=== PATIENT | female | born 1955 | race Caucasian/White ===

== ENCOUNTER → 2016-02-15 | Outpatient (CLI) | payer OTHER ==
[~2016-02-15] MED LIST: ANT25 PO; CLC6 PO; CLON0.1T12 PO; EFFSR75 PO; FENO145T26 PO; GABA-113 PO; LEVO75TA5 PO; LISI10TA PO; LSNP/30 PO; MECL1TAB42 PO; MONT1TAB3 PO; ONDA4TAB10 SL; PANT1TAB48 PO; SNG10 PO
[2016-02-15 16:55] LABS: THYROID STIMULATING HORMONE 4.51 uIu/ml (0.300-4.500)
== END | disposition home or self-care (01) ==
LOC: C.LABBFT 11:45
PROVIDERS: ATTEND Internal Medicine
DX: E03.9 Hypothyroidism, unspecified (principal)

== ENCOUNTER → 2016-04-08 | Outpatient (CLI) | payer OTHER ==
--- NOTE | 2016-04-09 12:37 | MAMMOGRAPHY REPORT ---
BILATERAL DIGITAL SCREENING MAMMOGRAM TOMOSYNTHESIS WITH CAD: 04/08/2016 CLINICAL HISTORY: Routine screening. Patient has no complaints. TECHNIQUE: Breast tomosynthesis in addition to standard 2D mammography was performed. Current study was also evaluated with a Computer Aided Detection (CAD) system. COMPARISON: Comparison is made to exams dated: 04/03/2015 mammogram, 03/31/2014 mammogram, 03/28/2013 mammogram, 03/25/2011 mammogram, and 03/21/2010 mammogram - [facility]. BREAST COMPOSITION: The tissue of both breasts is heterogeneously dense, which may obscure small ma sses. FINDINGS: The parenchymal pattern is unchanged. No developing mass, architectural distortion or clu ster of suspicious microcalcifications is seen in either breast. IMPRESSION: ACR BI-RADS CATEGORY 2: BENIGN There is no mammographic evidence of malignancy. A 1 year screening mammogram is recommended. The p atient will receive written notification of the results. Approximately 10% of breast cancers are not detected with mammography. A negative mammographic repor t should not delay biopsy if a clinically suggestive mass is present. Joy Colindres M.D. ay/:04/08/2016 17:21:45 Larriman: Dayan JOAQUIN(Radha)(Corina), [facility] letter sent: Normal 1/2 BI-RADS Code: ACR BI-RADS Category 2: Benign
== END | disposition home or self-care (01) ==
LOC: C.MAMM 11:06
PROVIDERS: ATTEND Internal Medicine
DX: Z12.31 Encounter for screening mammogram for malignant neoplasm of breast (principal)

== ENCOUNTER → 2016-04-23 | Outpatient (CLI) | payer OTHER ==
[2016-04-23 12:32] LABS: ALT/SGPT 22 U/L (12-78); BLOOD UREA NITROGEN 14 mg/dl (7-18); BUN/CREATININE RATIO 18.4 (10-20); CALCIUM 9.5 mg/dl (8.5-10.1); CARBON DIOXIDE 27 mmol/L (21-32); CHLORIDE 104 mmol/L (98-107); CHOLESTEROL 171 mg/dl (0-200); CREATININE 0.75 mg/dl (0.60-1.20); GLUCOSE 96 mg/dl (70-99); POTASSIUM 3.9 mmol/L (3.5-5.1); SODIUM 139 mmol/L (136-145); TRIGLYCERIDES 233 mg/dl (0-150); VERY LOW DENSITY LIPOPROT CALC 47 mg/dl
[2016-04-23 12:41] LABS: ALB/GLOB RATIO 0.8 (0.9-2); ALKALINE PHOSPHATASE 70 U/L (45-117); AST/SGOT 22 U/L (15-37); CHOLESTEROL/HDL RATIO 3.6; HDL CHOLESTEROL 47 mg/dl; LDL CHOLESTEROL CALCULATED 77 mg/dl
[2016-04-23 12:47] LABS: ESTIMATED AVERAGE GLUCOSE 123 mg/dl; HA1C FLAG Normal (Normal)
--- NOTE | 2016-04-29 06:18 | CODING QUERY MEDICAL NECESSITY ---
SUPPORTING DIAGNOSIS NEEDED Akhil ZHANG, A supporting diagnosis is required for the test/procedure performed on this patient in order for us to be reimbursed by the patient's insurance. Please provide a supporting diagnosis for the following test/procedure listed below next to the test name along with your signature. *If there is no additional diagnosis for this patient that would support the following test/procedure please document that below next to the test/procedure. Test(s)/Procedure(s) that require a supporting diagnosis: * [id number] GLYCATED HEMOGLOBIN DIAGNOSIS: DATE OF SERVICE: 04/23/16 Provider Signature: Date: Thank you Wilner Ibarra [facility] Information Management Once completed, please kindly fax back to [phone] For questions please call [phone]
== END | disposition home or self-care (01) ==
LOC: C.LABBFT 07:33
PROVIDERS: ATTEND Internal Medicine
DX: I10 Essential (primary) hypertension (principal); E78.5 Hyperlipidemia, unspecified; E03.9 Hypothyroidism, unspecified; R73.03 Prediabetes

== ENCOUNTER 2016-08-15 21:48 | Emergency (ER) | payer OTHER ==
[~2016-08-15] VITALS: Ht 154.9 cm; Wt 96.8 kg
[~2016-08-15 21:48] MED LIST changes: -LEVO75TA5 PO; -LSNP/30 PO; -MECL1TAB42 PO; -MONT1TAB3 PO; -ONDA4TAB10 SL
[2016-08-15 21:49] VITALS: TEMP 36.9; Ht 154.9 cm; Wt 96.8 kg
[2016-08-15] MEDS ORDERED: IBUPROFEN 800 MG TAB PO STA (22:17)
[2016-08-15] MEDS ORDERED: ONDANSETRON INJ 2 MG/ML 2 ML VIAL IV STA (22:25)
[2016-08-15] MEDS ORDERED: SODIUM CHLORIDE 0.9% 1000ML 1,000 ML IV STA (22:25)
[2016-08-15] MEDS ORDERED: MONT1TAB3 PO (22:40)
[2016-08-15] MEDS ORDERED: MECL1TAB42 PO (22:40)
[2016-08-15] MEDS ORDERED: LSNP/30 PO (22:44)
[2016-08-15] MEDS ORDERED: LEVO75TA5 PO (22:44)
[2016-08-15] MEDS ORDERED: ONDA4TAB10 SL (23:00)
--- NOTE | 2016-08-15 23:01 | EMERGENCY ROOM VISIT NOTE ---
ED Visit Note First contact with patient: 22:04 CHIEF COMPLAINT: Sunburn over most of body from tanning bed HISTORY OF PRESENT ILLNESS: This 61-year-old female patient presents to the emergency department after they sustained a sunburn over most of her body from a tanning bed this afternoon. This occurred approximately 10 hours prior to arrival in the emergency department. The patient states she was at [employer], where she was in a standard tanning bed for 9 minutes. The patient was not wearing sunscreen. The patient states over the afternoon, she began experiencing nausea, lightheadedness, dizziness, chills, and significant pain over her back, buttocks, and most of the rest of her body. She rates her pain 10/10. The patient has not taken any medications for pain or the burn. Pain is worse with movement and pressure. Sensation is still present. There is no blistering. No other injury sustained. REVIEW OF SYSTEMS: A 6 system review of systems was completed with positives and pertinent negatives listed in the HPI. ALLERGIES: Hydrocodone, hydromorphone, morphine, oxycodone, propoxyphene, tramadol, Darvocet MEDICATIONS: meclizine, Singulair, venlafaxine, pantoprazole, lisinopril, fenofibrate, gabapentin, clonidine, colchicine, Synthroid PMH: Allergic anxiety, depression, GERD, hypertension, chronic pain, sleep disorder, gout, hypothyroidism SOCIAL HISTORY: And lives locally with her mother. She denies drug, tobacco use. The patient does admit to occasional alcohol use. PHYSICAL EXAM: Vital Signs reviewed, see Nurse's notes, vital signs stable, no fever. GENERAL: 61-year-old female, awake, alert, well appearing, no acute distress HEENT: Normocephalic, atraumatic. No carbonaceous sputum or singed nasal hair. Oropharynx without edema or erythema. NECK: No stridor LUNGS: Clear to ausculation. No wheezes or rales. CARDIAC: Regular rate, normal rhythm MUSCULOSKELETAL: No gross deformity. SKIN: Erythema and warmth, along with swelling, noted over the majority of the patient's body. Erythema is worse on patient's back, buttocks, chest, and upper legs. I estimate approximately 80-90% BSA is affected. There is no blistering. No signs of infection or foreign body. There is no skin sloughing. NEURO: No sensory or motor deficits noted over all dermatomes and myotomes tested. EMERGENCY DEPARTMENT COURSE AND DECISION MAKING: I examined the patient. The patient presented with widespread sunburn. No signs of airway involvement. There is no critical body part involvement or burn severity to warrant burn center referral. ER Treatment: The patient was given 1 L normal saline solution bolus and 4 mg Zofran IV for nausea and hydration. The patient was also given a dose of 800 mg by mouth ibuprofen. The patient does report improvement in her symptoms with these medications and fluids. I strongly encouraged the patient to drink plenty of fluids to maintain her hydration status. Discharge instructions reviewed. The patient was discharged home in stable condition. DIFFERENTIAL DIAGNOSIS: Infection, blisters, dehydration, systemic infection, and others DIAGNOSIS: Sunburn due to tanning bed DISCHARGE INSTRUCTIONS: For pain control, you can use the following nwir-eho-ybjisie medicines (if >12 yo): - Regular strength (325mg/tab) Tylenol (acetaminophen) 2 tabs every 4-6 hours as needed. Do not exceed 9 tablets in a 24 hour period. Avoid taking more than 3 grams (3000 mg) of Tylenol per day. This includes any other sources of acetaminophen you may take on a regular basis. - Regular strength (200 mg/tab) Advil (ibuprofen) 3-4 tabs every 6-8 hours as needed. Do not exceed a dose of 3200 mg per day. Keep yourself well hydrated. You should be drinking plenty of fluids throughout the day and night. Keep the skin well moisturized with a non-scented lotion. You may also use aloe for relief of discomfort. Monitor the burn for blisters or infection. If you experience increased redness , warmth, pus, drainage, you should return to the emergency department for further evaluation and treatment. Further, if you experience chest pain, dyspnea, increased nausea, vomiting, confusion, loss of consciousness, or other symptoms, return to the emergency department for further evaluation. Follow-up with your primary care provider in 2-3 days for recheck of burn and further evaluation and treatment. You may take Zofran as prescribed for nausea. Problem List Medical Problems: (1) ACUTE BRONCHITIS Status: Resolved (2) ACUTE TONSILLITIS Status: Resolved (3) BACTERIAL PNEUMONIA NOS Status: Resolved (4) BENIGN HYPERTENSION Status: Chronic (5) CARPAL TUNNEL SYNDROME Status: Resolved (6) CHR ETHMOIDAL SINUSITIS Status: Resolved (7) CONGESTIVE HEART FAILURE NOS Status: Chronic (8) DEPRESSIVE DISORDER NEC Status: Chronic (9) ESOPHAGEAL REFLUX Status: Chronic (10) FAM HX-DIABETES MELLITUS Status: Chronic (11) FAM HX-ISCHEM HEART DIS Status: Chronic (12) GOITER NOS Status: Resolved (13) HEPATITIS NOS Status: Chronic (14) HYPERTENSION NOS Status: Chronic (15) 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 Status: Chronic (16) LUMBOSACRAL SPONDYLOSIS Status: Chronic (17) OBESITY, NOS Status: Chronic (18) OBSTRUCTIVE SLEEP APNEA (ADULT) (PEDIATRIC) Status: Chronic (19) OSTEOPOROSIS NOS Status: Chronic (20) SACROILIITIS NEC Status: Chronic (21) Sciatica Status: Chronic Surgical Problems: (1) History of appendectomy Status: Resolved Current/Historical Medications Scheduled Clonidine Hcl (Catapres), 1 TAB PO HS Fenofibrate (Tricor ), 145 MG PO QAM Gabapentin (Neurontin), 300 MG PO HS Levothyroxine Sodium (Levothyroxine Sodium), 75 MG PO DAILY Lisinopril (Zestril), 30 MG PO DAILY Meclizine Hcl (Meclizine Hcl), 1 TAB PO QAM Montelukast Sodium (Singulair), 10 MG PO DAILY Ondasetron Odt (Zofran Odt), 4 MG SL Q6H Pantoprazole (Protonix), 40 MG PO QAM Venlafaxine Hcl (Effexor Extended Rel), 75 MG PO QAM Scheduled PRN Colchicine (Colcrys), 1 TAB PO DAILY PRN for GOUT FLARE-UP Allergies Coded Allergies: Hydrocodone (Unverified Allergy, Mild, ITCH, 08/01/15) Hydromorphone (Verified Allergy, Unknown, UN, 08/01/15) Morphine (Verified Allergy, Unknown, U NK, 08/01/15) Oxycodone (Verified Allergy, Unknown, UNK, 08/01/15) Propoxyphene (Verified Allergy, Unknown, UNK, 08/01/15) Tramadol (Unverified Allergy, Unknown, ITCH, 08/01/15) Uncoded Allergies: DARVOCET (Allergy, Mild, RASH, 07/05/15) Vital Signs Date Time Temp Pulse Resp B/P (MAP) Pulse Ox O2 Delivery O2 Flow Rate FiO2 08/16/16 00:00 88 18 118/62 99 08/15/16 23:15 92 18 113/55 99 Room Air 08/15/16 21:49 36.9 107 18 130/67 99 Room Air Medications Administered Medications (Trade) Dose Ordered Sig/Dory Route Start Time Stop Time Status Last Admin Dose Admin Ibuprofen (Motrin Tab) 800 mg NOW STAT PO 08/15/16 22:17 08/15/16 22:18 DC 08/15/16 22:47 800 MG Sodium Chloride 1,000 ml @ 999 mls/hr Q1H1M STAT IV 08/15/16 22:25 08/15/16 23:25 DC 08/15/16 22:46 999 MLS/HR Ondansetron HCl (Zofran Inj) 4 mg NOW STAT IV 08/15/16 22:25 08/15/16 22:26 DC 08/15/16 22:46 4 MG Departure Information Impression Primary Impression: Sunburn due to tanning bed Dispostion Home / Self-Care Condition GOOD Prescriptions Ondasetron Odt (ZOFRAN ODT) 4 Mg Tab 4 MG SL Q6H for Nausea, #6 TAB Prov: Meaghan Eubanks PA-C 08/15/16 Referrals Maxim Renee M.D. (PCP) Patient Instructions My [facility] Additional Instructions For pain control, you can use the following yjhj-gsy-opalyil medicines (if >12 yo): - Regular strength (325mg/tab) Tylenol (acetaminophen) 2 tabs every 4-6 hours as needed. Do not exceed 9 tablets in a 24 hour period. Avoid taking more than 3 grams (3000 mg) of Tylenol per day. This includes any other sources of acetaminophen you may take on a regular basis. - Regular strength (200 mg/tab) Advil (ibuprofen) 3-4 tabs every 6-8 hours as needed. Do not exceed a dose of 3200 mg per day. Keep yourself well hydrated. You should be drinking plenty of fluids throughout the day and night. Keep the skin well moisturized with a non-scented lotion. You may also use aloe for relief of discomfort. Monitor the burn for blisters or infection. If you experience increased redness , warmth, pus, drainage, you should return to the emergency department for further evaluation and treatment. Further, if you experience chest pain, dyspnea, increased nausea, vomiting, confusion, loss of consciousness, or other symptoms, return to the emergency department for further evaluation. Follow-up with your primary care provider in 2-3 days for recheck of burn and further evaluation and treatment. You may take Zofran as prescribed for nausea.
[2016-08-16] VITALS: BP 118/62; PULSE 88; O2SAT 99
== END 2016-08-16 | disposition home or self-care (01) ==
LOC: C.EDB 21:49 → C.EDD 08-16
DX: L56.8 Other specified acute skin changes due to ultraviolet radiation (principal); I11.0 Hypertensive heart disease with heart failure; K21.9 Gastro-esophageal reflux disease without esophagitis; R42 Dizziness and giddiness; M47.817 Spondylosis without myelopathy or radiculopathy, lumbosacral region; E66.9 Obesity, unspecified; J44.9 Chronic obstructive pulmonary disease, unspecified; M81.0 Age-related osteoporosis without current pathological fracture; M54.30 Sciatica, unspecified side; Z83.3 Family history of diabetes mellitus; Z82.49 Family history of ischemic heart disease and other diseases of the circulatory system; Z79.899 Other long term (current) drug therapy

== ENCOUNTER → 2016-08-27 | Outpatient (CLI) | payer OTHER ==
[~2016-08-27] MED LIST changes: -ANT25 PO; +LEVO75TA5 PO; -LISI10TA PO; +LSNP/30 PO; +MECL1TAB42 PO; +MONT1TAB3 PO; +ONDA4TAB10 SL; -SNG10 PO
[2016-08-27 12:46] LABS: ALT/SGPT 20 U/L (12-78); AST/SGOT 15 U/L (15-37); BLOOD UREA NITROGEN 27 mg/dl (7-18); BUN/CREATININE RATIO 24.7 (10-20); CALCIUM 9.9 mg/dl (8.5-10.1); CARBON DIOXIDE 29 mmol/L (21-32); CHLORIDE 106 mmol/L (98-107); GLUCOSE 102 mg/dl (70-99); MAGNESIUM 2.1 mg/dl (1.8-2.4); SODIUM 139 mmol/L (136-145)
[2016-08-27 12:54] LABS: ALB/GLOB RATIO 0.9 (0.9-2); ALKALINE PHOSPHATASE 71 U/L (45-117); CHOLESTEROL 164 mg/dl (0-200); CHOLESTEROL/HDL RATIO 3.4; HDL CHOLESTEROL 48 mg/dl; LDL CHOLESTEROL CALCULATED 75 mg/dl; TRIGLYCERIDES 204 mg/dl (0-150); VERY LOW DENSITY LIPOPROT CALC 41 mg/dl
[2016-08-27 13:25] LABS: ESTIMATED AVERAGE GLUCOSE 120 mg/dl; HA1C FLAG Normal (Normal)
== END | disposition home or self-care (01) ==
LOC: C.LABBFT 09:10
PROVIDERS: ATTEND Physician Assistant Medical
DX: E78.5 Hyperlipidemia, unspecified (principal); E03.9 Hypothyroidism, unspecified; R60.9 Edema, unspecified; R73.03 Prediabetes

== ENCOUNTER → 2016-11-06 | Outpatient (CLI) | payer OTHER ==
--- NOTE | 2016-11-06 09:38 | DIAGNOSTIC IMAGING REPORT ---
BRAIN WITHOUT CONTRAST CLINICAL HISTORY: 61 years-old Female presenting with NEW ONSET HEADACHES and dizziness, no trauma. TECHNIQUE: Multisequence, multiplanar MR imaging of the brain was performed without the use of intravenous contrast. IV contrast: None. COMPARISON: CT head from 03/20/2014 and MR brain from 2005. FINDINGS: Ventricles and sulci normal in size. Multiple (nearly 20) foci of subcortical white matter T2/FLAIR hyperintensity, nonspecific. No mass effect or midline shift. No restricted diffusion to suggest acute ischemia. No hemorrhage. No extra-axial fluid collection. T2 skull base flow voids preserved. Bone marrow signal intensity within the calvarium within normal limits. IMPRESSION: 1. No acute intracranial pathology. 2. Multiple nonspecific foci of subcortical white matter abnormal signal intensity. The appearance is not significant changed since 2005. This could be secondary to chronic small vessel ischemic change, demyelinating disease or chronic migraines among other etiologies. Electronically signed by: Renzo Moreno M.D. 11/06/2016 9:37 AM Dictated Date/Time: 11/06/2016 9:32 AM
== END | disposition home or self-care (01) ==
LOC: C.MRI 08:57
PROVIDERS: ATTEND Psychiatry & Neurology Neurology
DX: R51 Headache (principal)

== ENCOUNTER → 2016-12-05 | Outpatient (CLI) | payer OTHER ==
[2016-12-05 16:53] LABS: BASO % 0.3 %; BASO ABS # 0.02 K/uL (0-0.2); COMPLETE YES; EOS % 1.1 %; IG% 0.1 %; LYMPH % 26.5 %; MEAN CELL VOLUME 95.2 fL (80-100); MEAN CORPUSCULAR HEMOGLOBIN 32.3 pg (25-34); MEAN CORPUSCULAR HGB CONC 33.9 g/dl (32-36); MEAN PLATELET VOLUME 11.6 fL (7.4-10.4); MONO % 6.7 %; NEUT % 65.3 %; PLATELET COUNT 187 K/uL (130-400); RED BLOOD COUNT 3.78 M/uL (4.2-5.4); WHITE BLOOD COUNT 7.16 K/uL (4.8-10.8)
[2016-12-05 17:08] LABS: TOTAL IRON BINDING CAPACITY 304 mcg/dl (250-450)
[2016-12-05 17:34] LABS: LYME DISEASE AB IGG NEG (NEG); LYME DISEASE AB IGM NEG (NEG)
== END | disposition home or self-care (01) ==
LOC: C.LABBFT 15:39
PROVIDERS: ATTEND Psychiatry & Neurology Neurology
DX: R51 Headache (principal); R26.89 Other abnormalities of gait and mobility; R25.2 Cramp and spasm

== ENCOUNTER → 2017-01-27 | Outpatient (CLI) | payer OTHER ==
[~2017-01-27] VITALS: Ht 154.9 cm; Wt 100.7 kg
[~2017-01-27] MED LIST changes: +PANT1TAB3 PO; -PANT1TAB48 PO
[2017-01-27 15:10] VITALS: BP 115/75; PULSE 91; Ht 154.9 cm; Wt 100.7 kg
== END | disposition home or self-care (01) ==
LOC: C.NEUR 13:50
PROVIDERS: ATTEND Physician Assistant Medical
DX: R06.83 Snoring (principal); G25.81 Restless legs syndrome; R53.83 Other fatigue; E66.9 Obesity, unspecified; G44.84 Primary exertional headache

== ENCOUNTER → 2017-02-15 | Outpatient (CLI) | payer OTHER ==
--- NOTE | 2017-02-16 05:29 | PAP/PSG TECHNICIAN REPORT ---
[facility] Janitorial Supervisor Polysomnogram Report Study name: None Report date: 02/16/2017 Study date: 02/15/2017 Referring Physician: Britt Garrido PA-C Name: TRACY MILLER Interpreting Physician: Robin Yen M.D. Date of : 1955 Janitorial Supervisor: Malia Vega RPS. Sex: Female Age: 61 StudyType: PSG Weight: 222.1 lbs Height: 61 years, Height 5' 1" Neck Circum:14.5inches BMI: 41.96 Medications: Clonidine HCl 0.1mg, Colcrys 0.6mg, Gabapentin 300mg, HCTZ 25mg, Indomethacin 25mg, Levothyroxine 75mcg, Lisinopril 30mg, Meclizine HCl 25mg, Montelukast Sodium 10mg, Pantoprazole Sodium 40mg, Rosuvastatin Calcium 10mg, Venlafaxine HCl ER 75mg Patient History Study started on room air with no ETCO2 monitoring in room #6. 61 yr old female here tonight for a diagnostic psg. She has headaches with exertion and becomes short of breath. She snores and was diagnosed with mild SHAN in 2011 but canceled her titration study. She is tired all the time and takes naps regularly. Her ESS=17/24. Neck circ=14.5inches. Parameters Monitored NPSG: E1-M2, E2-M1, Fp1-M2, Fp2-M1, F3-M2, F4-M2, F4-M1, C3-M2, C4-M2, C4-M1, O1-M2, O2-M2, O2-M1, T3-M2, T4-M1, P3-M2, P4-M1, CHIN1, CHIN2, HR, EKG, Legs, PFLOW, SNOR, FLOW, CFLOW, Tidal Volume, THOR, ABDO, SpO2, PLTH, CPRESS, ETCO2 Wave, ETCO2, pH Sleep Architecture Sleep Stages Time at Lights Off 8:52:55 PM STAGES Time (min.) TST (%) Time at Lights On 5:22:25 AM Wake 130.0 -- Total Recording Time (TRT) 509.50 min. N1 28.0 7 Total Sleep Period (TSP) 442.5 min. N2 264.5 70 Total Sleep Time (TST) 379.5min. N3 65.0 17 Awake Time 130.0 min. REM 22.0 6 Wake after Sleep Onset 63.0 min. Sleep Efficiency (SE) 74 % Sleep Onset Latency (JANET) 67.0 min. Number of Stage 1 Shifts None Awakenings 27 Stage Changes 111 Number of REM periods 6 REM 22.0 6 REM Latency 354.5 min. NREM 357.5 94 Body Position Analysis Supine Right Left Side Prone Vertical Total Sleep Time (min.) 384.2 113.0 0.0 113.00 0.0 0.1 Total Sleep Time (%) 70% 30% 0% 30 0% N/A% Total Sleep Time REM (min.) 22.0 0.0 0.0 None 0.0 0.0 Total Sleep Time NREM (min.) 244.5 113.0 0.0 None 0.0 0.0 Intermittent Wake (min.) 117.7 11.9 0.0 None 0.0 0.1 Total Sleep Period (%) 72% None None None None None Arousals Myoclonus (PLM) * Events Count Index Events Count Index Spontaneous 15 2 Events Awake (PLMW) 176 81.2 Respiratory 38 7.3 Events Asleep w/ Arousal (PLMA) 15 2.4 PLM 15 2 Events Asleep w/o Arousal (PLMS) 351 55.5 Snoring 10 2 Total Asleep 366 57.9 Total 78 12 Total 542 64 Respiratory Analysis * CA OA MA CH H RERA Total Count 0 24 0 0 102 3 126 Index 0.0 3.8 0.0 0 16.1 0 20.4 Mean Duration 0.0 18.0 0.0 0.00 27.4 21.0 25.5 Longest Duration 0.0 30.5 0.0 0.00 0.0 27.4 55.2 Respiratory Event Summary Total Supine ~Supine Right Left Prone REM NREM Apneas Count 24 13 11 11 N/A N/A 0 24 Index 3.8 3 6 5.8 N/A N/A 0 4 Hypopneas (4% Desat) Count 102 101 1 1 N/A N/A 15 87 Index 16.1 22.7 1 0.5 N/A N/A 40.9 14.6 Apneas & All Hypopneas Count 126 114 12 12 N/A N/A 15 111 Index 19.9 26 6 6 N/A N/A 40.9 18.6 Respiratory Events (Underground Foreman+All Hyp+RERA) Count 126 114 15 15 N/A N/A 15 111 Index 20.4 26 8 8.0 N/A N/A 40.9 19.1 Respiratory Related Arousal Count 38 114 5 5 N/A N/A 7 39 Index 7.3 9 3 3 N/A N/A 19 7 Snoring Analysis Supine Right Left Prone REM NREM Total Snore duration 7.1 min Snores count 197 95 N/A N/A 18 274 292 Snore mean duration 1.5 Sec Snores index 44 50 N/A N/A 49.1 46.0 46.2 TST with snoring (%) 1.9% Desaturation Event Summary: Minimum %SpO2 Event Count Mean/Min/Max Duration(sec.) Desaturation Index % Time In Bed > 90 204 31.7 / 9.0 / 59.8 25.8 93.5 86 - 90 6 11.5 / 8.0 / 15.5 11.6 6.1 81 - 85 0 N/A 0.0 0.4 76 - 80 0 N/A 0.0 0.0 71 - 75 0 N/A 0.0 0.0 66 - 70 0 N/A 0.0 0.0 61 - 65 0 N/A 0.0 0.0 56 - 60 0 N/A 0.0 0.0 51 - 55 0 N/A 0.0 0.0 < 50 0 N/A 0.0 0.0 Total REM NREM Awake <50% 0.0 min. 0.0 min. 0.0 min. 0.0 min. 51 - 60% 0.0 min. 0.0 min. 0.0 min. 0.0 min. 61 - 70% 0.0 min. 0.0 min. 0.0 min. 0.0 min. 71 - 80% 0.1 min. 0.0 min. 0.1 min. 0.0 min. 81 - 90% 33.2 min. 8.8 min. 21.4 min. 2.9 min. 91 - 100% 474.8 min. 13.2 min. 336.0 min. 125.6 min. Average 93 92 93 94 Minimum SpO2 80 82 80 85 Desaturation Event Index 24.6 60.0 28.5 7.8 # Desat. Events below 89% 66 19 44 3 Time(%) with Saturation below 89% 2.4 0.9 1.2 0.3 Time(min.) with Saturation below 89% 12.1 4.8 6.1 1.3 Time (mins) REM (mins) NREM (mins) % of TST SpO2 Below 90% 118 21 N97 4.7 SpO2 Below 88% 31 0 0 2 Heart Rate Analysis Min (bpm) Max (bpm) Average (bpm) Awake 59 127 76 NREM 57 89 70 REM 61 87 72 Overall 57 89 70 Supplemental O2 Values Minimum O2 level: None Value Start Time End Time Janitorial Supervisor Comments Mrs. Mehta slept in the right and supine positions. No cardiac arrhythmia noted. PLM's were noted. No bruxism noted. Snoring was noted and scored as a 3 on a scale of 1 through 5. (0=no snoring, 5=snoring loud enough to be heard through a closed door or down the aguilar way) She did not use the restroom during the night. She stated that she slept about the same as usual. The final report will be interpreted and signed by a sleep physician. The completed physician report will then be placed in the patient medical record Therapy (cm H2O) 0 TIB (min.) 509.5 TST (min.) 379.5 Sleep Onset (min.) 67.0 REM Onset From Sleep (min.) 354.5 Sleep Efficiency % 74 Wakefulness (%) 26 Wakefulness (min.) 130.0 NREM 1 (%) 7 NREM 1 (min.) 28.0 NREM 2 (%) 70 NREM 2 (min.) 264.5 NREM 3 (%) 17 NREM 3 (min.) 65.0 REM (%) 6 REM (min.) 22.0 # Arousals 78 Arousal Index 12 # Snore 292 Snore Index 46.2 AHI 19.9 AHI Supine 26 AHI Non-Supine 6 NREM AHI 18.6 REM AHI 40.9 RDI 20.4 # Obstructive Apnea 24 # Central Apnea 0 # Mixed Apnea 0 # Hypopneas 102 RERAs 3 Total Respiratory Events 132 Time Below SpO2 89% (min.) 10.9 Mean NREM SpO2 (%) 93 Mean REM SpO2 (%) 92 Mean Sleep SpO2 (%) 93 Min NREM SpO2 (%) 80 Min REM SpO2 (%) 82 Position Supine (min.) 384.2 Position Non-supine (min.) 113.0 LM Index Sleep 57.9 LM Index NREM 60.6 LM Index REM 13.6 Mean Heart Rate (bpm) 70 Min Heart Rate (bpm) 57
--- NOTE | 2017-02-18 10:37 | POLYSOMNOGRAPH REPORT ---
CLINICAL DATA: A 61-year-old female with BMI of 42 referred by Britt Garrido and myself with a history of headaches with exertion, shortness of breath, snoring, and history of mild sleep apnea in 2012. She is tired all the time and naps frequently. Her [place] sleepiness score was elevated at 17/24. SLEEP ARCHITECTURE: Total sleep period was 442.5 minutes. Total sleep time was 379.5 minutes divided between 357.5 minutes of non-REM sleep and 22 minutes of REM sleep. Sleep onset latency was delayed at 67 minutes. REM latency was delayed at 354.5 minutes. Sleep efficiency was reduced at 74%. Wake after sleep onset was elevated at 63 minutes. Sleep consisted of stage N1 7%, stage N2 70%, stage N3 17%, and REM 6%. AROUSAL DATA: Seventy-eight arousals were recorded for an index of 12 per hour. Thirty-eight were due to respiratory events. PLM DATA: Significantly elevated limb movements during sleep were noted. There were 366 limb movements during sleep noted for an index of 58 per hour with arousal index of 2.4 per hour. RESPIRATORY DATA: Moderate sleep apnea was documented. The AHI was 20. There were 24 obstructive apneic episodes. The longest apneic episode was 30.5 seconds. There were 102 hypopneic episodes with a mean duration of 27.4 seconds. OXIMETRY DATA: Nocturnal hypoxemia was seen. Oxygen rebecca was 80% during non-REM sleep. The mean saturation was 92%. Time below 88% was 31 minutes. EKG: Heart rates ranged from 57 to 89 beats per minute. No arrhythmias were noted. SYSTEMS PROJECT MANAGER'S COMMENTS: The patient slept in the right and supine positions. Snoring was moderate, rated 3 on a scale of 1-5. IMPRESSION: Moderate sleep apnea/hypopnea with an AHI of 20 with nocturnal hypoxemia and frequent leg movements during sleep. RECOMMENDATIONS: The patient should be considered for a repeat sleep study with CPAP or use of an oral appliance. ZEINAB
== END | disposition home or self-care (01) ==
LOC: C.NEUR 20:00
PROVIDERS: ATTEND Physician Assistant Medical
DX: G47.33 Obstructive sleep apnea (adult) (pediatric) (principal); G47.61 Periodic limb movement disorder; Z86.69 Personal history of other diseases of the nervous system and sense organs; E66.9 Obesity, unspecified

== ENCOUNTER → 2017-02-24 | Outpatient (CLI) | payer OTHER ==
[~2017-02-24] MED LIST changes: -ONDA4TAB10 SL
[2017-02-24 12:23] LABS: HEMOGLOBIN A1C 6.2 % (4.5-5.6)
== END | disposition home or self-care (01) ==
LOC: C.LAB1850 10:10
PROVIDERS: ATTEND Physician Assistant Medical
DX: R53.83 Other fatigue (principal); G25.81 Restless legs syndrome; R73.03 Prediabetes

== ENCOUNTER → 2017-03-03 | Outpatient (CLI) | payer OTHER ==
[2017-03-03 13:25] LABS: ALBUMIN 3.7 gm/dl (3.4-5.0); ALT/SGPT 20 U/L (12-78); AST/SGOT 18 U/L (15-37); BLOOD UREA NITROGEN 19 mg/dl (7-18); CALCIUM 9.7 mg/dl (8.5-10.1); CARBON DIOXIDE 26 mmol/L (21-32); CHOLESTEROL 180 mg/dl (0-200); CREATININE 0.99 mg/dl (0.60-1.20); GLUCOSE 107 mg/dl (70-99); POTASSIUM 3.9 mmol/L (3.5-5.1); SODIUM 137 mmol/L (136-145)
[2017-03-03 13:30] LABS: ALKALINE PHOSPHATASE 67 U/L (45-117); LDL CHOLESTEROL CALCULATED 81 mg/dl; TOTAL PROTEIN 7.9 gm/dl (6.4-8.2); TRANSFERRIN 235 mg/dl (200-360)
== END | disposition home or self-care (01) ==
LOC: C.LABBFT 09:35
PROVIDERS: ATTEND Internal Medicine
DX: E78.5 Hyperlipidemia, unspecified (principal); R25.2 Cramp and spasm

== ENCOUNTER → 2017-03-09 | Outpatient (CLI) | payer OTHER ==
--- NOTE | 2017-03-10 06:42 | PAP/PSG TECHNICIAN REPORT ---
[facility] Anesthesiology Fellow Polysomnogram Report Study name: None Report date: 03/10/2017 Study date: 03/09/2017 Referring Physician: Britt Garrido PA-C Name: TRACY MILLER Interpreting Physician: Robin Yen M.D. Date of : 1955 Anesthesiology Fellow: Yo Joshua RPSGT. Sex: Female Age: 61 StudyType: PSG PAP Weight: 222 lbs 14.5 inches Height: 61 years, Height 5' 1" Neck Circum: BMI: 41.94 Medications: CLONIDINE HCL 0.1 MG, COLCRYS, O.6 MG, GABAPENTIN 300 MG, INDOMETHACIN 25 MG, LEVOTHYROXINE SODIUM 75 MCG, LISINOPRIL 30 MG, MECLIZINE HCL 25 MG, MONTELUKAST SODIUM 10 MG, PANTOPRAZOLE SODIUM 40 MG, VENLAFAXINE HCL ER 75 MG Patient History PATIENT HAS HISTORY OF HYPERTENSION, HYPOTHYROIDISM AND GERD. SHE HAD A SLEEP STUDY DONE IN FEBRUARY OF 2017 AND WAS POSITIVE FOR SHAN WITH AN AHI OF 20.2/HR. SHE IS HERE TODAY FOR A CPAP TITRATION. RM 6 Parameters Monitored NPSG: E1-M2, E2-M1, Fp1-M2, Fp2-M1, F3-M2, F4-M2, F4-M1, C3-M2, C4-M2, C4-M1, O1-M2, O2-M2, O2-M1, T3-M2, T4-M1, P3-M2, P4-M1, CHIN1, CHIN2, HR, EKG, Legs, PFLOW, SNOR, FLOW, CFLOW, Tidal Volume, THOR, ABDO, SpO2, PLTH, CPRESS, ETCO2 Wave, ETCO2, pH Sleep Architecture Sleep Stages Time at Lights Off 9:46:01 PM STAGES Time (min.) TST (%) Time at Lights On 5:28:01 AM Wake 48.5 -- Total Recording Time (TRT) 462.50 min. N1 22.0 5 Total Sleep Period (TSP) 436.0 min. N2 329.5 80 Total Sleep Time (TST) 413.5min. N3 11.5 3 Awake Time 48.5 min. REM 50.5 12 Wake after Sleep Onset 22.5 min. Sleep Efficiency (SE) 90 % Sleep Onset Latency (JANET) 26.0 min. Number of Stage 1 Shifts None Awakenings 16 Stage Changes 67 Number of REM periods 2 REM 50.5 12 REM Latency 345.5 min. NREM 363.0 88 Body Position Analysis Supine Right Left Side Prone Vertical Total Sleep Time (min.) 428.4 32.5 0.0 32.50 0.0 0.0 Total Sleep Time (%) 92% 8% 0% 8 0% N/A% Total Sleep Time REM (min.) 50.5 0.0 0.0 None 0.0 0.0 Total Sleep Time NREM (min.) 330.5 32.5 0.0 None 0.0 0.0 Intermittent Wake (min.) 47.4 1.1 0.0 None 0.0 0.0 Total Sleep Period (%) 92% None None None None None Arousals Myoclonus (PLM) * Events Count Index Events Count Index Spontaneous 39 6 Events Awake (PLMW) 15 18.6 Respiratory 8 1.2 Events Asleep w/ Arousal (PLMA) 17 2.5 PLM 17 2 Events Asleep w/o Arousal (PLMS) 309 44.8 Snoring 6 1 Total Asleep 326 47.3 Total 70 10 Total 341 44 Respiratory Analysis * CA OA MA CH H RERA Total Count 0 1 0 0 25 5 26 Index 0.0 0.1 0.0 0 3.6 1 4.5 Mean Duration 0.0 11.7 0.0 0.00 19.0 15.9 18.3 Longest Duration 0.0 11.7 0.0 0.00 0.0 16.9 39.1 Respiratory Event Summary Total Supine ~Supine Right Left Prone REM NREM Apneas Count 1 1 0 0 N/A N/A 0 1 Index 0.1 0 0 0.0 N/A N/A 0 0 Hypopneas (4% Desat) Count 25 25 0 0 N/A N/A 12 13 Index 3.6 3.9 0 0.0 N/A N/A 14.3 2.1 Apneas & All Hypopneas Count 26 26 0 0 N/A N/A 12 14 Index 3.8 4 0 0 N/A N/A 14.3 2.3 Respiratory Events (Shank Sorter+All Hyp+RERA) Count 26 31 0 0 N/A N/A 12 14 Index 4.5 5 0 0.0 N/A N/A 14.3 3.1 Respiratory Related Arousal Count 8 31 0 0 N/A N/A 2 6 Index 1.2 1 0 0 N/A N/A 2 1 Snoring Analysis Supine Right Left Prone REM NREM Total Snore duration 8.6 min Snores count 450 0 N/A N/A 38 412 450 Snore mean duration 1.1 Sec Snores index 71 0 N/A N/A 45.1 68.1 65.3 TST with snoring (%) 2.1% Desaturation Event Summary: Minimum %SpO2 Event Count Mean/Min/Max Duration(sec.) Desaturation Index % Time In Bed > 90 29 41.2 / 17.5 / 65.0 3.8 98.7 86 - 90 1 35.4 / 35.4 / 35.4 9.8 1.3 81 - 85 0 N/A 0.0 0.0 76 - 80 0 N/A 0.0 0.0 71 - 75 0 N/A 0.0 0.0 66 - 70 0 N/A 0.0 0.0 61 - 65 0 N/A 0.0 0.0 56 - 60 0 N/A 0.0 0.0 51 - 55 0 N/A 0.0 0.0 < 50 0 N/A 0.0 0.0 Total REM NREM Awake <50% 0.0 min. 0.0 min. 0.0 min. 0.0 min. 51 - 60% 0.0 min. 0.0 min. 0.0 min. 0.0 min. 61 - 70% 0.0 min. 0.0 min. 0.0 min. 0.0 min. 71 - 80% 0.0 min. 0.0 min. 0.0 min. 0.0 min. 81 - 90% 6.1 min. 4.2 min. 1.9 min. 0.0 min. 91 - 100% 455.7 min. 46.3 min. 361.1 min. 48.3 min. Average 94 94 94 94 Minimum SpO2 86 86 88 91 Desaturation Event Index 3.9 15.4 2.3 3.7 # Desat. Events below 89% 5 4 1 N/A Time(%) with Saturation below 89% 0.3 0.3 0.0 0.0 Time(min.) with Saturation below 89% 1.5 1.4 0.1 0.0 Time (mins) REM (mins) NREM (mins) % of TST SpO2 Below 90% 13 6 N7 0.6 SpO2 Below 88% 4 0 0 0 Heart Rate Analysis Min (bpm) Max (bpm) Average (bpm) Awake 59 91 75 NREM 58 88 70 REM 58 84 67 Overall 58 88 69 Supplemental O2 Values Minimum O2 level: None Value Start Time End Time Anesthesiology Fellow Comments Ms. Miller slept in the right, left and supine positions. PVC's noted. Leg movements noted. No bruxism noted. CPAP was initiated at +4 CMH2O and up-titrated to an optimal level of +11 CMH2O, which nearly eliminated all respiratory events and snoring. A Resmed F10 full face size small mask was used during titration Ms. Miller awoke to use the restroom 0 times during the night. Ms. Miller stated I did not sleep as well as I do when I am in my own bed. The final report will be interpreted and signed by a sleep physician. The completed physician report will then be placed in the patient medical record. Therapy Event: Therapy (cm H20) 4 5 7 9 11 Total Time at Pressure (min.) 121.5 150.0 106.8 22.4 61.3 TST at Pressure (min.) 90.0 140.0 102.8 21.9 58.8 # Periods 1 1 1 1 1 Sleep Onset (min.) 26.0 0.0 0.0 0.0 0.0 REM Onset (min.) N/A N/A 100.0 0.0 0.0 Sleep Efficiency % 74 93 96 97 95 Wakefulness (%) 25.9 6.7 3.7 2.2 4.1 Wakefulness (min.) 31.5 10.0 4.0 0.5 2.5 NREM 1 (%) 7.0 1.7 5.2 8.9 5.7 NREM 1 (min.) 8.5 2.5 5.5 2.0 3.5 NREM 2 (%) 67.1 84.0 84.7 2.2 50.6 NREM 2 (min.) 81.5 126.0 90.5 0.5 31.0 NREM 3 (%) 0.0 7.7 0.0 0.0 0.0 NREM 3 (min.) 0.0 11.5 0.0 0.0 0.0 REM (%) 0.0 0.0 6.4 86.6 39.6 REM (min.) 0.0 0.0 6.8 19.4 24.3 # Arousals 22 15 16 6 11 Arousal Index 14.7 6.4 9.3 16.4 11.2 # Snore 73 228 116 20 13 Snore Index 48.7 97.7 67.7 54.7 13.3 AHI 3.3 2.6 3.5 19.2 2.0 AHI Supine 3.3 2.6 3.5 19.2 4.6 AHI Non-Supine N/A N/A N/A N/A 0.0 NREM AHI 3.3 2.6 1.9 0.0 0.0 REM AHI N/A N/A 26.4 21.6 4.9 RDI 4.0 4.3 3.5 19.2 2.0 # Obstructive 0 0 1 0 0 # Central Ap 0 0 0 0 0 # Mixed 0 0 0 0 0 # Hypopneas 5 6 5 7 2 RERAS 1 4 0 0 0 Total Respiratory Events 6 10 6 7 2 Time Below SpO2 89.00% (min.) 0.1 0.0 1.0 0.4 0.0 Mean NREM SpO2 (%) 93 94 94 95 95 Mean REM SpO2 (%) N/A N/A 91 94 95 Mean Sleep SpO2 (%) 93 94 94 94 95 Min NREM SpO2 (%) 88 90 89 93 93 Min REM SpO2 (%) N/A N/A 86 86 92 Position Supine (min.) 90.0 140.0 102.8 21.9 26.3 Position Non-supine (min.) 0.0 0.0 0.0 0.0 32.5 LM Index Sleep 80.0 19.3 89.3 21.9 0.0 LM Index NREM 80.0 19.3 95.7 48.0 0.0 LM Index REM N/A N/A 0.0 18.5 0.0 Mean Heart Rate (bpm) 75 70 67 70 64 Min Heart Rate (bpm) 65 63 59 61 58
--- NOTE | 2017-03-10 15:41 | POLYSOMNOGRAPH REPORT ---
CLINICAL DATA: A 61-year-old female with BMI of 41.9 referred by Britt Garrido, myself and Dr. Bell for a CPAP titration study. She had a sleep study done in February which showed moderate SHAN with an AHI of 20. SLEEP ARCHITECTURE: Total sleep period was 436 minutes. Total sleep time was 413.5 minutes divided between 363 minutes of non-REM sleep and 50.5 minutes of REM sleep. Sleep onset latency was 26 minutes. REM latency was 345.5 minutes. Sleep efficiency was 90%. Wake after sleep onset was 22.5 minutes. Sleep consisted of stage N1 5%, stage N2 80%, stage N3 3%, and REM 12%. AROUSAL DATA: 70 arousals were recorded for an index of 10 per hour. PLM DATA: Significantly elevated limb movements during sleep were noted. There were 326 limb movements during sleep noted for an index of 47.3 per hour with arousal index of 2.5 per hour. RESPIRATORY DATA: The AHI was 3.8. There was 1 obstructive apneic episode, 11.7 seconds in duration. There were 25 hypopneic episodes with mean duration of 19 seconds. OXIMETRY DATA: Transient hypoxemia was seen. Oxygen rebecca was 86%. Mean saturation was 94%. Time below 88% was 4 minutes. EKG: Heart rates ranged from 58-88 beats per minute. PVCs were noted. PHOTOGRAPHY INSTRUCTOR'S COMMENTS AND TREATMENT SUMMARY: The patient slept in the right, left, and supine positions. The patient used a ResMed F10 full facemask size small. She was titrated up to 11 cm water pressure. At her final pressure setting, she slept for 58.8 minutes with an AHI of 2. IMPRESSION: Moderate sleep apnea/hypopnea corrected with CPAP 11 cm of water pressure ResMed F10 full facemask size small. RECOMMENDATIONS: The patient should be seen back in followup to start on treatment with CPAP with compliance and effectiveness data in 90 days after institution with CPAP. ZEINAB
== END | disposition home or self-care (01) ==
LOC: C.NEUR 20:00
PROVIDERS: ATTEND Physician Assistant Medical
DX: G47.30 Sleep apnea, unspecified (principal)

== ENCOUNTER → 2017-03-17 | Outpatient (CLI) | payer OTHER ==
[2017-03-17 13:40] LABS: URIC ACID 7.9 mg/dl (2.6-7.2)
== END | disposition home or self-care (01) ==
LOC: C.LABBFT 09:55
PROVIDERS: ATTEND Internal Medicine
DX: E55.9 Vitamin D deficiency, unspecified (principal); M10.9 Gout, unspecified; R77.1 Abnormality of globulin; E03.9 Hypothyroidism, unspecified

== ENCOUNTER → 2017-04-03 | Outpatient (CLI) | payer OTHER ==
[2017-04-03 12:35] LABS: ALBUMIN 3.5 gm/dl (3.4-5.0); ALKALINE PHOSPHATASE 68 U/L (45-117); ALT/SGPT 22 U/L (12-78); AST/SGOT 17 U/L (15-37); BLOOD UREA NITROGEN 22 mg/dl (7-18); CALCIUM 9.1 mg/dl (8.5-10.1); CARBON DIOXIDE 28 mmol/L (21-32); CREATININE 1.03 mg/dl (0.60-1.20); GLUCOSE 100 mg/dl (70-99); POTASSIUM 4.3 mmol/L (3.5-5.1); SODIUM 140 mmol/L (136-145)
[2017-04-03 12:36] LABS: PHOSPHORUS 3.3 mg/dl (2.5-4.9); TOTAL PROTEIN 7.8 gm/dl (6.4-8.2)
== END | disposition home or self-care (01) ==
LOC: C.LABBFT 09:37
PROVIDERS: ATTEND Physician Assistant Medical
DX: R79.9 Abnormal finding of blood chemistry, unspecified (principal)

== ENCOUNTER → 2017-04-09 | Outpatient (CLI) | payer OTHER ==
--- NOTE | 2017-04-09 15:18 | MAMMOGRAPHY REPORT ---
BILATERAL DIGITAL SCREENING MAMMOGRAM TOMOSYNTHESIS WITH CAD: 04/09/2017 CLINICAL HISTORY: Routine screening. Patient has no complaints. TECHNIQUE: Breast tomosynthesis in addition to standard 2D mammography was performed. Current study was also evaluated with a Computer Aided Detection (CAD) system. COMPARISON: Comparison is made to exams dated: 04/08/2016 mammogram, 04/03/2015 mammogram, 03/31/2014 m ammogram, 03/28/2013 mammogram, 03/26/2012 mammogram, and 03/25/2011 mammogram - [facility] enter. BREAST COMPOSITION: The tissue of both breasts is heterogeneously dense, which may obscure small mas ses. FINDINGS: No suspicious masses, calcifications, or areas of architectural distortion are noted in ei ther breast. There has been no significant interval change compared to prior exams. IMPRESSION: ACR BI-RADS CATEGORY 1: NEGATIVE There is no mammographic evidence of malignancy. A 1 year screening mammogram is recommended. The pa tient will receive written notification of the results. Approximately 10% of breast cancers are not detected with mammography. A negative mammographic report should not delay biopsy if a clinically suggestive mass is present. Tori Abad M.D. ah/:04/09/2017 12:33:28 Cutter Helper: Nuha JOAQUIN(Radha)(M), [facility] letter sent: Normal 1/2 BI-RADS Code: ACR BI-RADS Category 1: Negative
== END | disposition home or self-care (01) ==
LOC: C.MAMM 08:41
PROVIDERS: ATTEND Internal Medicine
DX: Z12.31 Encounter for screening mammogram for malignant neoplasm of breast (principal)

== ENCOUNTER → 2017-04-16 | Outpatient (CLI) | payer OTHER | END | disposition home or self-care (01) | LOC: C.MAMM 10:39 | PROVIDERS: ATTEND Internal Medicine | DX: M81.0 Age-related osteoporosis without current pathological fracture (principal); M85.88 Other specified disorders of bone density and structure, other site ==

== ENCOUNTER → 2017-06-08 | Outpatient (CLI) | payer OTHER ==
[~2017-06-08] MED LIST changes: +LISI30TA3 PO; -LSNP/30 PO
== END | disposition home or self-care (01) ==
LOC: C.LABBFT 15:07
PROVIDERS: ATTEND Nurse Practitioner
DX: E03.9 Hypothyroidism, unspecified (principal)

== ENCOUNTER → 2017-09-03 | Outpatient (CLI) | payer OTHER ==
[~2017-09-03] MED LIST changes: +ALL100 PO; +ANT25 PO; -CLC6 PO; -CLON0.1T12 PO; +CRS/10 PO; +CTP1CL PO; +CYAN100020 PO; -FENO145T26 PO; -GABA-113 PO; +GABA-1219 PO; +HYDR25TA5 PO; +INDO-22 PO; -MECL1TAB42 PO; +METF500T5 PO; -MONT1TAB3 PO; -PANT1TAB3 PO; +PANT40TA2 PO; +RQP25 PO; +SNG10 PO
[2017-09-03 10:03] LABS: BLOOD UREA NITROGEN 20 mg/dl (7-18); CALCIUM 9.3 mg/dl (8.5-10.1); CARBON DIOXIDE 24 mmol/L (21-32); CREATININE 0.99 mg/dl (0.60-1.20); GLUCOSE 108 mg/dl (70-99); POTASSIUM 4.1 mmol/L (3.5-5.1); SODIUM 139 mmol/L (136-145)
--- NOTE | 2017-09-16 12:25 | CODING QUERY NO DIAGNOSIS ---
TREATMENT RENDERED WITHOUT A DIAGNOSIS To promote full compliance with coding requirements relating to patient care, physician participation is requested in all cases of medical biller coder uncertainty. Please assist us with providing a diagnosis/symptom for the test(s) below: A diagnosis/symptom was not documented on your Order. A valid diagnosis/symptom is required to bill all insurances. Please remember that we are unable to code a diagnosis of rule out, probable, possible, questionable, or suspected. Tests that require a diagnosis: DOS: 09/03/17 * PARTIAL RENAL PROFILE DIAGNOSIS: Provider Signature: Date: Thank you Ana Cornejo [employer] Once completed, please kindly fax back to [phone] For questions please call [phone]
== END | disposition home or self-care (01) ==
LOC: C.LAB 06:52
PROVIDERS: ATTEND Internal Medicine Interventional Cardiology
DX: Z01.89 Encounter for other specified special examinations (principal)

== ENCOUNTER → 2017-09-07 | Outpatient (CLI) | payer OTHER ==
--- NOTE | 2017-09-07 19:19 | DIAGNOSTIC IMAGING REPORT ---
THREE-PHASE NUCLEAR BONE SCAN OF THE HANDS; WHOLE BODY BONE SCAN CLINICAL HISTORY: Arthritis of the hands. COMPARISON STUDY: Radiographs of the wrists dated 02/23/2015. TECHNIQUE: Following the IV administration of 26.6 mCi of technetium 99m MDP, three-phase bone scan of the hands was performed. Anterior and posterior flow and blood pool phase images of the hands were acquired. Bone phase imaging of of the hands was performed at three hours in multiple obliquities. Whole body imaging was also performed at 3 hours in the anterior and posterior projections. FINDINGS: There is no hyperemia identified within the wrists or hands on the flow and blood flow phase images. No significant abnormal tracer the position is identified throughout the wrists or hands on the bone phase imaging. There is no abnormal osseous tracer deposition identified typical in appearance for bony metastatic disease on the whole body images. Typically degenerative uptake is identified in the shoulders, knees, and ankles. There is expected excreted activity within the renal collecting system and bladder. Urine contamination is noted in the groin. IMPRESSION: 1. Three-phase negative bone scan of the wrists and hands. 2. No abnormal bone phase activity is identified in the hands. 3. Foci of typically degenerative change are seen on the whole body images as above. Electronically signed by: Agustin Elder M.D. 09/07/2017 7:18 PM Dictated Date/Time: 09/07/2017 7:13 PM
== END | disposition home or self-care (01) ==
LOC: C.NUCL 12:37
PROVIDERS: ATTEND Physical Medicine & Rehabilitation Sports Medicine
DX: M13.841 Other specified arthritis, right hand (principal); M19.042 Primary osteoarthritis, left hand

== ENCOUNTER 2020-11-14 09:04 | Observation (INO) ==
[2020-11-14] MEDS ORDERED: diphenhydrAMINE 50 MG/ML VIAL IV STA (09:43)
[2020-11-14] MEDS ORDERED: HYDROmorphone INJ 0.5 MG/0.5 ML SYR IV STA (09:43)
--- NOTE | 2020-11-14 09:50 | Emergency Department Note ---
History of Present Illness General Chief complaint: Back Injury/Pain Stated complaint: L LEG & HIP PAIN Time Seen by Provider: 11/14/20 09:28 Source: patient and family (Daughter who is at the bedside) Mode of arrival: EMS Limitations: no limitations History of Present Illness Maximum Pain Intensity: 10 This patient is a 65-year-old female who has back pain since around September that radiates down her left leg. She has had issues with chronic pain she is had no recent fall she is had no change in bowel or bladder function feels tingling in her leg which is not new. She had the Covid vaccine. No fever or chills. No chest pain or shortness of breath. She saw Dr. Amin today we did an MRI at [facility]. 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 He sent her to the ER for urgent surgical evaluation. Home Medications Medication Instructions Recorded Confirmed Type cholecalciferol (vitamin D3) 25 1,000 unit PO QAM 01/28/18 11/14/20 History mcg (1,000 unit) capsule (Vitamin D3) lisinopril 30 mg tablet 30 mg PO QAM #90 tab 11/08/19 11/14/20 Rx montelukast 10 mg tablet 10 mg PO HS #90 tab 12/28/19 11/14/20 Rx mirtazapine 7.5 mg tablet 7.5 mg PO HS #90 tab 02/07/20 11/14/20 Rx dexlansoprazole 60 mg 60 mg PO QAM PRN 03/19/20 11/14/20 History capsule,biphase delayed release (Dexilant) diphenhydramine HCl 25 mg capsule 25 mg PO HS 06/23/20 11/14/20 History (Benadryl) lidocaine 5 % topical patch 1 patch TOP DAILY PRN #15 ea 06/23/20 11/14/20 Rx rosuvastatin 20 mg tablet 20 mg PO HS #90 tab 09/03/20 11/14/20 Rx ropinirole 0.25 mg tablet 1 mg PO HS #120 tab 09/14/20 11/14/20 Rx penciclovir 1 % topical cream 1 applic TOPICAL Q2H 4 Days #5 g 09/28/20 11/14/20 Rx (Denavir) allopurinol 100 mg tablet 100 mg PO QAM 10/10/20 11/14/20 History clotrimazole-betamethasone 1 1 applic TOPICAL BID 10/10/20 11/14/20 History %-0.05 % topical cream diltiazem HCl 240 mg capsule,24 240 mg PO QAM 10/10/20 11/14/20 History hr,extended release (Tiadylt ER) glimepiride 2 mg tablet 2 mg PO QAM 10/10/20 11/14/20 History levothyroxine 100 mcg tablet 100 mcg PO QAM 10/10/20 11/14/20 History (Euthyrox) meloxicam 15 mg tablet 15 mg PO QAM 10/10/20 11/14/20 History oxybutynin chloride 15 mg 15 mg PO QAM 10/10/20 11/14/20 History tablet,extended release 24 hr pregabalin 150 mg capsule 150 mg PO TID #90 cap 11/06/20 11/14/20 Rx oxycodone 5 mg tablet 5 mg PO Q6H PRN #10 tab 11/09/20 11/14/20 Rx duloxetine 30 mg capsule,delayed 60 mg PO QAM #60 cap 11/13/20 11/14/20 Rx release acetaminophen 500 mg capsule 1,000 mg PO Q6H PRN 11/14/20 11/14/20 History ibuprofen 200 mg tablet 400 mg PO Q6H PRN 11/14/20 11/14/20 History Allergies Allergy/AdvReac Type Severity Reaction Status Date / Time ketorolac [From Toradol] Allergy Severe throat Verified 11/14/20 12:06 swelling morphine Allergy Mild severe Verified 11/14/20 12:06 back pain, stomach pain propoxyphene Allergy Mild itchy,RASH Verified 11/14/20 12:06 hydrocodone AdvReac Mild ITCH Verified 11/14/20 12:06 hydromorphone AdvReac Mild itchy Verified 11/14/20 12:06 oxycodone AdvReac Mild itchy Verified 11/14/20 12:06 tramadol AdvReac Mild ITCH Verified 11/14/20 12:06 acetaminophen AdvReac Unknown PT NOT Verified 11/14/20 12:06 [From Kia-Loren] SUPPOSED TO TAKE DUE TO LIVER ISSUES Past Med/Surg History Medical History Anemia CAD (coronary artery disease) Carpal tunnel syndrome Chronic back pain GETS INJECTIONS Congestive heart failure, unspecified (02/21/12) Depression Diabetes mellitus, type 2 niddm Enlarged liver Fibromyalgia GERD (gastroesophageal reflux disease) Goiter, unspecified (02/21/12) Gout Hyperlipidemia Hypertension Hypothyroidism Intestinal infection due to Clostridium difficile (02/21/12) Lymphedema Morbid obesity with BMI of 40.0-44.9, adult Osteoarthritis Restless leg syndrome Sacroiliitis, not elsewhere classified (02/21/12) Sinusitis Sleep apnea cpap (non-compliant) SOB (shortness of breath) on exertion Spinal stenosis Temporomandibular joint disorder HX RIGHT SIDE-S/P PT/IMPROVED Urinary incontinence Vitamin D deficiency Surgical History History of appendectomy History of cardiac cath 09/01/[address] [facility] by Dr. Russo--follows with Trever Andrade History of carpal tunnel release right hand History of section x2 History of cholecystectomy History of colonoscopy History of dilatation and curettage History of esophagogastroduodenoscopy (EGD) History of tooth extraction wisdom teeth History of total abdominal hysterectomy and bilateral salpingo-oophorectomy S/P epidural steroid injection Status post right foot surgery Family History Father Family history of diabetes mellitus Myocardial infarction Diabetes Lung cancer Lung disease Grandmother (Maternal) Family hx of colon cancer Mother Hypertension Kidney disease Other Colorectal cancer Denies family history of Ovarian cancer Prostate cancer Breast cancer Social History Smoking Status: Never smoker Second Hand Exposure: Yes; Hx Alcohol Use: Yes Alcohol type: hard liquor Alcohol Intake Frequency: Monthly or Less Hx Substance Use: No Preferred Language: Gabonese Communication Ability: Effective Visual Impairment: Limited Hearing Ability: Hard of Hearing Project Management Specialist Required: No Beliefs That Will Affect Care: None marital status: Current Living Situation: Family Current Living Situation Comment: cares for elderly mother current occupational status: retired current occupation: used to work multiple jobs Feels Safe at Home: Yes Childhood Exposure to Second-Hand Smoke: Yes caffeine: Yes during the past year weight has: remained stable Dental Care, Regularly: No Physical Activity Frequency: Does not Exercise Seatbelt Use: always Sunscreen Use: No Assistive Devices: Glasses Review of Systems A total of 10 systems reviewed and were otherwise negative Physical Exam Vital Signs Vital Signs - 24 hr 11/14/20 09:15 Temperature 36.8 C Temperature Source Oral Pulse Rate 86 Respiratory Rate 20 Respiratory Effort / Characteristics Non-Labored Spontaneous Respiratory Depth Normal Respiratory Pattern Regular Blood Pressure 151/100 H Blood Pressure Mean 117 Blood Pressure Position Lying Pulse Oximetry 98 Oxygen Delivery Method Room Air Sepsis Recent Fever Within 48 Hours No Sepsis New/Unexplained Change in Mental Status N/A Sepsis Action Taken by Nursing No Action Required General: Well developed well nourished older female who appears uncomfortable in no acute distress, breathing comfortably on room air. Normal speech HEENT: Normal cephalic atraumatic. Pupils are equal round and reactive to light. Extraocular movements are intact. Oropharynx is pink with moist mucous membranes. No swelling of the mouth lips or tongue. Neck: Supple with a midline trachea. No meningeal signs or stiffness, no JVD or bruits. No Stridor. Chest: Clear to auscultation bilaterally. No wheezes or rhonchi. No increased work of breathing. Heart: Regular rate and rhythm without murmurs or gallops. Abdomen: Soft nontender, nondistended without rebound guarding or rigidity. Extremities: No cyanosis clubbing or edema. No calf tenderness or assymetry Spine/Back. He is tender to palpation in the left SI joint area. No CVA tenderness Skin: Good turgor without rashes. Neurologic exam: Cranial nerves two through 12 are intact. Motor and sensation are intact and symmetrical throughout. Course Administered Medications Diazepam (Diazepam 5 Mg Tablet) 5 mg PO Q8 JERILYN Stop: 12/14/20 13:59 Last Admin: 11/14/20 15:23 Dose: 5 mg Documented by: [id number] Hydromorphone HCl (Hydromorphone Inj 0.5 Mg/0.5 Ml Syr) 0.5 mg IV Q3H PRN PRN Reason: MOD pain (scale 4-6) & Pre PT Stop: 11/28/20 10:39 Last Admin: 11/14/20 15:23 Dose: 0.5 mg Documented by: [id number] Lactated Ringer's (Lr) 1,000 mls @ 75 mls/hr IV .[id number] JERILYN Stop: 12/14/20 10:44 Last Admin: 11/14/20 15:24 Dose: 75 mls/hr Documented by: [id number] Pregabalin (Pregabalin 150 Mg Cap) 150 mg PO TID JERILYN Stop: 12/14/20 14:01 Last Admin: 11/14/20 15:23 Dose: 150 mg Documented by: [id number] Discontinued Medications Diphenhydramine HCl (Diphenhydramine 50 Mg/Ml Vial) 25 mg IV NOW STA Stop: 11/14/20 09:44 Last Admin: 11/14/20 10:49 Dose: 25 mg Documented by: [id number] Hydromorphone HCl (Hydromorphone Inj 0.5 Mg/0.5 Ml Syr) 0.5 mg IV NOW STA Stop: 11/14/20 09:44 Last Admin: 11/14/20 10:49 Dose: 0.5 mg Documented by: [id number] Medical Decision Making Differential Diagnosis Sciatica, spinal disease, intractable pain, infection, Covid, electrolyte or metabolic abnormality, UTI Medical Records Attestation: I reviewed the patient's medical records. Home Medications Current Medication List: was personally reviewed by me Laboratory Data Attestation: I reviewed the patient's lab results. Result diagrams: 11/14/20 10:45 11/14/20 10:45 Lab Results 11/14/20 Range/Units 09:52 Urine Color Yellow Urine Appearance Clear (Clear) Urine pH 6.5 (4.5-7.5) Ur Specific [place] 1.015 (1.000-1.030) Urine Protein Negative (Negative) Urine Glucose (UA) Trace H (Negative) Urine Ketones Negative (Negative) Urine Blood Negative (Negative) Urine Nitrite Negative (Negative) Urine Bilirubin Negative (Negative) Urine Urobilinogen Negative (Negative) Ur Leukocyte Esterase Negative (Negative) MDM Narrative This patient comes in as described above she had an MRI which showed severe stenosis involving the left fifth neuroforamen which is consistent with her symptoms. She has a lot of sensitivities to medication and I reviewed her chart she did receive Dilaudid with Benadryl 25 mg IV as well as a 0.5 mg of Dil audid. Blood work was obtained I did contact Dr. Gomez. Last time she was here with out issues. IV access was established and blood work was obtained. She has no significant electrolyte or metabolic abnormalities. Her white count is elevated but I do not find any source of infection. Urinalysis is pending. I did discuss case with Dr. Gomez and his PA came and saw the patient in the ER and has written admission orders are going to admit her and take her to the operating room for operative care of her sciatica Impression & Plan Intractable low back pain, Sciatica, DDD (degenerative disc disease), lumbar, Lab test negative for COVID-19 virus Discharge Plan Visit Data Chief Complaint: Back Injury/Pain Stated Complaint: L LEG & HIP PAIN ED Provider: Krishna Collins Discharge Problem: Intractable low back pain, Sciatica, DDD (degenerative disc disease), lumbar, Lab test negative for COVID-19 virus Patient Disposition: Admitted As Inpatient Discharge Instructions Interventions: ED Discharge Assessment Last Done: 11/14/20 13:21 Discharge Problem: Sciatica Qualifiers: Laterality: left Qualified Code(s): M54.32 - Sciatica, left side
[2020-11-14 10:08] LABS: Appearance Urine Clear (Clear); Bilirubin Urine Negative (Negative); Blood Urine Negative (Negative); Color Urine Yellow; Glucose Urine UA Trace (Negative); Ketones Urine Negative (Negative); Leukocyte Esterase Urine Negative (Negative); Nitrite Urine Negative (Negative); Protein Urine Negative (Negative); Specific Gravity Urine 1.015 (1.000-1.030); Urobilinogen Urine Negative (Negative); pH Urine 6.5 (4.5-7.5)
[2020-11-14] MEDS ORDERED: diphenhydrAMINE Capsule 25 MG CAP PO PRN (10:40)
[2020-11-14] MEDS ORDERED: ACETAMINOPHEN 1,000 MG/100 ML VIAL IV PRN (10:40)
[2020-11-14] MEDS ORDERED: NALOXONE HCL 0.4 MG/1 ML VIAL/CARP IV PRN (10:40)
[2020-11-14] MEDS ORDERED: LORazepam 0.5 MG/1 ML VIAL IV PRN (10:40)
[2020-11-14] MEDS ORDERED: oxyCODONE HCL IR 5 MG TAB (IMMEDIATE RELEASE) PO PRN (10:40)
[2020-11-14] MEDS ORDERED: ONDANSETRON 4 MG OD TAB PO PRN (10:40)
[2020-11-14] MEDS ORDERED: ACETAMINOPHEN 500 MG TAB PO PRN (10:40)
[2020-11-14] MEDS ORDERED: METOCLOPRAMIDE HCL INJ 5 MG/ML 2 ML VIAL IV PRN (10:40)
[2020-11-14] MEDS ORDERED: PHARMACY GLYCEMIC MGMT CONSULT PRN (10:40)
[2020-11-14] MEDS ORDERED: PROMETHAZINE HCL 12.5 MG in SODIUM CHLORIDE 0.9% 50 ML IV PRN (10:40)
[2020-11-14] MEDS ORDERED: ONDANSETRON INJ 2 MG/ML 2 ML VIAL IV PRN (10:40)
--- NOTE | 2020-11-14 10:40 | History & Physical Report ---
Date of Service November 14, 2020 Assessment & Plan (1) Sciatica: Plan: Patient has an acute L5-S1 left far lateral disc herniation diagnosed on MRI performed at [facility] this morning. This coincides with her current pain pattern. Options have been reviewed including conservative management versus ultimate surgical fixation. Surgery would require posterior lumbar decompression and instrumented fusion including possible interbody cage L5-S1. Risk, benefits, pros cons and trazodone detail. These include but not limited to anesthesia, blindness, stroke, paralysis, chronic numbing, hardware failure, nonunion, adjacent level disease, DVT/PE, wound infection requiring reoperation. Patient like to proceed with above-mentioned surgical planning as soon as possible. History of Present Illness Chief Complaint: Severe back and left lower extremity pain Primary Care Provider: Maxim Renee MD Is a pleasant 65-year-old female with a history of chronic back and "sciatic pain. This has been managed over the years with conservative treatment including pain management injections by Dr. Watkins. More recently her pain changed over the past week. It has been quite uncontrollable. She was in the ER a few days ago for above-mentioned complaints. This morning she underwent an MRI with follow-up with Dr. Watkins for pain management who then called an ambulance and referred her here for further evaluation. Pain is band across the lumbar spine down the left leg, no specific pattern. Right lower extremities asymptomatic. Denies bowel or bladder changes. She states for the past week the pain has been so severe she is requiring a walker for ambulation at home. She has been taking Tylenol, ibuprofen and oxycodone with Benadryl for pain control over the past week. Allergies Allergy/AdvReac Type Severity Reaction Status Date / Time ketorolac [From Toradol] Allergy Severe throat Verified 11/14/20 12:06 swelling morphine Allergy Mild severe Verified 11/14/20 12:06 back pain, stomach pain propoxyphene Allergy Mild itchy,RASH Verified 11/14/20 12:06 hydrocodone AdvReac Mild ITCH Verified 11/14/20 12:06 hydromorphone AdvReac Mild itchy Verified 11/14/20 12:06 oxycodone AdvReac Mild itchy Verified 11/14/20 12:06 tramadol AdvReac Mild ITCH Verified 11/14/20 12:06 acetaminophen AdvReac Unknown PT NOT Verified 11/14/20 12:06 [From Beau] SUPPOSED TO TAKE DUE TO LIVER ISSUES Home Medications Medication Instructions Recorded Confirmed Type cholecalciferol (vitamin D3) 25 1,000 unit PO QAM 01/28/18 11/14/20 History mcg (1,000 unit) capsule (Vitamin D3) lisinopril 30 mg tablet 30 mg PO QAM #90 tab 11/08/19 11/14/20 Rx montelukast 10 mg tablet 10 mg PO HS #90 tab 12/28/19 11/14/20 Rx mirtazapine 7.5 mg tablet 7.5 mg PO HS #90 tab 02/07/20 11/14/20 Rx dexlansoprazole 60 mg 60 mg PO QAM PRN 03/19/20 11/14/20 History capsule,biphase delayed release (Dexilant) diphenhydramine HCl 25 mg capsule 25 mg PO HS 06/23/20 11/14/20 History (Benadryl) lidocaine 5 % topical patch 1 patch TOP DAILY PRN #15 ea 06/23/20 11/14/20 Rx rosuvastatin 20 mg tablet 20 mg PO HS #90 tab 09/03/20 11/14/20 Rx ropinirole 0.25 mg tablet 1 mg PO HS #120 tab 09/14/20 11/14/20 Rx penciclovir 1 % topical cream 1 applic TOPICAL Q2H 4 Days #5 g 09/28/20 11/14/20 Rx (Denavir) allopurinol 100 mg tablet 100 mg PO QAM 10/10/20 11/14/20 History clotrimazole-betamethasone 1 1 applic TOPICAL BID 10/10/20 11/14/20 History %-0.05 % topical cream diltiazem HCl 240 mg capsule,24 240 mg PO QAM 10/10/20 11/14/20 History hr,extended release (Tiadylt ER) glimepiride 2 mg tablet 2 mg PO QAM 10/10/20 11/14/20 History levothyroxine 100 mcg tablet 100 mcg PO QAM 10/10/20 11/14/20 History (Euthyrox) meloxicam 15 mg tablet 15 mg PO QAM 10/10/20 11/14/20 History oxybutynin chloride 15 mg 15 mg PO QAM 10/10/20 11/14/20 History tablet,extended release 24 hr pregabalin 150 mg capsule 150 mg PO TID #90 cap 11/06/20 11/14/20 Rx oxycodone 5 mg tablet 5 mg PO Q6H PRN #10 tab 11/09/20 11/14/20 Rx duloxetine 30 mg capsule,delayed 60 mg PO QAM #60 cap 11/13/20 11/14/20 Rx release acetaminophen 500 mg capsule 1,000 mg PO Q6H PRN 11/14/20 11/14/20 History ibuprofen 200 mg tablet 400 mg PO Q6H PRN 11/14/20 11/14/20 History Past Med/Surg History Medical History Anemia CAD (coronary artery disease) Carpal tunnel syndrome Chronic back pain GETS INJECTIONS Congestive heart failure, unspecified (02/21/12) Depression Diabetes mellitus, type 2 niddm Enlarged liver Fibromyalgia GERD (gastroesophageal reflux disease) Goiter, unspecified (02/21/12) Gout Hyperlipidemia Hypertension Hypothyroidism Intestinal infection due to Clostridium difficile (02/21/12) Lymphedema Morbid obesity with BMI of 40.0-44.9, adult Osteoarthritis Restless leg syndrome Sacroiliitis, not elsewhere classified (02/21/12) Sinusitis Sleep apnea cpap (non-compliant) SOB (shortness of breath) on exertion Spinal stenosis Temporomandibular joint disorder HX RIGHT SIDE-S/P PT/IMPROVED Urinary incontinence Vitamin D deficiency Surgical History History of appendectomy History of cardiac cath 09/01/2017 @ [facility] by Dr. Russo--follows with Trever Andrade History of carpal tunnel release right hand History of section x2 History of cholecystectomy History of colonoscopy History of dilatation and curettage History of esophagogastroduodenoscopy (EGD) History of tooth extraction wisdom teeth History of total abdominal hysterectomy and bilateral salpingo-oophorectomy S/P epidural steroid injection Status post right foot surgery Family History Father Family history of diabetes mellitus Myocardial infarction Diabetes Lung cancer Lung disease Grandmother (Maternal) Family hx of colon cancer Mother Hypertension Kidney disease Other Colorectal cancer Denies family history of Ovarian cancer Prostate cancer Breast cancer Social History Smoking Status: Never smoker Second Hand Exposure: Yes; Hx Alcohol Use: Yes Alcohol type: hard liquor Alcohol Intake Frequency: Monthly or Less Hx Substance Use: No Preferred Language: Upper Sorbian Communication Ability: Effective Visual Impairment: Limited Hearing Ability: Hard of Hearing Program Consultant Required: No Beliefs That Will Affect Care: None marital status: Current Living Situation: Family Current Living Situation Comment: cares for elderly mother current occupational status: retired current occupation: used to work multiple jobs Feels Safe at Home: Yes Childhood Exposure to Second-Hand Smoke: Yes caffeine: Yes during the past year weight has: remained stable Dental Care, Regularly: No Physical Activity Frequency: Does not Exercise Seatbelt Use: always Sunscreen Use: No Assistive Devices: Glasses and Walker Review of Systems Review of Systems: All systems reviewed & are unremarkable except as noted in HPI & below Physical Exam Physical Exam: She is seen in the ED room C8. Seen in conjunction with her daughter. Alert and oriented x3 Acutely uncomfortable switching positions multiple times during our exam Constitutional: WD/WN, vitals as above Eyes: normal visual roblero by confrontation ENMT: external ear and nose normal, oropharynx normal Neck: normal visual inspection Respiratory: normal respiratory effort Cardiovascular: Extremities: normal capillary refill Gastrointestinal (Abdomen): Inspection/Auscultation: abdomen normal to inspection Musculoskeletal: Extremities: extremities normal to inspection She has breakaway weakness to motor testing in the left lower extremity specifically with EHL, dorsiflexion. She has positive tension sign on the left. Positive contralateral straight leg raise. Skin: no rashes, warm and dry Neurologic: moves all extremities Psychiatric: A+Ox3, euthymic affect Results & Data Results & Data ([facility]) Vital Signs (Past 12 Hours) Vital Signs Temp Pulse Resp BP Pulse Ox 11/14/20 09:15 36.8 C 86 20 151/100 H 98
[2020-11-14 11:08] LABS: Basophils # (auto) 0.02 K/uL (0-0.2); Basophils % (auto) 0.1 %; Eosinophils # (auto) 0.06 K/uL (0-0.5); Eosinophils % (auto) 0.4 %; Hematocrit (blood only) 41.4 % (37-47); Immature Granulocytes # (auto) 0.05 K/uL (0.00-0.02); Immature Granulocytes % (auto) 0.3 %; Lymphocytes # (auto) 2.25 K/uL (1.2-3.4); Lymphocytes % (auto) 14.7 %; Mean Corpuscular Hemoglobin 32.1 pg (25-34); Mean Corpuscular Hgb Conc 33.8 g/dL (32-36); Mean Platelet Volume 11.4 fL (7.4-10.4); Monocytes # (auto) 0.82 K/uL (0.11-0.59); Monocytes % (auto) 5.4 %; Neutrophils # (auto) 12.08 K/uL (1.4-6.5); Neutrophils % (auto) 79.1 %; Platelet Count 259 K/uL (130-400); RDW Standard Deviation 48.8 fL (36.4-46.3); Red Blood Count 4.36 M/uL (4.2-5.4); White Blood Count 15.28 K/uL (4.8-10.8)
--- NOTE | 2020-11-14 11:10 | Hospitalist Consultation ---
Date of Consultation November 14, 2020 Assessment & Plan (1) Sciatica: Primary management per Orthopedics - Pain control defer to primary team - MRI reported with L5-S1 disc herniation complicating the above - VTE/SCDS per primary team - ECG done - CXR pending (2) Hypertension: Appears majority of her BP as outpatient are 140 or less - Continue Diltiazem 240 mg PO qam - Continue with Lisinopril 30 Qam- Recommend holding 24 hours post surgery e valuate renal function and euvolemia (3) CAD (coronary artery disease): Non-occlusive disease - CARDIAC CATHETERIZATION 09/01/2017: -- LMCA -- Normal. -- LAD -- Luminal irregularities in the midvessel. -- LCx -- Normal. -- RCA -- Dominant vessel, 20% ostial stenosis, distal luminal irregularities. -- Medical Management Recommended. As above- Continue Rosuvastatin 20mg Po daily ECG is at baseline and no worsening or changing symptoms regading her dyspnea - ECHO- evaluate valve function and WMA (4) Heart murmur: Not sure of onset- not documented in prior notes - would recommend ECHO to evaluate with her non-compliance with CPAP, evaluate Wall motion for any abnormalities (5) Hyperlipidemia: As above - previous lipid panel within goals (6) Severe sleep apnea: Not compliant with CPAP at home - states she has not worn it for years and sent machine back - Follow in house - Would recommend SPO2 monitoring and/or EtCO2 monitoring with increased use of narcotics and sedatives - Will order CPAP at bedside for use (7) Restless leg syndrome: Continue pre-gablin, ropinirole, continue mirtazipine (8) Diabetes mellitus, type 2: Change to sliding scale insulin aspart - will hold on adding carb coverage. Follow add on if needed - Goal <180 (9) GERD (gastroesophageal reflux disease): Continue dexolant or equivalnet (10) Hypothyroidism: Continue Synthroid dosing 100mcg Po Qam (11) Leukocytosis: WBC 15.28 with NLR 6:1 - stress response likely vs. demanganization if she received steroids recently - No fevers no WBC - no cough or sputum production - awaiting CXR for review - urine without acute - no skin areas of concern on physical exam Supervising Physician Co-Signing Physician Notes Attending addendum: I have physically seen this patient, have supervised the NICOLE's activities, and agree with the H&P unless as otherwise noted. Assessment and Plan: Sciatica/L5-S1 disc herniation- Pain control and DVT prophylaxis per orthopedic team CAD/hypertension- Continue diltiazem 240 mg every morning and lisinopril 30 mg every morning with hold parameters Complete echocardiogram to assess valve function and wall motion due to new heart murmur Hyperlipidemia- Continue simvastatin 20 mg daily Remaining orders and notations as noted History of Present Illness Reason for Consultation: Pre-operative medical assessment Requesting Physician: [facility] Juliet Dodson History of Present Illness 65 YOF with past medical history of: HTN, HLD, Hypothyroidism, Sciatica, DM2(not on insulin), Peripheral Neuropathy, SHAN (non-complaint with CPAP), Morbid obesity, chronic pain/fibromyalgia, COVID 28 JAN 2020, and IgG lambda monoclonal gammopathy(2004)- follows with Dr. Leal for screening, and Cardiac Syndrome X(exertional angina pectoris secondary to small vessel disease). Patient has low activity levels at baseline. She is able to perform ADLS at home and go up approximately 6-8 steps before she has to stop and take a break secondary to dyspnea. She rests for a few minutes and is able to continue, this is also associated with a headache, this has been consistent in her symptoms and documentation since 2019. She does not have any chest pain or anginal symptoms. From review of records this has been consistent from her follow ups with cardiology. The patient had a cardiac cath done in 2017, and stress ECHO in 2016 with reaching 95% of MPHR with normal LV function and wall motion, she does not have any evidence of heart failure on physical exam. She has endorsed weight gain secondary to sedentary lifestyle with COVID, and sciatic back pain limiting her functionality. The patient is non-compliant with her CPAP and has not worn it for many years. She does exhibit soft systolic murmur best heard at left midaxillary line. Her blood pressure as outpatient review appears decently controlled with most of her readings <140. Expect her elevation today is secondary to her pain. She is on appropriate medications for her heart disease and diabetes. HGB A1c in August 6.8%, TSH in August was 2.18, LDL 81. Patient was sent to the EMD today for acute sciatic back pain which she was seen in the ER on 11/09/20 for she had an MRI done on November 14 that was reviewed today with Dr. Watkins- consistent with L5-S1 lateral disc herniation. She had been following with conservative treatment options to include, therapy, medications, injections and continues to have difficulty with ambulation and using walker at home. Orthopaedics has admitted the patient for surgical evaluation. The patient has a revised cardiac risk score of 0.4% risk for myocardial infarction/cardiac arrest and a Hanson perioperative risk score of 0.63% estimated risk or probability for NC or cardiac arrest of 0.63%. Patient has had COVID in the past and her COVID test on admission is: NEGATIVE Allergies Allergy/AdvReac Type Severity Reaction Status Date / Time ketorolac [From Toradol] Allergy Severe throat Verified 11/14/20 12:06 swelling morphine Allergy Mild severe Verified 11/14/20 12:06 back pain, stomach pain propoxyphene Allergy Mild itchy,RASH Verified 11/14/20 12:06 hydrocodone AdvReac Mild ITCH Verified 11/14/20 12:06 hydromorphone AdvReac Mild itchy Verified 11/14/20 12:06 oxycodone AdvReac Mild itchy Verified 11/14/20 12:06 tramadol AdvReac Mild ITCH Verified 11/14/20 12:06 acetaminophen AdvReac Unknown PT NOT Verified 11/14/20 12:06 [From Claudiat-N] SUPPOSED TO TAKE DUE TO LIVER ISSUES Home Medications Medication Instructions Recorded Confirmed Type cholecalciferol (vitamin D3) 25 1,000 unit PO QAM 01/28/18 11/14/20 History mcg (1,000 unit) capsule (Vitamin D3) lisinopril 30 mg tablet 30 mg PO QAM #90 tab 11/08/19 11/14/20 Rx montelukast 10 mg tablet 10 mg PO HS #90 tab 12/28/19 11/14/20 Rx mirtazapine 7.5 mg tablet 7.5 mg PO HS #90 tab 02/07/20 11/14/20 Rx dexlansoprazole 60 mg 60 mg PO QAM PRN 03/19/20 11/14/20 History capsule,biphase delayed release (Dexilant) diphenhydramine HCl 25 mg capsule 25 mg PO HS 06/23/20 11/14/20 History (Benadryl) lidocaine 5 % topical patch 1 patch TOP DAILY PRN #15 ea 06/23/20 11/14/20 Rx rosuvastatin 20 mg tablet 20 mg PO HS #90 tab 09/03/20 11/14/20 Rx ropinirole 0.25 mg tablet 1 mg PO HS #120 tab 09/14/20 11/14/20 Rx penciclovir 1 % topical cream 1 applic TOPICAL Q2H 4 Days #5 g 09/28/20 11/14/20 Rx (Denavir) allopurinol 100 mg tablet 100 mg PO QAM 10/10/20 11/14/20 History clotrimazole-betamethasone 1 1 applic TOPICAL BID 10/10/20 11/14/20 History %-0.05 % topical cream diltiazem HCl 240 mg capsule,24 240 mg PO QAM 10/10/20 11/14/20 History hr,extended release (Tiadylt ER) glimepiride 2 mg tablet 2 mg PO QAM 10/10/20 11/14/20 History levothyroxine 100 mcg tablet 100 mcg PO QAM 10/10/20 11/14/20 History (Euthyrox) meloxicam 15 mg tablet 15 mg PO QAM 10/10/20 11/14/20 History oxybutynin chloride 15 mg 15 mg PO QAM 10/10/20 11/14/20 History tablet,extended release 24 hr pregabalin 150 mg capsule 150 mg PO TID #90 cap 11/06/20 11/14/20 Rx oxycodone 5 mg tablet 5 mg PO Q6H PRN #10 tab 11/09/20 11/14/20 Rx duloxetine 30 mg capsule,delayed 60 mg PO QAM #60 cap 11/13/20 11/14/20 Rx release acetaminophen 500 mg capsule 1,000 mg PO Q6H PRN 11/14/20 11/14/20 History ibuprofen 200 mg tablet 400 mg PO Q6H PRN 11/14/20 11/14/20 History Patient History Medical History Anemia CAD (coronary artery disease) Carpal tunnel syndrome Chronic back pain GETS INJECTIONS Congestive heart failure, unspecified (02/21/12) Depression Diabetes mellitus, type 2 niddm Enlarged liver Fibromyalgia GERD (gastroesophageal reflux disease) Goiter, unspecified (02/21/12) Gout Hyperlipidemia Hypertension Hypothyroidism Intestinal infection due to Clostridium difficile (02/21/12) Lymphedema Morbid obesity with BMI of 40.0-44.9, adult Osteoarthritis Restless leg syndrome Sacroiliitis, not elsewhere classified (02/21/12) Sinusitis Sleep apnea cpap (non-compliant) SOB (shortness of breath) on exertion Spinal stenosis Temporomandibular joint disorder HX RIGHT SIDE-S/P PT/IMPROVED Urinary incontinence Vitamin D deficiency Surgical History History of appendectomy History of cardiac cath 09/01/2017 @ [facility] by Dr. Russo--follows with Trever Andrade History of carpal tunnel release right hand History of section x2 History of cholecystectomy History of colonoscopy History of dilatation and curettage History of esophagogastroduodenoscopy (EGD) History of tooth extraction wisdom teeth History of total abdominal hysterectomy and bilateral salpingo-oophorectomy S/P epidural steroid injection Status post right foot surgery Family History Father Family history of diabetes mellitus Myocardial infarction Diabetes Lung cancer Lung disease Grandmother (Maternal) Family hx of colon cancer Mother Hypertension Kidney disease Other Colorectal cancer Denies family history of Ovarian cancer Prostate cancer Breast cancer Social History Smoking Status: Never smoker Second Hand Exposure: Yes; Hx Alcohol Use: Yes Alcohol type: hard liquor Alcohol Intake Frequency: Monthly or Less Hx Substance Use: No Preferred Language: Bangladeshi Communication Ability: Effective Visual Impairment: Limited Hearing Ability: Hard of Hearing Prn Physical Therapist Required: No Beliefs That Will Affect Care: None marital status: Current Living Situation: Family Current Living Situation Comment: cares for elderly mother current occupational status: retired current occupation: used to work multiple jobs Feels Safe at Home: Yes Childhood Exposure to Second-Hand Smoke: Yes caffeine: Yes during the past year weight has: remained stable Dental Care, Regularly: No Physical Activity Frequency: Does not Exercise Seatbelt Use: always Sunscreen Use: No Assistive Devices: Glasses and Walker Review of Systems Review of Systems: REVIEW OF SYSTEMS: Constitutional: No fever, sweats or chills Eyes: No diplopia, no worsening or blurred vision ENT: normal hearing, no trouble swallowing Respiratory: (+) dyspnea with exertion, No cough, sputum, dyspnea at rest Cardiovascular: No chest pain, tightness or palpitations Abdomen: No pain, nausea, vomiting, diarrhea or constipation Musculoskeletal: (+) chronic joint pain, left leg sciatic pain, NO calf pain, swelling Neurologic: (+) difficulty ambulating secondary to back pain, No weakness, numbness/tingling, or balance problems Psychiatric: No anxiety or depression Skin: No rash or itch Physical Exam Physical Exam: PHYSICAL EXAM: General: awake, alert, in pain Head: Normocephalic, atraumatic ENT: PERRLA, EOMI, no pharyngeal exudate, mucous membranes moist Neuro: AAO x 3, speech clear and appropriate, strength intact bilaterally 5/5, sensation intact and equal all extremities and dermatomes, no pronator drift Chest: equal rise and fall of the chest, no accessory muscle use, no heaves or thrills, Clear to auscultation, on room air, Cardiac: Regular rate and rhythm, telemetry reviewed- NSR, skin warm dry, cap refill <3 seconds, peripheral pulses +2 no JVD, Grade I systolic murmur, no JVD, no edema GI: NABS x 4 quadrants, softly obese, nontender to palpation, no rebound, guarding or tenderness, last BM this morning : Spontaneously voiding, no pain, no CVA tenderness, Extremities: Normal inspection, no peripheral edema or erythema, pain from left buttocks down to toes per patient, hypersensitivity to pain and palpation noted Psych: Normal mood and affect Skin: no rash or erythema Results & Data Results & Data ([facility]) Vital Signs (Past 12 Hours) Vital Signs Temp Pulse Resp BP Pulse Ox 11/14/20 10:40 95 11/14/20 09:15 36.8 C 86 20 151/100 H 98 Laboratory Results Abnormal lab results 11/14/20 11/14/20 11/14/20 Range/Units 09:52 10:45 10:45 WBC 15.28 H (4.8-10.8) K/uL RDW Std Deviation 48.8 H (36.4-46.3) fL MPV 11.4 H (7.4-10.4) fL Neut # (Auto) 12.08 H (1.4-6.5) K/uL [place] # (Auto) 0.82 H (0.11-0.59) K/uL Immature Gran # (Auto) 0.05 H (0.00-0.02) K/uL BUN 19 H (7-18) mg/dl Glucose 174 H (70-99) mg/dl Calcium 10.4 H (8.5-10.1) mg/dl AST 75 H (15-37) U/L Globulin 4.5 H (2.5-4.0) gm/dl Albumin/Globulin Ratio 0.8 L (0.9-2) Urine Glucose (UA) Trace H (Negative) Diagnostic Findings CXR is ordered by admitting service- currently not available for review Medications Administered Home Medications cholecalciferol (vitamin D3) 25 mcg (1,000 unit) capsule (Vitamin D3) 1,000 unit PO QAM 01/28/18 [History Confirmed 11/09/20] lisinopril 30 mg tablet 30 mg PO QAM #90 tab 11/08/19 [Rx Confirmed 11/09/20] montelukast 10 mg tablet 10 mg PO HS #90 tab 12/28/19 [Rx Confirmed 11/09/20] mirtazapine 7.5 mg tablet 7.5 mg PO HS #90 tab 02/07/20 [Rx Confirmed 11/09/20] dexlansoprazole 60 mg capsule,biphase delayed release (Dexilant) 60 mg PO QAM PRN 03/19/20 [History Confirmed 11/09/20] diphenhydramine HCl 25 mg capsule (Benadryl) 25 mg PO HS 06/23/20 [History Confirmed 11/09/20] lidocaine 5 % topical patch 1 patch TOP DAILY PRN #15 ea 06/23/20 [Rx Confirmed 11/09/20] rosuvastatin 20 mg tablet 20 mg PO HS #90 tab 09/03/20 [Rx Confirmed 11/09/20] ropinirole 0.25 mg tablet 1 mg PO HS #120 tab 09/14/20 [Rx Confirmed 11/09/20] penciclovir 1 % topical cream (Denavir) 1 applic TOPICAL Q2H 4 Days #5 g 09/28/20 [Rx Confirmed 11/09/20] allopurinol 100 mg tablet 100 mg PO QAM 09/01/21 [History Confirmed 11/09/20] clotrimazole-betamethasone 1 %-0.05 % topical cream 1 applic TOPICAL BID 10/10/20 [History Confirmed 11/09/20] diltiazem HCl 240 mg capsule,24 hr,extended release (Tiadylt ER) 240 mg PO QA 10/10/20 [History Confirmed 11/09/20] glimepiride 2 mg tablet 2 mg PO [facility] 10/10/20 [History Confirmed 11/09/20] levothyroxine 100 mcg tablet (Euthyrox) 100 mcg PO QA 10/10/20 [History Confirmed 11/09/20] meloxicam 15 mg tablet 15 mg PO [facility] 10/10/20 [History Confirmed 11/09/20] oxybutynin chloride 15 mg tablet,extended release 24 hr 15 mg PO [facility] 10/10/20 [History Confirmed 11/09/20] pregabalin 150 mg capsule 150 mg PO TID #90 cap 11/06/20 [Rx Confirmed 11/09/20] oxycodone 5 mg tablet 5 mg PO Q6H PRN #10 tab 11/09/20 [Rx Confirmed 11/09/20] duloxetine 30 mg capsule,delayed release 60 mg PO QA #60 cap 11/13/20 [Rx] Active Medications Acetaminophen (Acetaminophen 500 Mg Tab) 1,000 mg PO Q8H PRN PRN Reason: MILD Pain Scale 1,2,3 & Pre PT Stop: 12/14/20 10:39 Diazepam (Diazepam 5 Mg Tablet) 5 mg PO Q8 JERILYN Stop: 12/14/20 13:59 Diphenhydramine HCl (Diphenhydramine Capsule 25 Mg Cap) 25 mg PO Q6H PRN PRN Reason: Allergic Symptoms Stop: 12/14/20 10:39 Hydromorphone HCl (Hydromorphone Inj 0.5 Mg/0.5 Ml Syr) 0.5 mg IV Q3H PRN PRN Reason: MOD pain (scale 4-6) & Pre PT Stop: 11/28/20 10:39 Dexamethasone 8 mg/ Syringe 2 mls @ 1 mls/min IV Q8H JERILYN Stop: 11/15/20 02:46 Cefazolin Sodium (Ancef 2000mg) 2,000 mg in 15 mls @ 3.75 mls/min IV PREOP JERILYN; Protocol Stop: 11/16/20 05:59 Lactated Ringer's (Lr) 1,000 mls @ 75 mls/hr IV .[id number] JERILYN Stop: 12/14/20 10:44 Promethazine HCl 12.5 mg/ (Sodium Chloride) 50.5 mls @ 202 mls/hr IV Q6H PRN PRN Reason: Nausea &/or Vomiting Stop: 12/14/20 10:39 Acetaminophen (Ofirmev) 1,000 mg in 100 mls @ 400 mls/hr IV Q8H PRN PRN Reason: Pain Rating 1-3 & Pre PT Stop: 11/15/20 10:40 Lorazepam (Ativan) 0.5 mg in 1 mls @ 1 mls/min IV Q8H PRN PRN Reason: Sedation/Anxiety Stop: 12/14/20 10:39 Metoclopramide HCl (Metoclopramide Hcl Inj 5 Mg/Ml 2 Ml Vial) 10 mg IV Q6H PRN PRN Reason: Nausea &/or Vomiting Stop: 12/14/20 10:39 Miscellaneous Information (Pharmacy Glycemic Mgmt Consult) 1 ea N/A UD PRN PRN Reason: Consult Stop: 12/14/20 10:39 Naloxone HCl (Naloxone Hcl 0.4 Mg/1 Ml Vial/Carp) 0.1 mg IV Q5M PRN PRN Reason: Oversedation/respiratory dep Stop: 12/14/20 10:39 Ondansetron HCl (Ondansetron Inj 2 Mg/Ml 2 Ml Vial) 4 mg IV Q6H PRN PRN Reason: Nausea &/or Vomiting Stop: 12/14/20 10:39 Ondansetron HCl (Ondansetron 4 Mg Od Tab) 4 mg PO Q6H PRN PRN Reason: Nausea Stop: 12/14/20 10:39 Oxycodone HCl (Oxycodone Hcl Ir 5 Mg Tab (Immediate Release)) 5 - 10 mg PO Q4H PRN PRN Reason: mod to severe pain Stop: 11/28/20 10:39 Discontinued Medications Diphenhydramine HCl (Diphenhydramine 50 Mg/Ml Vial) 25 mg IV NOW STA Stop: 10/06/21 09:44 Last Admin: 11/14/20 10:49 Dose: 25 mg Documented by: [id number] Hydromorphone HCl (Hydromorphone Inj 0.5 Mg/0.5 Ml Syr) 0.5 mg IV NOW STA Stop: 11/14/20 09:44 Last Admin: 11/14/20 10:49 Dose: 0.5 mg Documented by: [id number] ECG Additional Comments: Normal sinus rhythm Normal ECG When compared with ECG of 23-JUN-2020 14:18, QT has shortened PG Care Time/CCT Total # of Minutes Spent Total Time Spent with Patient: Total time spent is greater than 50% in coordina tion of care (as documented) at patient's floor/unit and/or counseling patient: Coding Level of Care Code 79710 Inpt Consult Level 4 Diagnoses Sciatica M54.30 Hypertension I10 Heart murmur R01.1 Severe sleep apnea G47.30 CAD (coronary artery disease) I25.10 Restless leg syndrome G25.81 Diabetes mellitus, type 2 E11.9 GERD (gastroesophageal reflux disease) K21.9 Hypothyroidism E03.9 Hyperlipidemia E78.5 Leukocytosis D72.829
[2020-11-14 11:26] LABS: Albumin Level 3.7 gm/dl (3.4-5.0); BUN Creatinine Ratio 19.1 (10-20); Calcium 10.4 mg/dl (8.5-10.1); Creatinine Clr Calc Pharmacy 62.4 ml/min; Est GFR (African American) 68.3 ml/min; Potassium 4.5 mmol/L (3.5-5.1)
[2020-11-14 11:29] LABS: Albumin Globulin Ratio 0.8 (0.9-2); Bilirubin,Total 0.5 mg/dl (0.2-1); Globulin 4.5 gm/dl (2.5-4.0); Total Protein 8.2 gm/dl (6.4-8.2)
--- NOTE | 2020-11-14 13:31 | Anesthesiology Consultation ---
Date of Service November 14, 2020 Assessment & Plan (1) Encounter for pre-operative examination: Chart Review Chart Review: Acceptable Risk for Surgery and Patient NOT seen in Pre Admission Testing Consults Requested none History Surgery Operation Date: 11/15/20 10:05 Proposed Procedures p L5-S1 Decompression Fusion, Spinal Cord Monitoring - Slaeem Gomez DO Height/Weight Height: 5 ft 1 in Weight: 107.6 kg Allergies Allergy/AdvReac Type Severity Reaction Status Date / Time ketorolac [From Toradol] Allergy Severe throat Verified 11/14/20 12:06 swelling morphine Allergy Mild severe Verified 11/14/20 12:06 back pain, stomach pain propoxyphene Allergy Mild itchy,RASH Verified 11/14/20 12:06 hydrocodone AdvReac Mild ITCH Verified 11/14/20 12:06 hydromorphone AdvReac Mild itchy Verified 11/14/20 12:06 oxycodone AdvReac Mild itchy Verified 11/14/20 12:06 tramadol AdvReac Mild ITCH Verified 11/14/20 12:06 acetaminophen AdvReac Unknown PT NOT Verified 11/14/20 12:06 [From Darvocet-N] SUPPOSED TO TAKE DUE TO LIVER ISSUES Medications Home Medications Medication Instructions Recorded Confirmed Last Taken cholecalciferol (vitamin D3) 25 1,000 unit PO QAM 01/28/18 11/14/20 11/13/20 mcg (1,000 unit) capsule (Vitamin D3) lisinopril 30 mg tablet 30 mg PO QAM #90 tab 11/08/19 11/14/20 11/13/20 montelukast 10 mg tablet 10 mg PO HS #90 tab 12/28/19 11/14/20 11/13/20 mirtazapine 7.5 mg tablet 7.5 mg PO HS #90 tab 02/07/20 11/14/20 11/13/20 dexlansoprazole 60 mg 60 mg PO QAM PRN 03/19/20 11/14/20 06/21/20 capsule,biphase delayed release (Dexilant) diphenhydramine HCl 25 mg capsule 25 mg PO HS 06/23/20 11/14/20 11/13/20 (Benadryl) lidocaine 5 % topical patch 1 patch TOP DAILY PRN #15 ea 06/23/20 11/14/20 11/07/20 rosuvastatin 20 mg tablet 20 mg PO HS #90 tab 09/03/20 11/14/20 11/13/20 ropinirole 0.25 mg tablet 1 mg PO HS #120 tab 09/14/20 11/14/20 11/13/20 penciclovir 1 % topical cream 1 applic TOPICAL Q2H 4 Days #5 g 09/28/20 11/14/20 11/13/20 (Denavir) allopurinol 100 mg tablet 100 mg PO QAM 10/10/20 11/14/20 11/13/20 clotrimazole-betamethasone 1 1 applic TOPICAL BID 10/10/20 11/14/20 11/13/20 %-0.05 % topical cream diltiazem HCl 240 mg capsule,24 240 mg PO QAM 10/10/20 11/14/20 11/13/20 hr,extended release (Tiadylt ER) glimepiride 2 mg tablet 2 mg PO QAM 10/10/20 11/14/20 11/13/20 levothyroxine 100 mcg tablet 100 mcg PO QAM 10/10/20 11/14/20 11/13/20 (Euthyrox) meloxicam 15 mg tablet 15 mg PO QAM 10/10/20 11/14/20 11/13/20 oxybutynin chloride 15 mg 15 mg PO QAM 10/10/20 11/14/20 11/13/20 tablet,extended release 24 hr pregabalin 150 mg capsule 150 mg PO TID #90 cap 11/06/20 11/14/20 11/13/20 oxycodone 5 mg tablet 5 mg PO Q6H PRN #10 tab 11/09/20 11/14/20 11/14/20 duloxetine 30 mg capsule,delayed 60 mg PO QAM #60 cap 11/13/20 11/14/20 11/13/20 release acetaminophen 500 mg capsule 1,000 mg PO Q6H PRN 11/14/20 11/14/20 11/13/20 1500 mg ibuprofen 200 mg tablet 400 mg PO Q6H PRN 11/14/20 11/14/20 11/13/20 200 mg Past Medical History Medical History Anemia CAD (coronary artery disease) Carpal tunnel syndrome Chronic back pain GETS INJECTIONS Congestive heart failure, unspecified (02/21/12) Depression Diabetes mellitus, type 2 niddm Enlarged liver Fibromyalgia GERD (gastroesophageal reflux disease) Goiter, unspecified (02/21/12) Gout Hyperlipidemia Hypertension Hypothyroidism Intestinal infection due to Clostridium difficile (02/21/12) Lymphedema Morbid obesity with BMI of 40.0-44.9, adult Osteoarthritis Restless leg syndrome Sacroiliitis, not elsewhere classified (02/21/12) Sinusitis Sleep apnea cpap (non-compliant) SOB (shortness of breath) on exertion Spinal stenosis Temporomandibular joint disorder HX RIGHT SIDE-S/P PT/IMPROVED Urinary incontinence Vitamin D deficiency Past Family History Family History Father Family history of diabetes mellitus Myocardial infarction Diabetes Lung cancer Lung disease Grandmother (Maternal) Family hx of colon cancer Mother Hypertension Kidney disease Other Colorectal cancer Denies family history of Ovarian cancer Prostate cancer Breast cancer Past Surgical History Surgical History History of appendectomy History of cardiac cath 09/01/2017 @ [facility] by Dr. Russo--follows with Trever Andrade History of carpal tunnel release right hand History of section x2 History of cholecystectomy History of colonoscopy History of dilatation and curettage History of esophagogastroduodenoscopy (EGD) History of tooth extraction wisdom teeth History of total abdominal hysterectomy and bilateral salpingo-oophorectomy S/P epidural steroid injection Status post right foot surgery Social History Smoking Status: Never smoker Hx Alcohol Use: Yes Alcohol type: hard liquor alcohol intake frequency: holidays/special occasions only Hx Substance Use: No substance use type: does not use Physical Exam Vital Signs Last Vital Signs Temp 98.2 F 11/14/20 09:15 Pulse 88 11/14/20 13:00 Resp 18 11/14/20 13:00 BP 150/85 H 11/14/20 13:00 Pulse Ox 94 11/14/20 13:00 Testing Laboratory Results 11/14/20 10:45 11/14/20 10:45 Urine Color Yellow 11/14/20 09:52 Urine Appearance Clear (Clear) 11/14/20 09:52 Urine pH 6.5 (4.5-7.5) 11/14/20 09:52 Ur Specific [place] 1.015 (1.000-1.030) 11/14/20 09:52 Urine Protein Negative (Negative) 11/14/20 09:52 Urine Glucose (UA) Trace (Negative) H 11/14/20 09:52 Urine Ketones Negative (Negative) 11/14/20 09:52 Urine Nitrite Negative (Negative) 11/14/20 09:52 Ur Leukocyte Esterase Negative (Negative) 11/14/20 09:52 Blood Type O Positive 11/14/20 11:30 Antibody Screen NEGATIVE 11/14/20 11:30 Electrocardiogram Date: 11/14/20 Findings: + NSR @ (86) Echocardiogram Date: 08/30/09 EF: 60-65 -- Normal LV size, wall motion and systolic function. -- LVEF 60% to 65%. -- No LVH. -- Mild TR. Stress Test Date: 01/12/17 Type: exercise Findings: + WNL -- Negative stress echo for ischemia at 95% MPHR. -- No exercise induced chest pain. -- Baseline echo with normal LV function and wall motion. Cardiac Catheterization Date: 09/01/17 -- LMCA -- Normal. -- LAD -- Luminal irregularities in the midvessel. -- LCx -- Normal. -- RCA -- Dominant vessel, 20% ostial stenosis, distal luminal irregularities. -- Medical Management Recommended.
[2020-11-14] MEDS ORDERED: DEXTROSE 50% 50 ML SYRINGE IV PRN (14:02)
[2020-11-14] MEDS ORDERED: LIDOCAINE 5% 1 PATCH TD PRN (14:02)
[2020-11-14] MEDS ORDERED: CARBOHYDRATES FOR HYPOGLYCEMIA PO PRN (14:02)
[2020-11-14] MEDS ORDERED: GLUCOSE 40% GEL 15 GM TUBE PO PRN (14:02)
[2020-11-14] MEDS ORDERED: PANTOprazole 40 MG TAB PO PRN (14:02)
[2020-11-14] MEDS ORDERED: GLUCAGON FOR INJ 1 MG VIAL SQ PRN (14:02)
[2020-11-14] MEDS ORDERED: GLUCOSE 10 TABS/TUBE PO PRN (14:02)
--- NOTE | 2020-11-14 14:31 | XRay Report ---
XR chest 2V PA/lateral INDICATION: Knee and back pain. TECHNIQUE: AP and lateral frontal radiograph of the chest was obtained. Comparison: None available at the time of this dictation. FINDINGS: No lines and tubes are seen. The cardiomediastinal silhouette is normal. The lungs are clear. No evid ence of pleural effusion or pneumothorax. IMPRESSION: No acute chest disease. ACT 112: Negative or not required by law. Electronically signed by: Luis Houston M.D. 11/14/2020 2:30 PM
--- NOTE | 2020-11-14 14:52 | Pharmacy Report ---
Pharmacy Glycemic Short Note 2 - Date of Service November 14, 2020 - Glycemic Short BSG Results (Last 24 hours): 11/14/20 10:45 Glucose 174 H OUTPATIENT ANTIDIABETIC REGIMEN: * Amaryl 2 mg PO QAM * Metformin ASSESSMENT: * 65 y/o F admitted for intractable back pain and sciatica. She will probably have surgery tomorrow. Pt with history of Type 2 diabetes managed at home on oral Amaryl and Metformin. Will hold oral anti-diabetic meds while admitted. * Mid-morning BSG was 174 mg/dl. Pharmacy consulted this afternoon. IV Decadron 8 mg q8h x 3 doses ordered this AM but delayed administration until 1600 since admission was delayed. * NPH insulin ordered based on wt and stress of 3 to be given with the IV Decadron 1st dose and then later tonight based on BSG scale. * Novolog ordered based on wt and stress of 2. * Dosing to be adjusted as required this evening. PLAN FOR INPATIENT GLYCEMIC CONTROL: * Hold outpatient oral diabetes medications * Basal insulin * NPH 25 units SQ x1 with 1st dose of IV Decadron at 1600. * NPH 10-25 units scale based on BSG at 2200. * Bolus insulin * NovoLog per scale ACHS or Q6hrs while NPO * Goal Range: Low 110 mg/dL - High 140 mg/dL * Correction Factor: 20 mg/dL/unit * Nutritional / Prandial insulin per carb ratio of 1 unit per 7 grams CHO consumed PLAN FOR DISCHARGE: * TBD
[2020-11-14] MEDS: PREGABALIN 150 MG CAP PO SCH ×2 (15:23→21:20)
[2020-11-14] MEDS: diazePAM 5 MG TABLET PO SCH ×2 (15:23→21:20)
[2020-11-14] MEDS: HYDROmorphone INJ 0.5 MG/0.5 ML SYR IV PRN ×2 (15:23→23:01)
[2020-11-14] MEDS: LACTATED RINGER'S 1,000 ML IV SCH (15:24)
[2020-11-14] MEDS ORDERED: INSULIN HUMAN NPH SC ONE ×2 (16:00→22:00)
--- NOTE | 2020-11-14 17:22 | XCELERA ---
[id number]
[2020-11-14] MEDS: dexAMETHasone 8 MG in SYRINGE 0 ML IV SCH ×2 (17:50→23:03)
--- NOTE | 2020-11-14 17:54 | Electrocardiogram Report ---
Test Reason : Blood Pressure : / mmHG Vent. Rate : 086 BPM Atrial Rate : 086 BPM P-R Int : 140 ms QRS Dur : 096 ms QT Int : 374 ms P-R-T Axes : 041 023 042 degrees QTc Int : 447 ms Poor data quality, interpretation may be adversely affected Normal sinus rhythm Normal ECG When compared with ECG of 23-JUN-2020 14:18, QT has shortened Confirmed by Maxim Chappell ([id number]) on 11/14/2020 5:54:14 PM Referred By: Gabe Watkins Confirmed By:Moises Chappell
[2020-11-14] MEDS: INSULIN ASPART 100 UNITS/ML 3 ML PEN SC SCH ×2 (17:55→21:27)
[2020-11-14] MEDS: rOPINIRole HCL 1 MG TABLET PO SCH (21:22)
[2020-11-14] MEDS: MIRTAZAPINE TAB 15 MG TAB PO SCH (21:22)
[2020-11-14] MEDS: ROSUVASTATIN CALCIUM 20 MG TAB PO SCH (21:23)
[2020-11-15] MEDS: INSULIN ASPART 100 UNITS/ML 3 ML PEN SC SCH ×6 (00:09→20:48)
[2020-11-15] MEDS: LACTATED RINGER'S 1,000 ML IV SCH ×4 (03:42→22:01)
[2020-11-15] MEDS: diazePAM 5 MG TABLET PO SCH ×3 (05:45→22:03)
[2020-11-15] MEDS ORDERED: ceFAZolin 2000MG 2,000 MG/15 ML SYR IV SCH (06:00)
[2020-11-15] MEDS: LEVOTHYROXINE SODIUM 100 MCG TABLET PO SCH (06:00)
[2020-11-15 06:34] LABS: Hematocrit (blood only) 38.4 % (37-47); Hemoglobin 13.2 g/dL (12.0-16.0); Immature Granulocytes # (auto) 0.04 K/uL (0.00-0.02); Immature Granulocytes % (auto) 0.3 %; Lymphocytes # (auto) 0.66 K/uL (1.2-3.4); Lymphocytes % (auto) 5.6 %; Mean Corpuscular Hemoglobin 31.8 pg (25-34); Mean Corpuscular Hgb Conc 34.4 g/dL (32-36); Mean Corpuscular Volume 92.5 fL (80-100); Mean Platelet Volume 11.4 fL (7.4-10.4); Monocytes # (auto) 0.07 K/uL (0.11-0.59); Monocytes % (auto) 0.6 %; Neutrophils # (auto) 11.04 K/uL (1.4-6.5); Neutrophils % (auto) 93.5 %; Platelet Count 211 K/uL (130-400); RDW Coefficient of Variation 13.8 % (11.5-14.5); RDW Standard Deviation 47.2 fL (36.4-46.3); Red Blood Count 4.15 M/uL (4.2-5.4); White Blood Count 11.81 K/uL (4.8-10.8)
[2020-11-15 07:08] LABS: BUN Creatinine Ratio 19.2 (10-20); Calcium 9.6 mg/dl (8.5-10.1); Est GFR (African American) 65.1 ml/min; Est GFR (Non-African American) 56.2 ml/min; Magnesium 2.1 mg/dl (1.8-2.4); Potassium 4.4 mmol/L (3.5-5.1)
[2020-11-15] MEDS ORDERED: INSULIN HUMAN NPH SC ONE (07:30)
[2020-11-15] MEDS: OXYBUTYNIN CHLORIDE XL 5 MG TABCR PO SCH (08:49)
[2020-11-15] MEDS: PREGABALIN 150 MG CAP PO SCH ×3 (08:49→20:44)
[2020-11-15] MEDS: DULoxetine HCL 60 MG CAP PO SCH (08:49)
[2020-11-15] MEDS: dilTIAZem HCL 240 MG CAPCR PO SCH (08:49)
[2020-11-15] MEDS: lisinopril 10 MG TAB PO SCH (08:49)
[2020-11-15] MEDS ORDERED: GLIMEPIRIDE 2 MG TAB PO SCH (09:00)
[2020-11-15] MEDS: dexAMETHasone 8 MG in SYRINGE 0 ML IV SCH (09:07)
[2020-11-15] MEDS ORDERED: ONDANSETRON INJ 2 MG/ML 2 ML VIAL IV PRN ×2 (09:34→14:27)
[2020-11-15] MEDS ORDERED: HYDROmorphone INJ 2 MG/ML SYR/VIAL IV PRN (09:34)
[2020-11-15] MEDS ORDERED: ePHEDrine sulfate 50 MG/ML AMP IV PRN (09:34)
[2020-11-15] MEDS ORDERED: ATROPINE SULFATE 0.1 MG/ML 10ML SYR IV PRN (09:34)
--- NOTE | 2020-11-15 10:32 | Hospitalist Progress Note ---
Date of Service November 15, 2020 Assessment & Plan (1) Sciatica: Plan: with uncontrolled outpt radicular pain and some paresthesias that correspond to imaging of severe foraminal stenosis at Left L5 - MRI reported with L5-S1 disc herniation complicating the above -medically optimized although has pre hospital type 2 Diabetes, known CAD and morbid obesity with SHAN, for OR 11/15 (2) Hypertension: Plan: Appears majority of her BP as outpatient are 140 or less - Continue Diltiazem 240 mg PO qam - Continue with Lisinopril 30 Qam- Recommend holding 24 hours post surgery evaluate renal function and euvolemia (3) CAD (coronary artery disease): Plan: Non-occlusive disease - CARDIAC CATHETERIZATION 09/01/2017: -- LMCA -- Normal. -- LAD -- Luminal irregularities in the midvessel. -- LCx -- Normal. -- RCA -- Dominant vessel, 20% ostial stenosis, distal luminal irregularities. -- Medical Management Recommended. As above- Continue Rosuvastatin 20mg Po daily ECG is at baseline and no worsening or changing symptoms regading her dyspnea - ECHO-normal EF and no concern for acute changes there is comment of Diastolic Dysfunction type 1, (4) Heart murmur: Plan: no comment on significant valvular abnormalities (5) Hyperlipidemia: Plan: As above - previous lipid panel within goals (6) Severe sleep apnea: Plan: Not compliant with CPAP at home - states she has not worn it for years and sent machine back - Follow in house - Would recommend SPO2 monitoring and/or EtCO2 monitoring with increased use of narcotics and sedatives - Will order CPAP at bedside for use (7) Restless leg syndrome: Plan: Continue pre-gablin, ropinirole, continue mirtazipine (8) Diabetes mellitus, type 2: Plan: Change to sliding scale insulin aspart - will hold on adding carb coverage. Follow add on if needed - Goal <180 will be influenced by intraoperative steroids (9) GERD (gastroesophageal reflux disease): Plan: Continue dexolant or equivalnet (10) Hypothyroidism: Plan: Continue Synthroid dosing 100mcg Po Qam (11) Leukocytosis: Plan: improved - stress response likely vs. demanganization. not concern of acute infection Admission and Anticipated Discharge Date Admission Date: November 14, 2020 Subjective pt is still a bit painful post operatively, cannot get out of bed to urinate and will have chavez cath placed temporarily, SAMINA redd with serosanguinous drainage Review of Systems Review of Systems: moderate distress and fatigue no headache, no visual changes no speech or swallowing issues no chest pain, pressure or palpitations no shortness of breath, cough or wheezes no abdominal pain, nausea or vomiting, diarrhea or constipation no dysuria, hematuria or frequency no focal joint pain or swelling generalized lower back pain without radiation no focal signs of weakness or numbness or altered sensation no complaints of anxiety or depression.. Physical Exam Physical Exam: The patient appeared well nourished and normally developed. she is in moderate post operative pain at my visit Vital signs as documented. Head exam is normocephalic atraumatic Neck is without JVD, thyromegaly, or carotid bruits. Lungs are clear to auscultation, no focal loss of breath sounds Cardiac exam, Rhythm is regular.. No murmurs, rubs or gallops. Abdominal exam reveals normal bowel sounds, soft non tender, no masses Extremities are nonedematous and both pedal pulses are present Neurologic exam is alert and oriented, no focal loss of strength or sensation can move both legs and has sensation intact Psychologically is without concerns for anxiety or depression Results & Data Results & Data ([facility]) Vital Signs (Past 12 Hours) Vital Signs Temp Pulse Resp BP BP Pulse Ox 11/15/20 09:37 98.6 F 93 H 20 142/89 H 94 11/15/20 07:35 98.8 F 85 16 136/76 93 11/14/20 22:37 99.9 F H 90 18 155/91 H 91 PG Care Time/CCT Total # of Minutes Spent Total Time Spent with Patient: Total time spent is greater than 50% in coordination of care (as documented) at patient's floor/unit and/or counseling patient: Coding Level of Care Code 71239 Subseq Hosp Care Lvl 2 Diagnoses Sciatica M54.30 Hypertension I10 CAD (coronary artery disease) I25.10 Heart murmur R01.1 Hyperlipidemia E78.5 Severe sleep apnea G47.30 Restless leg syndrome G25.81 Diabetes mellitus, type 2 E11.9 GERD (gastroesophageal reflux disease) K21.9 Hypothyroidism E03.9 Leukocytosis D72.829
--- NOTE | 2020-11-15 10:43 | History & Physical Bridge Note ---
Date of Service November 15, 2020 History & Physical Bridge Note I have examined the patient, reviewed the History & Physical and in the interval since the performance of the History & Physical I have noted the following changes of clinical significance: no changes noted Decompression fusion L5-S1
[2020-11-15] MEDS ORDERED: MIDAZOLAM HCL 1 MG/ML 2ML VIAL ONE (10:54)
[2020-11-15] MEDS ORDERED: LIDOCAINE 2% 2 ML VIAL/AMP(20MG/ML) INFIL ONE (10:54)
[2020-11-15] MEDS ORDERED: PROPOFOL IV EMULSION 10 MG/ML 20 ML VIAL IV ONE (10:54)
[2020-11-15] MEDS ORDERED: fentaNYL citrate 100 MCG/2 ML VIAL ONE ×5 (10:54→13:44)
[2020-11-15] MEDS ORDERED: ROCURONIUM BROMIDE 10 MG/ML 5 ML VIAL IV ONE (10:54)
[2020-11-15] MEDS ORDERED: DEXAMETHASONE SOD INJ 4 MG/ML VIAL ONE (11:01)
[2020-11-15] MEDS ORDERED: ONDANSETRON INJ 2 MG/ML 2 ML VIAL ONE (11:01)
[2020-11-15] MEDS ORDERED: EPINEPHrine INJ 1 MG/ML AMP ONE (11:07)
[2020-11-15] MEDS ORDERED: BUPIVACAINE 0.5 % 5 MG/1 ML MPF 30ML VIAL ONE (11:07)
[2020-11-15] MEDS ORDERED: FLOSEAL HEMOSTATIC MATRIX 10ML TOP ONE (12:02)
--- NOTE | 2020-11-15 12:58 | Operative Report ---
Post Operative Report Pre & Post Diagnosis Operation Date: 11/15/20 10:05 Pre-Op Diagnosis: Acute L5-S1 left far lateral disc herniation. Post-Op Diagnosis: Acute L5-S1 left far lateral disc herniation. I identified the patient and participated in the time-out.: Yes Procedure Operation Date: 11/15/20 10:05 Actual Procedures #1 Lumbar decompression with bilateral medial facetectomies and foraminotomies L4-5 L5-S1. #2 posterior spinal fusion L5-S1. #3 placement posterior instrumentation L5-S1. #4 interbody fusion L5-S1. #5 placement of peek cage 12 x 26 mm at L5-S1. #6 placement locally harvested morselized autograft in the posterior gutters. #7 placement infuse collagen sponge, master graft in the posterior gutters and I factor in the interbody space. Surgeon Saleem Gomez, DO Physical Metallurgist Juliet Dey Estimated Blood Loss 300 Findings See Below The patient is 5 foot 1 inches tall weighing over 107 kg with a BMI in excess of 44. The patient's body habitus did contribute to significant technical difficulty requiring her deepest retractors longus instruments in order to perform her procedure. This had at least 50% increase to the operative time. Specimens None Indications This is a 65-year-old female the presents with marked clotting status pain and neuro deficit and is here for urgent surgery. Description of Procedure Patient was met with identified informed consent obtained. Patient was then taken to the operative suite underwent ablation placed in a prone position on the Luis table on top Srinath frame. All bony prominences well-padded eyes inspected to ensure no external pressure placed upon the. This point lumbar spine was prepped and draped in a sterile fashion. Sharp dissection with the assistance of Bovie cautery was performed down to and exposing the lamina and transverse process of L5 and the sacral ala bilaterally. From caudal cephalad fashion complete laminectomy L5 partial laminectomy of L4 was performed including bilateral medial facetectomies and foraminotomies addressing severe spinal stenosis as well as a massive far lateral disc herniation on the left. After decompression pedicle screws were placed in L5 and S1 levels bilaterally with assistance of fluoroscopy and the properly sized rods placed. By way of a transforaminal approach on the left complete discectomy was performed endplates curetted to subcortically bone and a 12 x 26 mm peek cage filled with I factor tapped in position. The rods then compressed locked into final position bilaterally. The transverse processes of L5 and the sacral ala burred to subcortically bone. Infuse collagen sponge master graft local autograft was placed in the posterior gutters. 15 round SAMINA drain inserted. The incision was then closed with 1 Vicryl the fascia 2-0 Vicryl subcutaneously and 4 Monocryl for final skin closure. Steri-Strip sterile dressings placed. Patient waken taken to PACU stable condition. Please note spinal cord monitoring was utilized at the procedure no changes noted. Lastly Juliet Dey was present at the entire surgery involved in patient positioning complex portions of the surgery and final skin closure. I attest to the content of the Intraoperative Record and any orders documented therein. Any exceptions are noted below.
[2020-11-15] MEDS ORDERED: GLYCOPYRROLATE 0.2 MG/ML VIAL ONE (13:30)
[2020-11-15] MEDS ORDERED: NEOSTIGMINE METHYLSULFATE 1 MG/ML 10ML VIAL ONE (13:30)
[2020-11-15] MEDS: fentaNYL citrate 100 MCG/2 ML VIAL IV PRN ×4 (13:30→13:47)
--- NOTE | 2020-11-15 13:44 | Fluoroscopy Report ---
FL lumbar spine 2-3V CLINICAL INDICATION: MN ^L5-S1 DFI. TECHNIQUE: 2 views were obtained with the C-arm in the OR with the above procedure. Total fluoroscopy time was 17.8 seconds. Total skin dose was 18.6 mGy. Comparison: Comparison is made to lumbar spine series 10/04/2020 FINDINGS/IMPRESSION: Multiple intraoperative images are obtained of posterior lumbar fixation hardwar e placement. Please correlate with intraoperative fluoroscopy and operative report. ACT 112: Negative or not required by law. Electronically signed by: Luis Houston M.D. 11/15/2020 1:42 PM
--- NOTE | 2020-11-15 14:01 | Anesthesiology Progress Note ---
Date of Service November 15, 2020 Anesthesia Post Procedure Vital Signs Vital Signs: Temp Pulse Pulse Pulse Resp BP BP 11/15/20 13:55 87 16 156/89 H 11/15/20 13:45 94 H 16 168/112 H 11/15/20 13:35 84 16 183/99 H 11/15/20 13:25 89 16 146/90 H 11/15/20 13:19 36.3 C L 92 H 16 177/99 H 11/15/20 09:37 37 C 93 H 20 142/89 H 11/15/20 07:35 37.1 C 85 16 136/76 11/14/20 22:37 37.7 C H 90 18 155/91 H 11/14/20 16:00 37.2 C 89 18 149/89 H Pulse Ox 11/15/20 13:55 95 11/15/20 13:45 95 11/15/20 13:35 96 11/15/20 13:25 96 11/15/20 13:19 96 11/15/20 09:37 94 11/15/20 07:35 93 11/14/20 22:37 91 11/14/20 16:00 97 Pain Intensity Bilateral Lower Back: Pain Intensity: 10 Transfer of Care Handoff Completed per policy Notes Mental Status: alert / awake / arousable and participated in evaluation Patient Amnestic to Procedure: Yes Nausea / Vomiting: adequately controlled Pain: adequately controlled Airway Patency, RR, SpO2: stable & adequate BP & HR: stable & adequate Hydration State: stable & adequate Anesthetic Complications: no major complications apparent
[2020-11-15] MEDS ORDERED: LORazepam 0.5 MG TAB PO PRN (14:27)
[2020-11-15] MEDS ORDERED: ONDANSETRON 4 MG OD TAB PO PRN (14:27)
[2020-11-15] MEDS ORDERED: hydrOXYzine HCl 25 MG TAB PO PRN (14:27)
[2020-11-15] MEDS ORDERED: METOCLOPRAMIDE HCL INJ 5 MG/ML 2 ML VIAL IV PRN (14:27)
[2020-11-15] MEDS ORDERED: LORazepam 0.5 MG/1 ML VIAL IV PRN (14:27)
[2020-11-15] MEDS ORDERED: ACETAMINOPHEN 1,000 MG/100 ML VIAL IV PRN (14:27)
[2020-11-15] MEDS ORDERED: diphenhydrAMINE Capsule 25 MG CAP PO PRN (14:27)
[2020-11-15] MEDS ORDERED: DO NOT ADMINISTER PNEUMOCOCCAL VACCINE PRN (14:27)
[2020-11-15] MEDS ORDERED: NALOXONE HCL 0.4 MG/1 ML VIAL/CARP IV PRN (14:27)
[2020-11-15] MEDS ORDERED: DO NOT ADMINISTER FLU VACCINE PRN (14:27)
[2020-11-15] MEDS ORDERED: bisacodyL 10 MG SUPP PR PRN (14:27)
[2020-11-15] MEDS ORDERED: SOD PHOSPHATE/SOD BIPHOSPHATE ENEMA 132 ML BTL PR PRN (14:27)
[2020-11-15] MEDS ORDERED: MAGNESIUM HYDROXIDE SUSP 30 ML UDC PO PRN (14:27)
[2020-11-15] MEDS ORDERED: PROMETHAZINE HCL 12.5 MG in SODIUM CHLORIDE 0.9% 50 ML IV PRN (14:27)
[2020-11-15] MEDS ORDERED: FAMOTIDINE 20 MG TAB PO PRN (14:27)
[2020-11-15] MEDS ORDERED: ALUMINUM/MAGNESIUM SUSP 30 ML UDC PO PRN (14:27)
[2020-11-15] MEDS: HYDROmorphone INJ 0.5 MG/0.5 ML SYR IV PRN (14:33)
--- NOTE | 2020-11-15 14:48 | Pharmacy Report ---
Pharmacy Glycemic Short Note 2 - Date of Service November 15, 2020 - Glycemic Short BSG Results (Last 24 hours): 11/14/20 11/14/20 11/14/20 17:28 20:25 23:59 Glucose POC Glucose 129 H 230 H 230 H 11/15/20 11/15/20 11/15/20 04:12 06:09 07:45 Glucose 256 H POC Glucose 270 H 236 H 11/15/20 11/15/20 09:49 13:23 Glucose POC Glucose 271 H 191 H OUTPATIENT ANTIDIABETIC REGIMEN: * Amaryl 2 mg PO QAM * Metformin ASSESSMENT: 11/15: * Pt received total 38 units of insulin yesterday; 25 units basal + 13 units bolus. * She was receiving Decadron 8 mg IV q8h x 3 doses. Blood sugars have all been elevated since this started. * Fasting BSG today AM = 236 mg/dl. NPH 35 units was given with the IV Decadron today AM. * Post op so far steroids have not been resumed. * Will continue with a lower dose of NPH dose scale BID based on BSG. * Continued Novolog parameters the same as yesterday. 11/14/20: * 65 y/o F admitted for intractable back pain and sciatica. She will probably have surgery tomorrow. Pt with history of Type 2 diabetes managed at home on oral Amaryl and Metformin. Will hold oral anti-diabetic meds while admitted. * Mid-morning BSG was 174 mg/dl. Pharmacy consulted this afternoon. IV Decadron 8 mg q8h x 3 doses ordered this AM but delayed administration until 1600 since admission was delayed. * NPH insulin ordered based on wt and stress of 3 to be given with the IV Decadron 1st dose and then later tonight based on BSG scale. * Novolog ordered based on wt and stress of 2. * Dosing to be adjusted as required this evening. PLAN FOR INPATIENT GLYCEMIC CONTROL: * Hold outpatient oral diabetes medications * Basal insulin * NPH 25 units SQ x1 with 1st dose of IV Decadron at 1600. * NPH 35 units SQ x1 dose this AM with IV Decadron. * NPH 0-15 units scale BIDM based on BSG starting with dinner today. * Bolus insulin: continued * NovoLog per scale ACHS or Q6hrs while NPO * Goal Range: Low 110 mg/dL - High 140 mg/dL * Correction Factor: 20 mg/dL/unit * Nutritional / Prandial insulin per carb ratio of 1 unit per 7 grams CHO consumed PLAN FOR DISCHARGE: * TBD
[2020-11-15] MEDS: INSULIN HUMAN NPH SC SCH (17:28)
[2020-11-15] MEDS: MIRTAZAPINE TAB 15 MG TAB PO SCH (20:44)
[2020-11-15] MEDS: rOPINIRole HCL 1 MG TABLET PO SCH (20:45)
[2020-11-15] MEDS: DOCUSATE SODIUM/SENNA 50/8.6MG TAB PO SCH (20:45)
[2020-11-15] MEDS: ROSUVASTATIN CALCIUM 20 MG TAB PO SCH (20:47)
[2020-11-15] MEDS: HYDROmorphone INJ 1 MG/ML SYRINGE IV PRN (22:04)
[2020-11-16] MEDS: INSULIN ASPART 100 UNITS/ML 3 ML PEN SC SCH ×6 (01:18→20:55)
[2020-11-16] MEDS: HYDROmorphone INJ 1 MG/ML SYRINGE IV PRN ×4 (01:22→18:36)
[2020-11-16] MEDS: LACTATED RINGER'S 1,000 ML IV SCH ×3 (04:22→18:36)
[2020-11-16] MEDS: diazePAM 5 MG TABLET PO SCH ×3 (06:00→22:42)
[2020-11-16] MEDS: POLYETHYLENE (MIRALAX) 17 GM PACK PO SCH ×4 (06:01→23:53)
[2020-11-16] MEDS: LEVOTHYROXINE SODIUM 100 MCG TABLET PO SCH (06:01)
[2020-11-16 06:34] LABS: Basophils # (auto) 0.01 K/uL (0-0.2); Basophils % (auto) 0.1 %; Hematocrit (blood only) 33.4 % (37-47); Hemoglobin 11.1 g/dL (12.0-16.0); Immature Granulocytes # (auto) 0.06 K/uL (0.00-0.02); Immature Granulocytes % (auto) 0.3 %; Lymphocytes # (auto) 1.38 K/uL (1.2-3.4); Lymphocytes % (auto) 7.5 %; Mean Corpuscular Hemoglobin 31.4 pg (25-34); Mean Corpuscular Hgb Conc 33.2 g/dL (32-36); Mean Corpuscular Volume 94.6 fL (80-100); Mean Platelet Volume 11.4 fL (7.4-10.4); Monocytes # (auto) 1.12 K/uL (0.11-0.59); Monocytes % (auto) 6.1 %; Neutrophils # (auto) 15.91 K/uL (1.4-6.5); Platelet Count 280 K/uL (130-400); RDW Coefficient of Variation 14.1 % (11.5-14.5); RDW Standard Deviation 48.1 fL (36.4-46.3); Red Blood Count 3.53 M/uL (4.2-5.4); White Blood Count 18.48 K/uL (4.8-10.8)
[2020-11-16 07:02] LABS: BUN Creatinine Ratio 20.4 (10-20); Calcium 9.5 mg/dl (8.5-10.1); Creatinine Clr Calc Pharmacy 63.7 ml/min; Est GFR (Non-African American) 60.4 ml/min; Magnesium 2.3 mg/dl (1.8-2.4); Potassium 4.4 mmol/L (3.5-5.1)
--- NOTE | 2020-11-16 07:47 | Hospitalist Progress Note ---
Date of Service November 16, 2020 Assessment & Plan (1) Sciatica: Plan: with uncontrolled outpt radicular pain and some paresthesias that correspond to imaging of severe foraminal stenosis at Left L5 - MRI reported with L5-S1 disc herniation complicating the above -medically optimized although has pre hospital type 2 Diabetes, known CAD and morbid obesity with SHAN, OR 11/15 (2) Hypertension: Plan: Appears majority of her BP as outpatient are 140 or less - Continue Diltiazem 240 mg PO qam - Continue with Lisinopril 30 Qam- (3) CAD (coronary artery disease): Plan: Non-occlusive disease - CARDIAC CATHETERIZATION 09/01/2017: -- LMCA -- Normal. -- LAD -- Luminal irregularities in the midvessel. -- LCx -- Normal. -- RCA -- Dominant vessel, 20% ostial stenosis, distal luminal irregularities. -- Medical Management Recommended. As above- Continue Rosuvastatin 20mg Po daily ECG is at baseline and no worsening or changing symptoms regading her dyspnea - ECHO-normal EF and no concern for acute changes there is comment of Diastolic Dysfunction type 1, (4) Heart murmur: Plan: echo no comment on significant valvular abnormalities (5) Hyperlipidemia: Plan: As above - previous lipid panel within goals (6) Severe sleep apnea: Plan: Not compliant with CPAP at home - states she has not worn it for years and sent machine back - Follow in house - Would recommend SPO2 monitoring and/or EtCO2 monitoring with increased use of narcotics and sedatives - Will order CPAP at bedside for use (7) Restless leg syndrome: Plan: Continue pre-gablin, ropinirole, continue mirtazipine (8) Diabetes mellitus, type 2: Plan: Change to sliding scale insulin aspart - will hold on adding carb coverage. Follow add on if needed - Goal <180 will be influenced by intraoperative steroids (9) GERD (gastroesophageal reflux disease): Plan: Continue dexolant or equivalnet (10) Hypothyroidism: Plan: Continue Synthroid dosing 100mcg Po Qam (11) Leukocytosis: Plan: improved - stress response likely vs. demanganization. not concern of acute infection (12) Acute anemia: Plan: acute anemia in the post operative setting which could be dilutional , monitor for ongoing changes Admission and Anticipated Discharge Date Admission Date: November 15, 2020 Subjective pt is in a much better place today, less pain but still painful with movement, no radicualar pain Review of Systems Review of Systems: mid and declining distress and fatigue no headache, no visual changes no speech or swallowing issues no chest pain, pressure or palpitations no shortness of breath, cough or wheezes no abdominal pain, nausea or vomiting, diarrhea or constipation no dysuria, hematuria or frequency no focal joint pain or swelling continues with generalized lower back pain without radiation. less than yesterday no focal signs of weakness or numbness or altered sensation no complaints of anxiety or depression.. Physical Exam Physical Exam: The patient appeared well nourished and normally developed. she is in moderate post operative pain at my visit Vital signs as documented. Head exam is normocephalic atraumatic Neck is without JVD, thyromegaly, or carotid bruits. Lungs are clear to auscultation, no focal loss of breath sounds Cardiac exam, Rhythm is regular.. No murmurs, rubs or gallops. Abdominal exam reveals normal bowel sounds, soft non tender, no masses Extremities are nonedematous and both pedal pulses are present Neurologic exam is alert and oriented, no focal loss of strength or sensation Psychologically is without concerns for anxiety or depression Results & Data Results & Data ([facility]) Vital Signs (Past 12 Hours) Vital Signs Temp Pulse Pulse Resp BP Pulse Ox 11/16/20 07:29 97.9 F 86 18 112/68 93 11/16/20 03:47 98.1 F 89 18 147/77 H 93 11/15/20 22:09 98.2 F 96 H 18 121/80 95 PG Care Time/CCT Total # of Minutes Spent Total Time Spent with Patient: Total time spent is greater than 50% in coordination of care (as documented) at patient's floor/unit and/or counseling patient: Coding Level of Care Code 47559 Subseq Hosp Care Lvl 2 Diagnoses Sciatica M54.30 Hypertension I10 CAD (coronary artery disease) I25.10 Heart murmur R01.1 Hyperlipidemia E78.5 Severe sleep apnea G47.30 Restless leg syndrome G25.81 Diabetes mellitus, type 2 E11.9 GERD (gastroesophageal reflux disease) K21.9 Hypothyroidism E03.9 Leukocytosis D72.829 Acute anemia D64.9
[2020-11-16] MEDS: INSULIN HUMAN NPH SC SCH ×2 (09:10→18:34)
[2020-11-16] MEDS: dilTIAZem HCL 240 MG CAPCR PO SCH (09:11)
[2020-11-16] MEDS: DULoxetine HCL 60 MG CAP PO SCH (09:11)
[2020-11-16] MEDS: OXYBUTYNIN CHLORIDE XL 5 MG TABCR PO SCH (09:11)
[2020-11-16] MEDS: lisinopril 10 MG TAB PO SCH (09:12)
[2020-11-16] MEDS: PREGABALIN 150 MG CAP PO SCH ×3 (09:17→21:05)
--- NOTE | 2020-11-16 09:55 | Orthopedic Progress Note ---
Date of Service November 16, 2020 Assessment & Plan (1) Sciatica: Plan: Today like to begin physical therapy monitor SAMINA output if she progresses appropriately throughout the weekend she can discharge home. She will most likely require home health and possibly rehab. Admission and Anticipated Discharge Date Admission Date: November 15, 2020 Subjective Back pain controlled leg symptoms improved Physical Exam Physical Exam: Patient is seen with bedside. Appears comfortable. Is good strength testing. Results & Data ([facility]) Vital Signs (Past 12 Hours) Vital Signs Temp Pulse Pulse Resp BP Pulse Ox 11/16/20 07:29 36.6 C 86 18 112/68 93 11/16/20 03:47 36.7 C 89 18 147/77 H 93 11/15/20 22:09 36.8 C 96 H 18 121/80 95 (1) Sciatica Laterality: left Qualified Code(s): M54.32 - Sciatica, left side
[2020-11-16] MEDS: ACETAMINOPHEN 500 MG TAB PO PRN (16:36)
[2020-11-16] MEDS: MIRTAZAPINE TAB 15 MG TAB PO SCH (20:59)
[2020-11-16] MEDS: ROSUVASTATIN CALCIUM 20 MG TAB PO SCH (20:59)
[2020-11-16] MEDS: rOPINIRole HCL 1 MG TABLET PO SCH (21:00)
[2020-11-16] MEDS: DOCUSATE SODIUM/SENNA 50/8.6MG TAB PO SCH (21:05)
[2020-11-16 23:02] LABS: Basophils # (auto) 0.02 K/uL (0-0.2); Basophils % (auto) 0.1 %; Eosinophils # (auto) 0.01 K/uL (0-0.5); Eosinophils % (auto) 0.1 %; Hematocrit (blood only) 28.7 % (37-47); Hemoglobin 9.4 g/dL (12.0-16.0); Immature Granulocytes % (auto) 0.6 %; Lymphocytes # (auto) 2.82 K/uL (1.2-3.4); Lymphocytes % (auto) 16.4 %; Mean Corpuscular Hemoglobin 31.8 pg (25-34); Mean Platelet Volume 10.8 fL (7.4-10.4); Monocytes # (auto) 1.87 K/uL (0.11-0.59); Monocytes % (auto) 10.8 %; Neutrophils # (auto) 12.42 K/uL (1.4-6.5); Platelet Count 221 K/uL (130-400); RDW Coefficient of Variation 14.7 % (11.5-14.5); RDW Standard Deviation 52.2 fL (36.4-46.3); Red Blood Count 2.96 M/uL (4.2-5.4); White Blood Count 17.24 K/uL (4.8-10.8)
[2020-11-16 23:08] LABS: Mean Corpuscular Hgb Conc 32.8 g/dL (32-36)
[2020-11-16 23:34] LABS: BUN Creatinine Ratio 15.8 (10-20); Calcium 8.2 mg/dl (8.5-10.1); Creatinine Clr Calc Pharmacy 26.1 ml/min; Est GFR (African American) 23.8 ml/min; Est GFR (Non-African American) 20.5 ml/min; Potassium 3.9 mmol/L (3.5-5.1)
--- NOTE | 2020-11-17 02:08 | Communication Note ---
Date of Service: November 17, 2020 Was contacted at approximately 10:30 PM on 11/16/2020 and advised that the patient was hypotensive to 73/46. I advised the nurse to run a liter of normal saline wide open and proceeded to evaluate the patient. Upon arrival to the room the patient was somnolent but arousable, alerted & oriented x3, denying any acute pain or difficulty breathing, specifically denying any chest pressure or chest pain. She was conversive, and indicated that her back was in pain. Stat labs were obtained, BMP demonstrated a creatinine of 2.37 this represents an increase from 0.9, CBC demonstrated a hemoglobin of 9.4, this represents a decrease from 11.1. Additionally I reviewed the patient's MAR noting that she had recently received mirtazapine, ropinirole, hydromorphone, in addition to her routine antihypertensive medications. Upon the completion of the 1 L bolus patient still remained hypotensive however she was interactive, conversive, denying new acute pain, and did not seem in acute distress. Given her acute hypotension she was transferred to telemetry for further monitoring and evaluation.I have held her Vistaril and diphenhydramine and Ativan would recommend titration of her medications by a.m. physician and consideration of withholding her antihypertensives. #HORACE As evidenced by creatinine elevation Status post 2 L bolus, repeat labs in the morning #Hypotension Etiology not clear, likely secondary to medication. Monitor on telemetry for improvement, will defer further medication changes to the primary team Resident Activity Tracking Resident Involvement: Resident Care Provided Care Provided: Adult [facility] Medicine
[2020-11-17 05:23] LABS: Eosinophils # (auto) 0.01 K/uL (0-0.5); Eosinophils % (auto) 0.1 %; Hematocrit (blood only) 27.7 % (37-47); Hemoglobin 8.9 g/dL (12.0-16.0); Immature Granulocytes # (auto) 0.04 K/uL (0.00-0.02); Immature Granulocytes % (auto) 0.3 %; Lymphocytes # (auto) 2.27 K/uL (1.2-3.4); Lymphocytes % (auto) 18.4 %; Mean Corpuscular Hemoglobin 31.1 pg (25-34); Mean Corpuscular Hgb Conc 32.1 g/dL (32-36); Mean Corpuscular Volume 96.9 fL (80-100); Monocytes # (auto) 1.34 K/uL (0.11-0.59); Monocytes % (auto) 10.9 %; Neutrophils # (auto) 8.68 K/uL (1.4-6.5); Neutrophils % (auto) 70.3 %; Platelet Count 153 K/uL (130-400); RDW Coefficient of Variation 14.8 % (11.5-14.5); RDW Standard Deviation 52.4 fL (36.4-46.3); Red Blood Count 2.86 M/uL (4.2-5.4); White Blood Count 12.34 K/uL (4.8-10.8)
[2020-11-17 05:43] LABS: BUN Creatinine Ratio 20.1 (10-20); Calcium 7.6 mg/dl (8.5-10.1); Est GFR (African American) 32.7 ml/min; Est GFR (Non-African American) 28.2 ml/min; Magnesium 1.9 mg/dl (1.8-2.4)
[2020-11-17] MEDS: LEVOTHYROXINE SODIUM 100 MCG TABLET PO SCH (06:12)
[2020-11-17] MEDS: POLYETHYLENE (MIRALAX) 17 GM PACK PO SCH ×4 (06:26→23:25)
[2020-11-17] MEDS ORDERED: LACTATED RINGER'S 1,000 ML IV SCH (07:15)
--- NOTE | 2020-11-17 07:19 | Hospitalist Progress Note ---
Date of Service November 17, 2020 Assessment & Plan (1) Hypotension: Plan: Patient will be volume assisted with continued infusion of the lactated Ringer's today this will be to help her acute kidney injury. Creatinine did improve from yesterday. Her TAYLER inhibitor was held. Her antihypertensive medications of diltiazem are reduced. With a consideration of possible toxic encephalopathy from medications. Her Lyrica dose will be reduced will eliminate her hydromorphone (2) Sciatica: Plan: with uncontrolled outpt radicular pain and some paresthesias that correspond to imaging of severe foraminal stenosis at Left L5 - MRI reported with L5-S1 disc herniation complicating the above -On 11/15/2020 patient had L5-S1 decompression fusion with Dr. Gianfranco Gomez Was complaining of pain at the wound site the patient had the wound inspected it was clean dry and intact dressings were changed (3) Hypertension: Plan: Appears majority of her BP as outpatient are 140 or less - Continue Diltiazem 180 mg PO qam -Hold lisinopril (4) CAD (coronary artery disease): Plan: Non-occlusive disease - CARDIAC CATHETERIZATION 09/01/2017: -- LMCA -- Normal. -- LAD -- Luminal irregularities in the midvessel. -- LCx -- Normal. -- RCA -- Dominant vessel, 20% ostial stenosis, distal luminal irregularities. -- Medical Management Recommended. As above- Continue Rosuvastatin 20mg Po daily ECG is at baseline and no worsening or changing symptoms regading her dyspnea - ECHO-normal EF and no concern for acute changes there is comment of Diastolic Dysfunction type 1, (5) Heart murmur: Plan: echo no comment on significant valvular abnormalities (6) Hyperlipidemia: Plan: As above - previous lipid panel within goals (7) Severe sleep apnea: Plan: Not compliant with CPAP at home - states she has not worn it for years and sent machine back - Follow in house - Would recommend SPO2 monitoring and/or EtCO2 monitoring with increased use of narcotics and sedatives -Continue sleep CPAP at bedtime (8) Restless leg syndrome: Plan: Reduce pre-gablin, continue cautiously ropinirole, continue mirtazipine (9) Diabetes mellitus, type 2: Plan: Change to sliding scale insulin aspart - will hold on adding carb coverage. Follow add on if needed - Goal <180 will be influenced by intraoperative steroids (10) GERD (gastroesophageal reflux disease): Plan: Continue dexolant or equivalnet (11) Hypothyroidism: Plan: Continue Synthroid dosing 100mcg Po Qam (12) Leukocytosis: Plan: improved - stress response likely vs. demanganization. not concern of acute infection (13) Acute anemia: Plan: acute anemia in the post operative setting which could be dilutional , monitor for ongoing changes Admission and Anticipated Discharge Date Admission Date: November 15, 2020 Subjective Overnight the patient had a period of lethargy and hypotension. Attempted volume resuscitation was unsuccessful. Patient was moved to intensive care unit she was found to have acute anemia in the postoperative setting in addition to acute kidney injury over her baseline chronic kidney disease stage III. Patient was given additional volume. In the morning her blood pressure improves her hemoglobin remains about the same in the 8.9 and 9 g range. She is on many antihypertensives and other medications that may affect her blood pressure and lethargy. Some of these which were used to treat. Operative pain now may be slightly too much of a dosing for the patient and these will be reduced. Review of Systems Review of Systems: mid and declining distress and fatigue no headache, no visual changes no speech or swallowing issues no chest pain, pressure or palpitations no shortness of breath, cough or wheezes no abdominal pain, nausea or vomiting, diarrhea or constipation no dysuria, hematuria or frequency no focal joint pain or swelling continues with generalized lower back pain without radiation. less than yesterday no focal signs of weakness or numbness or altered sensation no complaints of anxiety or depression.. Physical Exam Physical Exam: The patient appeared well nourished and normally developed. she is in moderate post operative pain at my visit Vital signs as documented. Head exam is normocephalic atraumatic Neck is without JVD, thyromegaly, or carotid bruits. Lungs are clear to auscultation, no focal loss of breath sounds Cardiac exam, Rhythm is regular.. No murmurs, rubs or gallops. Abdominal exam reveals normal bowel sounds, soft non tender, no masses Extremities are nonedematous and both pedal pulses are present Neurologic exam is alert and oriented, no focal loss of strength or sensation Psychologically is without concerns for anxiety or depression Results & Data Results & Data ([facility]) Vital Signs (Past 12 Hours) Vital Signs Temp Pulse Pulse Pulse Resp BP BP 10/09/21 05:46 98.4 F 74 95 H 23 134/73 11/17/20 01:46 98.4 F 11/17/20 01:11 74 17 80/48 L 11/17/20 00:50 71 18 87/50 L 11/16/20 23:30 68 80/52 L 11/16/20 23:20 70 85/55 L 11/16/20 23:10 77 81/53 L 11/16/20 22:59 79 76/48 L 11/16/20 22:45 82/54 L 11/16/20 22:41 67/51 L 11/16/20 22:06 97.5 F L 70 14 73/46 L Pulse Ox 11/17/20 05:46 11/17/20 01:46 11/17/20 01:11 92 11/17/20 00:50 94 11/16/20 23:30 90 11/16/20 23:20 93 11/16/20 23:10 96 11/16/20 22:59 97 11/16/20 22:45 11/16/20 22:41 11/16/20 22:06 96 PG Care Time/CCT Total # of Minutes Spent Total Time Spent with Patient: Total time spent is greater than 50% in coordination of care (as documented) at patient's floor/unit and/or counseling patient: Coding Level of Care Code 31667 Subseq Hosp Care Lvl 3 Diagnoses Sciatica M54.30 Hypertension I10 CAD (coronary artery disease) I25.10 Heart murmur R01.1 Hyperlipidemia E78.5 Severe sleep apnea G47.30 Restless leg syndrome G25.81 Diabetes mellitus, type 2 E11.9 GERD (gastroesophageal reflux disease) K21.9 Hypothyroidism E03.9 Leukocytosis D72.829 Acute anemia D64.9 Hypotension I95.9
--- NOTE | 2020-11-17 07:57 | Orthopedic Progress Note ---
Date of Service November 17, 2020 Assessment & Plan (1) Sciatica: Plan: Continue GI DVT prophylaxis as well as pain control. Medical management of her hypotension and coexisting comorbidities. When stable may consider discharged home with home care versus rehab. Admission and Anticipated Discharge Date Admission Date: November 15, 2020 Subjective Patient is resting comfortably reports achiness in the back radicular complaints have improved. Physical Exam Physical Exam: Dressings clean dry and intact, abdomen soft nontender calves are supple nontender. Strength and sensation grossly intact. Results & Data ([facility]) Vital Signs (Past 12 Hours) Vital Signs Temp Pulse Pulse Pulse Resp BP BP 11/17/20 05:46 36.9 C 74 95 H 23 134/73 11/17/20 01:46 36.9 C 11/17/20 01:11 74 17 80/48 L 11/17/20 00:50 71 18 87/50 L 11/16/20 23:30 68 80/52 L 11/16/20 23:20 70 85/55 L 11/16/20 23:10 77 81/53 L 11/16/20 22:59 79 76/48 L 11/16/20 22:45 82/54 L 11/16/20 22:41 67/51 L 11/16/20 22:06 36.4 C L 70 14 73/46 L Pulse Ox 11/17/20 05:46 11/17/20 01:46 11/17/20 01:11 92 11/17/20 00:50 94 11/16/20 23:30 90 11/16/20 23:20 93 11/16/20 23:10 96 11/16/20 22:59 97 11/16/20 22:45 11/16/20 22:41 11/16/20 22:06 96 (1) Sciatica Laterality: left Qualified Code(s): M54.32 - Sciatica, left side
[2020-11-17] MEDS: DULoxetine HCL 60 MG CAP PO SCH (08:26)
[2020-11-17] MEDS: OXYBUTYNIN CHLORIDE XL 5 MG TABCR PO SCH (08:27)
[2020-11-17] MEDS: INSULIN HUMAN NPH SC SCH ×2 (08:28→17:50)
[2020-11-17] MEDS: PREGABALIN 75 MG CAP PO SCH ×2 (08:31→20:56)
[2020-11-17] MEDS: INSULIN ASPART 100 UNITS/ML 3 ML PEN SC SCH ×4 (08:34→21:01)
[2020-11-17] MEDS: dilTIAZem HCL 180 MG CAPCR PO SCH (09:53)
--- NOTE | 2020-11-17 09:59 | Electrocardiogram Report ---
Test Reason : Blood Pressure : / mmHG Vent. Rate : 070 BPM Atrial Rate : 070 BPM P-R Int : 132 ms QRS Dur : 098 ms QT Int : 416 ms P-R-T Axes : 044 034 031 degrees QTc Int : 449 ms Normal sinus rhythm Minimal voltage criteria for LVH, may be normal variant Borderline ECG When compared with ECG of 14-NOV-2020 11:54, No significant change was found Confirmed by Leo Ibarra ([id number]) on 11/17/2020 9:58:44 AM Referred By: Gabe Watkins Confirmed By:Leo Ibarra
--- NOTE | 2020-11-17 10:00 | Electrocardiogram Report ---
Test Reason : Blood Pressure : / mmHG Vent. Rate : 068 BPM Atrial Rate : 068 BPM P-R Int : 134 ms QRS Dur : 098 ms QT Int : 424 ms P-R-T Axes : 044 022 020 degrees QTc Int : 450 ms Normal sinus rhythm Moderate voltage criteria for LVH, may be normal variant Borderline ECG When compared with ECG of 16-NOV-2020 22:55, (unconfirmed) No significant change was found Confirmed by Leo Ibarra ([id number]) on 11/17/2020 10:00:23 AM Referred By: Gabe Watkins Confirmed By:Leo Ibarra
--- NOTE | 2020-11-17 11:34 | Pharmacy Report ---
Pharmacy Glycemic Short Note 2 - Date of Service November 17, 2020 - Glycemic Short BSG Results (Last 24 hours): 11/16/20 11/16/20 11/16/20 12:23 18:31 20:33 Glucose POC Glucose 146 H 185 H 175 H 11/16/20 11/17/20 11/17/20 22:46 05:12 07:28 Glucose 138 H 176 H POC Glucose 158 H 11/17/20 11:22 Glucose POC Glucose 170 H OUTPATIENT ANTIDIABETIC REGIMEN: * Amaryl 2 mg PO QAM * Metformin ASSESSMENT: 11/17/20 * Pt has received 65 units of insulin over the past 24hrs * 30 units of basal with NPH * 35 units of bolus with NovoLog * AM fasting BSG slightly above goal range at 158 mg/dl; however, it is trending downwards (236 --> 192 --> 158 today). Will continue current dosing for now. Can increase dosing tomorrow if fasting doesnt continue to trend downwards * Post-prandial BSGs elevated - will tighten CR. 11/15: * Pt received total 38 units of insulin yesterday; 25 units basal + 13 units bolus. * She was receiving Decadron 8 mg IV q8h x 3 doses. Blood sugars have all been elevated since this started. * Fasting BSG today AM = 236 mg/dl. NPH 35 units was given with the IV Decadron today AM. * Post op so far steroids have not been resumed. * Will continue with a lower dose of NPH dose scale BID based on BSG. * Continued Novolog parameters the same as yesterday. 11/14/20: * 65 y/o F admitted for intractable back pain and sciatica. She will probably have surgery tomorrow. Pt with history of Type 2 diabetes managed at home on oral Amaryl and Metformin. Will hold oral anti-diabetic meds while admitted. * Mid-morning BSG was 174 mg/dl. Pharmacy consulted this afternoon. IV Decadron 8 mg q8h x 3 doses ordered this AM but delayed administration until 1600 since admission was delayed. * NPH insulin ordered based on wt and stress of 3 to be given with the IV Decadron 1st dose and then later tonight based on BSG scale. * Novolog ordered based on wt and stress of 2. * Dosing to be adjusted as required this evening. PLAN FOR INPATIENT GLYCEMIC CONTROL: * Hold outpatient oral diabetes medications * Basal insulin * NPH 15 units SQ BID * Bolus insulin: continued * NovoLog per scale ACHS or Q6hrs while NPO * Goal Range: Low 110 mg/dL - High 140 mg/dL * Correction Factor: 20 mg/dL/unit * Nutritional / Prandial insulin per carb ratio of 1 unit per 6 grams CHO consumed PLAN FOR DISCHARGE: * TBD
[2020-11-17] MEDS: oxyCODONE HCL IR 5 MG TAB (IMMEDIATE RELEASE) PO PRN ×2 (16:08→23:35)
[2020-11-17] MEDS: MIRTAZAPINE TAB 15 MG TAB PO SCH (20:56)
[2020-11-17] MEDS: DOCUSATE SODIUM/SENNA 50/8.6MG TAB PO SCH (20:57)
[2020-11-17] MEDS: MONTELUKAST SODIUM 10 MG TABLET PO SCH (20:57)
[2020-11-17] MEDS: ROSUVASTATIN CALCIUM 20 MG TAB PO SCH (20:57)
[2020-11-17] MEDS: rOPINIRole HCL 0.25 MG TABLET PO SCH (21:45)
[2020-11-18] MEDS: ACETAMINOPHEN 500 MG TAB PO PRN ×2 (05:11→18:01)
[2020-11-18] MEDS: POLYETHYLENE (MIRALAX) 17 GM PACK PO SCH ×3 (05:11→17:55)
[2020-11-18] MEDS: LEVOTHYROXINE SODIUM 100 MCG TABLET PO SCH (05:11)
--- NOTE | 2020-11-18 07:20 | Orthopedic Progress Note ---
Date of Service November 18, 2020 Assessment & Plan (1) Sciatica: Plan: Patient stable postop day #3. Were going to continue with mobilization efforts through physical therapy. We will continue with pain control and GI and DVT prophylaxis. She is likely need placement as she has no help at home and will have a social insurance analyst he does not respect Admission and Anticipated Discharge Date Admission Date: November 15, 2020 Subjective Patient was seen bedside in room 382. She is resting comfortably. States that her pain is relatively well controlled. She still has symptoms in her legs has had leg pain for years she denies any other numbness, tingling, or paresthesias. Physical Exam Physical Exam: On exam she is alert and oriented. Her strength and sensation are both intact her abdomen soft nontender calves are supple nontender. Results & Data ([facility]) Vital Signs (Past 12 Hours) Vital Signs Temp Pulse Resp BP Pulse Ox 11/17/20 21:55 37.3 C 88 16 103/62 94 (1) Sciatica Laterality: left Qualified Code(s): M54.32 - Sciatica, left side
[2020-11-18] MEDS: INSULIN HUMAN NPH SC SCH ×3 (09:17→18:02)
[2020-11-18] MEDS: INSULIN ASPART 100 UNITS/ML 3 ML PEN SC SCH ×4 (09:18→21:32)
[2020-11-18] MEDS: CHOLECALCIFEROL 1,000 UNITS 25 MCG TAB PO SCH (09:23)
[2020-11-18] MEDS: DULoxetine HCL 60 MG CAP PO SCH (09:23)
[2020-11-18] MEDS: oxyCODONE HCL IR 5 MG TAB (IMMEDIATE RELEASE) PO PRN ×2 (09:24→15:55)
[2020-11-18] MEDS: OXYBUTYNIN CHLORIDE XL 5 MG TABCR PO SCH (09:24)
[2020-11-18] MEDS: PREGABALIN 75 MG CAP PO SCH ×2 (09:24→20:54)
[2020-11-18] MEDS: dilTIAZem HCL 180 MG CAPCR PO SCH (09:25)
[2020-11-18] MEDS ORDERED: LACTATED RINGER'S 500 ML IV ONE (18:19)
--- NOTE | 2020-11-18 18:29 | Hospitalist Progress Note ---
Date of Service November 18, 2020 Assessment & Plan (1) Hypotension: Plan: Hypertension had resolved with holding her TAYLER inhibitor once again has mild hypotension the evening of 11/18 with another bolus of lactated Ringer's given this may be a pain related medication issue we will continue to follow With a consideration of possible toxic encephalopathy from medications. Her Lyrica dose will be reduced will eliminate her hydromorphone (2) Sciatica: Plan: with uncontrolled outpt radicular pain and some paresthesias that correspond to imaging of severe foraminal stenosis at Left L5 - MRI reported with L5-S1 disc herniation complicating the above -On 11/15/2020 patient had L5-S1 decompression fusion with Dr. Gianfranco Gomez Was complaining of pain at the wound site the patient had the wound inspected it was clean dry and intact dressings were changed 11/17/20 Mild complaints of pain at the wound site continue no radicular complaints No complaints of pain at the anterior compartment and extensor tendons of the left great toe (3) Hypertension: Plan: Appears majority of her BP as outpatient are 140 or less Will discontinue diltiazem his lower blood pressures on the evening of 11/18 -Hold lisinopril (4) CAD (coronary artery disease): Plan: Non-occlusive disease - CARDIAC CATHETERIZATION 09/01/2017: -- LMCA -- Normal. -- LAD -- Luminal irregularities in the midvessel. -- LCx -- Normal. -- RCA -- Dominant vessel, 20% ostial stenosis, distal luminal irregularities. -- Medical Management Recommended. As above- Continue Rosuvastatin 20mg Po daily ECG is at baseline and no worsening or changing symptoms regading her dyspnea - ECHO-normal EF and no concern for acute changes there is comment of Diastolic Dysfunction type 1, (5) Heart murmur: Plan: echo no comment on significant valvular abnormalities (6) Hyperlipidemia: Plan: As above - previous lipid panel within goals (7) Severe sleep apnea: Plan: Not compliant with CPAP at home - states she has not worn it for years and sent machine back - Follow in house - Would recommend SPO2 monitoring and/or EtCO2 monitoring with increased use of narcotics and sedatives -Continue sleep CPAP at bedtime (8) Restless leg syndrome: Plan: Reduce pre-gablin, continue cautiously ropinirole, continue mirtazipine (9) Diabetes mellitus, type 2: Plan: Change to sliding scale insulin aspart - will hold on adding carb coverage. Follow add on if needed - Goal <180 will be influenced by intraoperative steroids (10) GERD (gastroesophageal reflux disease): Plan: Continue dexolant or equivalnet (11) Hypothyroidism: Plan: Continue Synthroid dosing 100mcg Po Qam (12) Leukocytosis: Plan: improved - stress response likely vs. demanganization. not concern of acute infection (13) Acute anemia: Plan: acute anemia in the post operative setting which could be dilutional , monitor for ongoing changes Admission and Anticipated Discharge Date Admission Date: November 15, 2020 Subjective Patient continues with multiple somatic complaints of back pain unable to get comfortable constipation and now some anterior tibial pain which could be from excess use of her leg walking due to her back pain. She is tender along the tenderness course of the great toe and also in the anterior compartment of her leg Review of Systems Review of Systems: Persistent somatic complaints of mild issues no headache, no visual changes no speech or swallowing issues no chest pain, pressure or palpitations no shortness of breath, cough or wheezes no abdominal pain, nausea or vomiting, diarrhea or constipation no dysuria, hematuria or frequency no focal joint pain or swelling continues with generalized lower back pain without radiation. less than yesterday no focal signs of weakness or numbness or altered sensation no complaints of anxiety or depression.. Physical Exam Physical Exam: The patient appeared well nourished and normally developed. she is in moderate post operative pain at my visit Vital signs as documented. Head exam is normocephalic atraumatic Neck is without JVD, thyromegaly, or carotid bruits. Lungs are clear to auscultation, no focal loss of breath sounds Cardiac exam, Rhythm is regular.. No murmurs, rubs or gallops. Abdominal exam reveals normal bowel sounds, soft non tender, no masses Extremities are nonedematous and both pedal pulses are present Tenderness along the extensor tendon of the left great toe and left lower extremity anterior compartment likely from flexing of her leg Neurologic exam is alert and oriented, no focal loss of strength or sensation Psychologically is without concerns for anxiety or depression Results & Data Results & Data ([facility]) Vital Signs (Past 12 Hours) Vital Signs Temp Pulse Resp BP Pulse Ox 11/18/20 16:00 99.5 F 97 H 16 90/53 L 96 11/18/20 07:35 99.0 F 77 18 157/80 H 96 11/18/20 07:25 98.6 F 91 H 20 113/68 92 PG Care Time/CCT Total # of Minutes Spent Total Time Spent with Patient: Total time spent is greater than 50% in coordination of care (as documented) at patient's floor/unit and/or counseling patient: Coding Level of Care Code 23161 Subseq Hosp Care Lvl 2 Diagnoses Hypotension I95.9 Sciatica M54.30 Hypertension I10 CAD (coronary artery disease) I25.10 Heart murmur R01.1 Hyperlipidemia E78.5 Severe sleep apnea G47.30 Restless leg syndrome G25.81 Diabetes mellitus, type 2 E11.9 GERD (gastroesophageal reflux disease) K21.9 Hypothyroidism E03.9 Leukocytosis D72.829 Acute anemia D64.9
[2020-11-18] MEDS: DOCUSATE SODIUM/SENNA 50/8.6MG TAB PO SCH (20:54)
[2020-11-18] MEDS: ROSUVASTATIN CALCIUM 20 MG TAB PO SCH (20:55)
[2020-11-18] MEDS: rOPINIRole HCL 0.25 MG TABLET PO SCH (20:55)
[2020-11-18] MEDS: MIRTAZAPINE TAB 15 MG TAB PO SCH (20:55)
[2020-11-18] MEDS: MONTELUKAST SODIUM 10 MG TABLET PO SCH (20:55)
[2020-11-19] MEDS: oxyCODONE HCL IR 5 MG TAB (IMMEDIATE RELEASE) PO PRN ×2 (01:26→09:36)
[2020-11-19] MEDS: ACETAMINOPHEN 500 MG TAB PO PRN ×2 (02:40→15:41)
[2020-11-19] MEDS: LEVOTHYROXINE SODIUM 100 MCG TABLET PO SCH (05:46)
[2020-11-19] MEDS: CHOLECALCIFEROL 1,000 UNITS 25 MCG TAB PO SCH (09:36)
[2020-11-19] MEDS: DOCUSATE SODIUM/SENNA 50/8.6MG TAB PO SCH ×2 (09:37→21:37)
[2020-11-19] MEDS: DULoxetine HCL 60 MG CAP PO SCH (09:37)
[2020-11-19] MEDS: OXYBUTYNIN CHLORIDE XL 5 MG TABCR PO SCH (09:38)
[2020-11-19] MEDS: INSULIN HUMAN NPH SC SCH ×2 (09:40→18:14)
[2020-11-19] MEDS: INSULIN ASPART 100 UNITS/ML 3 ML PEN SC SCH ×4 (09:42→21:40)
[2020-11-19] MEDS: PREGABALIN 75 MG CAP PO SCH ×2 (09:46→21:44)
[2020-11-19] MEDS: POLYETHYLENE (MIRALAX) 17 GM PACK PO SCH (09:49)
--- NOTE | 2020-11-19 09:53 | Orthopedic Progress Note ---
Date of Service November 19, 2020 Assessment & Plan (1) Sciatica: Plan: This time encourage patient be up and ambulatory as tolerated continue with physical therapy discontinue her drain today. She is obviously planning for SNF for rehab in light of her home situation and slow progress. I do not anticipate that she be able to go home in her current state. Admission and Anticipated Discharge Date Admission Date: November 15, 2020 Subjective Patient complaining of back and bilateral leg pain Physical Exam Physical Exam: Patient is in bed at this time as she has excellent strength testing lower extremities. Sensory appears to be symmetric and intact. Results & Data ([facility]) Vital Signs (Past 12 Hours) Vital Signs Temp Pulse Pulse Resp BP Pulse Ox 11/19/20 07:57 36.5 C 79 16 131/79 96 11/18/20 23:47 36.9 C 80 16 119/73 95
[2020-11-19] MEDS: dexAMETHasone 8 MG in SYRINGE 0 ML IV SCH (12:30)
--- NOTE | 2020-11-19 14:11 | XRay Report ---
LUMBAR SPINE 3 VIEWS CLINICAL HISTORY: Postoperative examination. Spinal fusion surgery. FINDINGS: Three standing views of the lumbar spine are compared to study dated 10/04/2020. A transiti onal lumbar vertebral body will be labeled S1 for the purposes of this examination. The skeletal stru ctures are osteopenic. Vertebral body height and alignment are maintained throughout the lumbar spine . There is postoperative change from discectomy at L5-S1 with laminectomy and posterior fusion at thi s level. Interpedicular screws are in place. The orthopedic hardware appears intact. A surgical drain is noted. There is no radiographic evidence of acute fracture or malalignment. There is mild hyperlo rdosis of the lumbar spine. Small anterior and lateral marginal osteophytes are seen throughout. The transverse processes appear intact. Mild disc space narrowing is seen at the remaining lumbar levels. The bony pelvis is intact as visualized. Cholecystectomy clips are seen in the right upper quadrant. There is no radiographic evidence of high-grade bowel obstruction. Atherosclerotic calcification is noted in the abdominal aorta. IMPRESSION: Osteopenia with postoperative and spondylotic change as above. Dictated: 11/19/2020 12:15 PM Transcribed: 11/19/2020 1:20 PM Natalya [id number] [facility] Electronically signed by: Agustin Elder M.D. 11/19/2020 2:10 PM
--- NOTE | 2020-11-19 19:09 | Hospitalist Progress Note ---
Date of Service November 19, 2020 Assessment & Plan (1) Hypotension: Plan: Hypotension resolved with holding her TAYLER inhibitor once again has mild hypotension the evening of 11/18 with another bolus of lactated Ringer's given this may be a pain related medication issue we will continue to follow. When discharged patient should be on reduced dose of diltiazem and stop lisinopril With a consideration of possible toxic encephalopathy from medications. Her Lyrica dose will be reduced will eliminate her hydromorphone (2) Sciatica: Plan: with uncontrolled outpt radicular pain and some paresthesias that correspond to imaging of severe foraminal stenosis at Left L5 - MRI reported with L5-S1 disc herniation complicating the above -On 11/15/2020 patient had L5-S1 decompression fusion with Dr. Gianfranco Gomez Was complaining of pain at the wound site the patient had the wound inspected it was clean dry and intact dressings were changed 11/17/20 Mild complaints of pain at the wound site continue no radicular complaints No complaints of pain at the anterior compartment and extensor tendons of the left great toe (3) Hypertension: Plan: Appears majority of her BP as outpatient are 140 or less Will discontinue diltiazem his lower blood pressures on the evening of 11/18 -Hold lisinopril (4) CAD (coronary artery disease): Plan: Non-occlusive disease - CARDIAC CATHETERIZATION 09/01/2017: -- LMCA -- Normal. -- LAD -- Luminal irregularities in the midvessel. -- LCx -- Normal. -- RCA -- Dominant vessel, 20% ostial stenosis, distal luminal irregularities. -- Medical Management Recommended. As above- Continue Rosuvastatin 20mg Po daily ECG is at baseline and no worsening or changing symptoms regading her dyspnea - ECHO-normal EF and no concern for acute changes there is comment of Diastolic Dysfunction type 1 (5) Heart murmur: Plan: echo no comment on significant valvular abnormalities (6) Hyperlipidemia: Plan: As above - previous lipid panel within goals (7) Severe sleep apnea: Plan: Not compliant with CPAP at home - states she has not worn it for years and sent machine back -Continue sleep CPAP at bedtime - recommend discontinuation of her diphenhydramine on discharge (8) Restless leg syndrome: Plan: Reduce pre-gablin, continue cautiously ropinirole, continue mirtazapine (9) Diabetes mellitus, type 2: Plan: Change to sliding scale insulin aspart - will hold on adding carb coverage. Follow add on if needed Appreciate pharmacy glycemic management (10) GERD (gastroesophageal reflux disease): Plan: Continue dexolant or equivalnet (11) Hypothyroidism: Plan: Continue Synthroid dosing 100mcg Po Qam (12) Leukocytosis: Plan: improved, trending down - stress response likely vs. demanganization. not concern of acute infection (13) Acute anemia: Plan: acute anemia in the post operative setting which could be dilutional , monitor for ongoing changes Admission and Anticipated Discharge Date Admission Date: November 15, 2020 Subjective No episodes of hypotension. No dizziness or lightheadedness on standing. Review of Systems Review of Systems: All systems reviewed & are unremarkable except as noted in HPI & below Physical Exam Constitutional: WD/WN, vitals as above Respiratory: normal respiratory effort, lungs clear to auscultation Gastrointestinal (Abdomen): normal bowel sounds, soft, nontender, no hepatosplenomegaly Neurologic: moves all extremities and awake; not confused Psychiatric: A+Ox3, euthymic affect Results & Data Results & Data ([facility]) Vital Signs (Past 12 Hours) Vital Signs Temp Pulse Resp BP Pulse Ox 11/19/20 15:48 36.5 C 98 H 16 123/65 94 11/19/20 07:57 36.5 C 79 16 131/79 96 PG Care Time/CCT Total # of Minutes Spent Total Time Spent with Patient: Total time spent is greater than 50% in coordination of care (as documented) at patient's floor/unit and/or counseling patient: Coding Level of Care Code 56885 Inpt Consult Level 3 Diagnoses Hypotension I95.9 Sciatica M54.30 Hypertension I10 CAD (coronary artery disease) I25.10 Heart murmur R01.1 Hyperlipidemia E78.5 Severe sleep apnea G47.30 Restless leg syndrome G25.81 Diabetes mellitus, type 2 E11.9 GERD (gastroesophageal reflux disease) K21.9 Hypothyroidism E03.9 Leukocytosis D72.829 Acute anemia D64.9
[2020-11-19] MEDS: ROSUVASTATIN CALCIUM 20 MG TAB PO SCH (21:35)
[2020-11-19] MEDS: MONTELUKAST SODIUM 10 MG TABLET PO SCH (21:35)
[2020-11-19] MEDS: MIRTAZAPINE TAB 15 MG TAB PO SCH (21:36)
[2020-11-19] MEDS: rOPINIRole HCL 0.25 MG TABLET PO SCH (21:37)
[2020-11-20] MEDS: LEVOTHYROXINE SODIUM 100 MCG TABLET PO SCH (06:36)
[2020-11-20 06:45] LABS: Hematocrit (blood only) 31.7 % (37-47); Hemoglobin 10.5 g/dL (12.0-16.0); Mean Corpuscular Hemoglobin 31.4 pg (25-34); Mean Corpuscular Hgb Conc 33.1 g/dL (32-36); Mean Corpuscular Volume 94.9 fL (80-100); Mean Platelet Volume 11.5 fL (7.4-10.4); Platelet Count 184 K/uL (130-400); RDW Coefficient of Variation 13.9 % (11.5-14.5); RDW Standard Deviation 48.1 fL (36.4-46.3); Red Blood Count 3.34 M/uL (4.2-5.4); White Blood Count 11.81 K/uL (4.8-10.8)
[2020-11-20 07:03] LABS: BUN Creatinine Ratio 18.1 (10-20); Calcium 9.6 mg/dl (8.5-10.1); Est GFR (African American) 65.1 ml/min; Est GFR (Non-African American) 56.2 ml/min; Potassium 4.3 mmol/L (3.5-5.1)
[2020-11-20] MEDS ORDERED: INSULIN HUMAN NPH SC SCH ×2 (08:00→17:00)
--- NOTE | 2020-11-20 09:01 | Orthopedic Progress Note ---
Date of Service November 20, 2020 Assessment & Plan (1) Sciatica: Plan: X-rays demonstrate instrumentation be in place in appropriate alignment. She is improving probably. Plan for discharge either to a [facility] today or home. Admission and Anticipated Discharge Date Admission Date: November 15, 2020 Subjective Back pain controlled leg pain improved Physical Exam Physical Exam: Patient appears comfortable is good strength testing. Results & Data ([facility]) Vital Signs (Past 12 Hours) Vital Signs Temp Pulse Pulse Resp BP Pulse Ox 11/20/20 07:37 36.7 C 78 16 123/76 95 11/19/20 23:47 36.7 C 77 15 122/73 96 (1) Sciatica Laterality: left Qualified Code(s): M54.32 - Sciatica, left side
[2020-11-20] MEDS: INSULIN ASPART 100 UNITS/ML 3 ML PEN SC SCH ×2 (09:25→13:13)
[2020-11-20] MEDS: dexAMETHasone 8 MG in SYRINGE 0 ML IV SCH (09:27)
[2020-11-20] MEDS: DOCUSATE SODIUM/SENNA 50/8.6MG TAB PO SCH (09:27)
[2020-11-20] MEDS: OXYBUTYNIN CHLORIDE XL 5 MG TABCR PO SCH (09:36)
[2020-11-20] MEDS: CHOLECALCIFEROL 1,000 UNITS 25 MCG TAB PO SCH (09:37)
[2020-11-20] MEDS: POLYETHYLENE (MIRALAX) 17 GM PACK PO SCH (09:37)
[2020-11-20] MEDS: DULoxetine HCL 60 MG CAP PO SCH (09:37)
[2020-11-20] MEDS: PREGABALIN 75 MG CAP PO SCH (09:46)
--- NOTE | 2020-11-20 12:32 | Pharmacy Report ---
Pharmacy Glycemic Short Note 2 - Date of Service November 20, 2020 - Glycemic Short BSG Results (Last 24 hours): 11/19/20 11/19/20 11/20/20 17:27 20:45 06:03 Glucose 249 H POC Glucose 269 H 290 H 11/20/20 11/20/20 07:56 12:00 Glucose POC Glucose 260 H 311 H* OUTPATIENT ANTIDIABETIC REGIMEN: * Amaryl 2 mg PO QAM * Metformin ASSESSMENT: 11/20/20: * Patient's BSGs had been quite well-controlled, however, pt was started on a course of IV DXM yesterday. * Pt did not receive adequate coverage for high-dose steroids yesterday, and as a result has been significantly hyperglycemic. * NPH increased this morning to provide additional coverage for steroids. * Novolog parameters have also been tightened. * Will continue to follow and adjust as required. 11/17 * Pt has received 65 units of insulin over the past 24hrs * 30 units of basal with NPH * 35 units of bolus with NovoLog * AM fasting BSG slightly above goal range at 158 mg/dl; however, it is trending downwards (236 --> 192 --> 158 today). Will continue current dosing for now. Can increase dosing tomorrow if fasting doesnt continue to trend downwards * Post-prandial BSGs elevated - will tighten CR. 11/15: * Pt received total 38 units of insulin yesterday; 25 units basal + 13 units bolus. * She was receiving Decadron 8 mg IV q8h x 3 doses. Blood sugars have all been elevated since this started. * Fasting BSG today AM = 236 mg/dl. NPH 35 units was given with the IV Decadron today AM. * Post op so far steroids have not been resumed. * Will continue with a lower dose of NPH dose scale BID based on BSG. * Continued Novolog parameters the same as yesterday. 11/14/20: * 65 y/o F admitted for intractable back pain and sciatica. She will probably have surgery tomorrow. Pt with history of Type 2 diabetes managed at home on oral Amaryl and Metformin. Will hold oral anti-diabetic meds while admitted. * Mid-morning BSG was 174 mg/dl. Pharmacy consulted this afternoon. IV Decadron 8 mg q8h x 3 doses ordered this AM but delayed administration until 1600 since admission was delayed. * NPH insulin ordered based on wt and stress of 3 to be given with the IV Decadron 1st dose and then later tonight based on BSG scale. * Novolog ordered based on wt and stress of 2. * Dosing to be adjusted as required this evening. PLAN FOR INPATIENT GLYCEMIC CONTROL: * Hold outpatient oral diabetes medications * Basal insulin * NPH 35 units SQ qAM -- while receiving IV DXM (this dose should be held/reduced if DXM is discontinued) * NPH 18 units SQ qPM * Bolus insulin: continued * NovoLog per scale ACHS or Q6hrs while NPO, plus 0000 and 0400 until hyperglycemia has resolved * Goal Range: Low 110 mg/dL - High 140 mg/dL * Correction Factor: 20 mg/dL/unit * Nutritional / Prandial insulin per carb ratio of 1 unit per 5 grams CHO consumed PLAN FOR DISCHARGE: * A1c: 8.2% * This indicates suboptimal glycemic control as an outpt. A reasonable A1C goal for many non- adults is A1c less than 7%, however, less stringent A1c goals (less than 8%) may be appropriate for patients with extensive comorbid conditions. * Patient currently on oral monotherapy. Consider dual combination therapy with Metformin if no contraindications exist (looks like patient's renal function may not make her a great candidate for metformin). * Consider switching patient to therapy with an SGLT2i with evidence of reducing HF and/or CKD progression (e.g. empagliflozin) or a GLP-1 RA with proven CVD benefit (e.g. liraglutide) * If patient is to be discharged with ongoing steroid therapy, she would likely benefit from NPH to help cover steroid-induced hyperglycemia. * More to follow as admission progresses.
--- NOTE | 2020-11-20 12:33 | Hospitalist Progress Note ---
Date of Service November 20, 2020 Assessment & Plan (1) Hypotension: Plan: Hypotension resolved with holding her TAYLER inhibitor once again has mild hypotension the evening of 11/18 with another bolus of lactated Ringer's given this may be a pain related medication issue we will continue to follow. When discharged patient should stop diltiazem and lisinopril With a consideration of possible toxic encephalopathy from medications. Her Lyrica dose will be reduced will eliminate her hydromorphone (2) Sciatica: Plan: with uncontrolled outpt radicular pain and some paresthesias that correspond to imaging of severe foraminal stenosis at Left L5 - MRI reported with L5-S1 disc herniation complicating the above -On 11/15/2020 patient had L5-S1 decompression fusion with Dr. Gianrfanco Gomez Was complaining of pain at the wound site the patient had the wound inspected it was clean dry and intact dressings were changed 11/17/20 Mild complaints of pain at the wound site continue no radicular complaints No complaints of pain at the anterior compartment and extensor tendons of the left great toe (3) Hypertension: Plan: Appears majority of her BP as outpatient are 140 or less Will discontinue diltiazem his lower blood pressures on the evening of 11/18 -Hold lisinopril (4) CAD (coronary artery disease): Plan: Non-occlusive disease - CARDIAC CATHETERIZATION 09/01/2017: -- LMCA -- Normal. -- LAD -- Luminal irregularities in the midvessel. -- LCx -- Normal. -- RCA -- Dominant vessel, 20% ostial stenosis, distal luminal irregularities. -- Medical Management Recommended. As above- Continue Rosuvastatin 20mg Po daily ECG is at baseline and no worsening or changing symptoms regading her dyspnea - ECHO-normal EF and no concern for acute changes there is comment of Diastolic Dysfunction type 1 (5) Heart murmur: Plan: echo no comment on significant valvular abnormalities (6) Hyperlipidemia: Plan: As above - previous lipid panel within goals (7) Severe sleep apnea: Plan: Not compliant with CPAP at home - states she has not worn it for years and sent machine back -Continue sleep CPAP at bedtime - recommend discontinuation of her diphenhydramine on discharge (8) Restless leg syndrome: Plan: Reduce pre-gablin, continue cautiously ropinirole, continue mirtazapine (9) Diabetes mellitus, type 2: Plan: Change to sliding scale insulin aspart - will hold on adding carb coverage. Follow add on if needed Appreciate pharmacy glycemic management (10) GERD (gastroesophageal reflux disease): Plan: Continue dexolant or equivalnet (11) Hypothyroidism: Plan: Continue Synthroid dosing 100mcg Po Qam (12) Leukocytosis: Plan: improved, trending down - stress response likely vs. demanganization. not concern of acute infection (13) Acute anemia: Plan: acute anemia in the post operative setting which could be dilutional , monitor for ongoing changes Admission and Anticipated Discharge Date Admission Date: November 15, 2020 Subjective No acute concerns or questions. No ongoing dizziness now off all her blood pressure meds. Review of Systems Review of Systems: All systems reviewed & are unremarkable except as noted in HPI & below Physical Exam Constitutional: WD/WN, vitals as above Respiratory: normal respiratory effort, lungs clear to auscultation Gastrointestinal (Abdomen): normal bowel sounds, soft, nontender, no hepatosplenomegaly Neurologic: moves all extremities and awake; not confused Psychiatric: A+Ox3, euthymic affect Results & Data Results & Data ([facility]) Vital Signs (Past 12 Hours) Vital Signs Temp Pulse Resp BP Pulse Ox 11/20/20 07:37 36.7 C 78 16 123/76 95 PG Care Time/CCT Total # of Minutes Spent Total Time Spent with Patient: Total time spent is greater than 50% in coordination of care (as documented) at patient's floor/unit and/or counseling patient: Coding Level of Care Code 97763 Subseq Hosp Care Lvl 1 Diagnoses Hypotension I95.9 Sciatica M54.30 Hypertension I10 CAD (coronary artery disease) I25.10 Heart murmur R01.1 Hyperlipidemia E78.5 Severe sleep apnea G47.30 Restless leg syndrome G25.81 Diabetes mellitus, type 2 E11.9 GERD (gastroesophageal reflux disease) K21.9 Hypothyroidism E03.9 Leukocytosis D72.829 Acute anemia D64.9
--- NOTE | 2020-11-20 13:03 | Discharge Summary ---
Date of Service November 20, 2020 Admission HPI Per Admitting Provider Is a pleasant 65-year-old female with a history of chronic back and "sciatic pain. This has been managed over the years with conservative treatment including pain management injections by Dr. Watkins. More recently her pain changed over the past week. It has been quite uncontrollable. She was in the ER a few days ago for above-mentioned complaints. This morning she underwent an MRI with follow-up with Dr. Watkins for pain management who then called an ambulance and referred her here for further evaluation. Pain is band across the lumbar spine down the left leg, no specific pattern. Right lower extremities asymptomatic. Denies bowel or bladder changes. She states for the past week the pain has been so severe she is requiring a walker for ambulation at home. She has been taking Tylenol, ibuprofen and oxycodone with Benadryl for pain control over the past week. Principal Diagnosis Lumbar spinal stenosis with radiculopathy Discharge Data Allergies Allergy/AdvReac Type Severity Reaction Status Date / Time ketorolac [From Toradol] Allergy Severe throat Verified 11/14/20 12:06 swelling morphine Allergy Mild severe Verified 11/14/20 12:06 back pain, stomach pain propoxyphene Allergy Mild itchy,RASH Verified 11/14/20 12:06 hydrocodone AdvReac Mild ITCH Verified 11/14/20 12:06 hydromorphone AdvReac Mild itchy Verified 11/14/20 12:06 oxycodone AdvReac Mild itchy Verified 11/14/20 12:06 tramadol AdvReac Mild ITCH Verified 11/14/20 12:06 acetaminophen AdvReac Unknown PT NOT Verified 11/14/20 12:06 [From Darvocet-N] SUPPOSED TO TAKE DUE TO LIVER ISSUES Consultations 11/14/20 10:40 Consult Anesthesiology Routine Consult Internal Medicine Routine Procedures Performed Operation Date: 11/15/20 10:05 Actual Procedures p L5-S1 Decompression Fusion, Spinal Cord Monitoring(Not Applicable) - Saleem Gomez DO Ordered Studies 11/15/20 10:05 FL lumbar spine 2-3V Routine Hospital Course (1) Sciatica: Patient with lumbar decompression fusion [place] posting orthopedic for possibly. Postop day 1 she was up and ambulating progressed postop day or 2 and 3 she did progress slowly but became more more independent. SAMINA drain decreased probably. Pain well controlled. Strength intact. Subsequently discharged home. Discharge orders instructions from the chart for further review. Total Time Total Time Spent Total Time Spent (In Minutes): 20 minutes Discharge Plan Discharge Items Patient Disposition: Home - Home Health Services Reason For Visit: HNP L5-S1 WITH INTRACTABLE BACK PAIN Discharge Diagnosis: Lumbar disc condition with radiculopathy Activity: As commented below Non-emergency contact: Primary Care Provider Call non-emergency contact if: you have any medication questions Follow-up/Referrals: Maxim Renee MD [Primary Care Provider] - Saleem Gomez DO [Surgeon] - Diet: Regular Addtl Attending Provider Instructions: ACTIVITY RECOMMENDATIONS: SELF CARE INSTRUCTIONS AFTER THORACIC/LUMBAR FUSIONS 1. You may walk to your tolerance. It is good exercise for your legs and back. Expect some back and intermittent leg aches and pains. 2. You may perform "counter-top" level activities (make a sandwich, [place] with a project, etc.). 3. No bending or lifting of more than 10 pounds or back twisting of any nature (roll like a log when turning in bed). 4. You may ride in a car for 20-30 minutes at a time. No driving until after your first visit with your doctor. 5. Frequent changes of position and restricting sitting to 30 minutes at a time will help limit the amount of back spasms and stiffness you may experience. 6. You may discontinue the use of ambulatory aids (cane, crutches, etc.) once your strength and confidence allow. 7. You may administrative dietitian the shower and let water strike your incision when you arrive home at least once daily. Do not take a tub bath, sit in a hot tub or go into a swimming pool until after your first recheck in the office. SPECIAL CARE INSTRUCTIONS: VERY IMPORTANT TO READ AND REVIEW A. Your surgical incision has been closed with a cosmetic suture under the skin that will dissolve in about 6 weeks. In 14 days, you can use a pair of clean scissors and cut the suture that is left outside of the skin at the ends of your incision. 1. The small skin tapes can be removed 7 days after surgery if they have not fallen off by that point. 2. You may keep the wound open to air as much as possible to promote healing after post-op day number 5 unless told otherwise by your doctor. 3. If you think the wound looks like it is becoming infected (redness or worsening drainage) and/or you are experiencing fever, chill or worsening back pain and muscle spasms, contact the office so that we may evaluate you as soon as possible. B. Complications are uncommon, but please contact us if you have any signs or symptoms of: 1. wound infection (fever higher than 102.5 degrees F, redness, separation of wound, drainage, or increasing pain from the incision) 2. blood clots in legs (pain, swelling, redness and warmth in legs) 3. urinary tract infection (fever higher than 102.5 degrees F, burning upon urination or increased frequency of urination) 4. nerve problems (inability to walk on your toes or heels, numbness, loss of bowel or bladder control) 5. any other symptoms that concern you C. Please call the office at if you have any concerns or questions about your operation or recovery. D. No smoking! Smoking drastically decreases the chance of a solid fusion. E. Do not take any anti-inflammatory medications (Indocin, Advil, Motrin, Aspirin, Naprosyn, etc.) as these may inhibit the chance of a solid fusion. Tylenol is okay to take for pain. MANAGING PAIN AFTER SPINAL SURGERY 1. Narcotic medication is intended for short-term use and will be provided for surgical pain. Surgical pain usually lasts for a period of 4-6 weeks. Narcotic medication includes Percocet, Vicodin, Darvocet, Tylenol #3 or Lortab. 2. Longer-term pain is more appropriately treated with non-narcotic medication such as Tylenol ES. 3. Muscle spasm is not appropriately treated with narcotics. Muscle relaxers such as Soma, Flexeril or Skelaxin can be used along with Tylenol ES. 4. Remember that we all live with some "aches and pains". This is not unusual or uncommon after an injury or as we get older. a. Back pain is expected and may include muscle spasms for 4 to 6 weeks after surgery. The pain should gradually improve. If the pain worsens for no apparent reason, please contact the office. b. Intermittent leg pain may also be experienced and should not be concerned about unless it worsens for no apparent reason. If so, please contact the office. 5. We will provide appropriate medication within the normal guidelines of their prescribed use. We will also be very cautious and aware of potential abuse and extended duration of patients' medication needs. a. Pain medications are for your comfort and to assist with sleep and rest so that the tissue can heal. They are not provided in order to return to normal activity and should not be used through the day. To do so or worsening pain at night can result from ongoing tissue damage and development of tolerance to the prescribed medicine. 6. Please allow 2-3 days to process refills. Prescriptions will not be mailed but must be picked up at the office. FOLLOW UP VISIT: Keep your scheduled follow-up appointment. Any questions, please call the office at . Addtl [employer] Provider Instructions: Medicine consult: Hypotension - diltiazem and lisinopril discontinued, blood pressure now stable. Metabolic encephalopathy - discontinued diphenhydramine at night and reduced Lyrica to 75mg PO BID with resolution of symptoms. Diabetes - HbA1C above goal 8.2. Managed with insulin as inpatient due to steroid use. Recommend continuing usual meds on discharge but follow up with PCP for continued optimization. Pending Studies at Discharge: No Stand-Alone Forms: My [employer], Smoking Cessation Medications and DC Order Prescriptions: New tramadol 50 mg tablet 50 mg PO Q6H PRN (Reason: pain, moderate) Qty: 30 RF: 0 oxycodone 5 mg tablet 5 mg PO Q6H PRN (Reason: pain, severe) Qty: 30 RF: 0 pregabalin [Lyrica] 75 mg Capsule 75 mg PO BID Qty: 60 RF: 0 Continued montelukast 10 mg tablet 10 mg PO HS Qty: 90 RF: 1 mirtazapine 7.5 mg tablet 7.5 mg PO HS Qty: 90 RF: 3 rosuvastatin 20 mg tablet 20 mg PO HS Qty: 90 RF: 3 ropinirole 0.25 mg tablet 1 mg PO HS Qty: 120 RF: 5 duloxetine 30 mg capsule,delayed release(DR/EC) 60 mg PO QAM Qty: 60 RF: 5 Denavir 1 % cream 1 applic topical Q2H 4 Days Qty: 5 RF: 5 Dexilant 60 mg capsule,biphase delayed releas 60 mg PO QAM PRN (Reason: Heartburn) RF: 0 cholecalciferol (vitamin D3) [Vitamin D3] 1,000 unit Capsule 1,000 unit PO QAM RF: 0 oxycodone 5 mg tablet 5 mg PO Q6H PRN (Reason: pain) Qty: 10 RF: 0 oxybutynin chloride 15 mg tablet extended release 24 hr 15 mg PO QAM RF: 0 allopurinol 100 mg tablet 100 mg PO QAM RF: 0 glimepiride 2 mg tablet 2 mg PO QAM RF: 0 levothyroxine [Euthyrox] 100 mcg tablet 100 mcg PO QAM RF: 0 clotrimazole-betamethasone 1-0.05 % cream 1 applic topical BID RF: 0 lidocaine 5 % adhesive patch,medicated 1 patch TOP DAILY PRN (Reason: pain) Qty: 15 RF: 0 acetaminophen 500 mg Capsule 1,000 mg PO Q6H PRN (Reason: Pain) RF: 0 Discontinued lisinopril 30 mg tablet 30 mg PO QAM Qty: 90 RF: 3 pregabalin 150 mg capsule 150 mg PO TID Qty: 90 RF: 5 diltiazem HCl [Tiadylt ER] 240 mg capsule,extended release 24 hr 240 mg PO QAM RF: 0 meloxicam 15 mg Tablet 15 mg PO QAM RF: 0 diphenhydramine HCl [Benadryl] 25 mg Capsule 25 mg PO HS RF: 0 ibuprofen 200 mg Tablet 400 mg PO Q6H PRN (Reason: Pain) RF: 0 Discharge Orders: Discharge Order (Routine); Ordered 11/20/20 Ordered By: Saleem Gomez Admission Data Admit Date/Time: 11/15/20 13:01 Attending Provider: Saleem Gomez Admit Provider: Saleem Gomez Primary Care Provider: Maxim Renee. Other Providers: Natalie Leigh ; Nkechi Cao ; Britt Harmon ; Cecelia Wright ; Natasha Durbin ; Wilner Burnett ; Mani Sexton ; Ryan Moore ; Nash Kahn ; Shani Kahn ; Krishna Monte ; Sarika Garay ; Remi Sutherland ; Dilan Bowens ; Lui Savage ; Kayden Eubanks ; Yvonne Ellington E ; Moose Hunt A ; Lizette Phillip H ; Kassi Hunt ; Ehsan Solares ; Minda Garza ; Carlos Eduardo Trujillo ; Silvana Coronel ; Keyana Butler ; Minda Kilgore. ; Isis Triplett ; Hung P[place] ; Portia Bazan ; Alejandra Figueroa ; Ela Miranda ; Amber Alvarenga A ; Joe Alvarenga V ; Bharat Weinberg ; Nkechi Elizondo ; Carlos Alberto Albert ; Urszula Nicholson ; Janel Maldonado ; Joe Carias ; Tone Ellington ; Luis Awan ; Clara Gleason ; Melba Luz ; Joe Albert. ; Ela Talamantes ; Johan Everett ; Robin Eubanks ; Ani Chow ; Charli Chan ; Handy Sosa ; Luisito Lopez ; Osvaldo Redding ; Charli oCnde ; Wilner Dickens Jr ; Alana Haney ; Marshal Sparrow ; Kassi Ro ; Zac Beatty ; Uziel Garduno ; Kwabena Villa ; Luis Triplett ; Agustin Waldrop ; Susanna Manzo ; Minda Gregory ; Chan Arevalo ; Sarika Reyes ; Portia Grullon ; Beau Gonzalez ; Evan Tai ; Joel Cheema ; Kassi Loyd ; Gabe Brothers ; [place] ; Charli Penn ; Roderick Perla. ; Krishna Peña ; Maia Morgan ; Johan Cartwright ; Sarika Vega ; Renzo Navarrete ; Ethan Castano ; Pauline Molina ; [place] ; [facility]
[2020-11-21] MEDS ORDERED: INSULIN ASPART 100 UNITS/ML 3 ML PEN SC SCH
[2020-11-21] MEDS ORDERED: allopurinoL 100 MG TAB PO SCH (09:00)
== END 2020-11-20 18:19 | disposition home or self-care (01) ==
LOC: ED 09:04 → 3N 09:04 → 1E 11-16 23:01 → 3N 11-17 11:42

== ENCOUNTER 2021-12-19 18:28 | Observation (INO) ==
[2021-12-19 19:30] LABS: Basophils # (auto) 0.01 K/uL (0-0.2); Basophils % (auto) 0.1 %; Eosinophils # (auto) 0.01 K/uL (0-0.50); Eosinophils % (auto) 0.1 %; Hematocrit (blood only) 37.3 % (34.1-44.9); Hemoglobin 12.7 g/dl (12.0-16.0); Immature Granulocytes # (auto) 0.04 K/uL (0.00-0.02); Immature Granulocytes % (auto) 0.3 %; Lymphocytes # (auto) 0.84 K/uL (1.2-3.4); Lymphocytes % (auto) 7.2 %; Mean Corpuscular Hemoglobin 31.5 pg (25.0-34.0); Mean Corpuscular Volume 92.6 fL (80.0-100.0); Monocytes # (auto) 0.54 K/uL (0.24-0.82); Monocytes % (auto) 4.7 %; Neutrophils # (auto) 10.15 K/uL (1.4-6.5); Neutrophils % (auto) 87.6 %; Platelet Count 160 K/uL (130-400); RDW Coefficient of Variation 14.6 % (11.5-14.5); RDW Standard Deviation 49.2 fL (36.4-46.3); Red Blood Count 4.03 M/uL (3.93-5.22); White Blood Count 11.59 K/ul (4.8-10.8)
[2021-12-19 19:51] LABS: Appearance Urine Cloudy (Clear); Bacteria Urine Automated 1+ (Negative); Bilirubin Urine Negative (Negative); Blood Urine Negative (Negative); Color Urine Yellow; Epithelial Cell Urine Auto >30 /lpf (0-5); Glucose Urine UA Negative (Negative); Ketones Urine Negative (Negative); Leukocyte Esterase Urine 2+ (Negative); Nitrite Urine Negative (Negative); Protein Urine 1+ (Negative); RBC Urine Automated 0-4 /hpf (0-4); Specific Gravity Urine 1.021 (1.000-1.030); Urobilinogen Urine Negative (Negative); WBC Urine Automated >30 /hpf (0-5)
[2021-12-19 20:07] LABS: Influenza A virus by PCR Negative (Neg); Influenza B virus by PCR Negative (Neg); RSV by PCR Negative (Neg); SARS CoV2 RNA(COVID-19)Cepheid NEGATIVE (Negative)
[2021-12-19 20:09] LABS: Alanine Aminotransferase 12 U/L (7-52); Albumin Globulin Ratio 1.1 (0.9-2); Albumin Level 4.1 gm/dl (3.4-5.0); Alkaline Phosphatase 68 U/L (34-104); Anion Gap 9 (3-11); Aspartate Aminotransferase 17 U/L (13-39); Bilirubin,Total 0.7 mg/dl (0.2-1.0); Blood Urea Nitrogen 14 mg/dl (6-23); Calcium 9.5 mg/dl (8.5-10.1); Carbon Dioxide 24 mmol/L (21-32); Chloride 104 mmol/L (98-107); Est GFR (African American) 61.1 ml/min; Est GFR (Non-African American) 52.7 ml/min; Globulin 3.7 gm/dl (2.5-4.0); Glucose 137 mg/dl (70-99(Fasting)); Potassium 4.2 mmol/L (3.5-5.1); Sodium 137 mmol/L (136-145); Total Protein 7.8 gm/dl (6.0-8.3)
[2021-12-19] MEDS ORDERED: SODIUM CHLORIDE 0.9% 1000ML 500 ML IV ONE (21:00)
[2021-12-19] MEDS ORDERED: ACETAMINOPHEN 500 MG TAB PO STA (21:00)
[2021-12-19] MEDS ORDERED: ONDANSETRON INJ 2 MG/ML 2 ML VIAL IV STA (21:00)
[2021-12-19] MEDS ORDERED: cefTRIAXone SODIUM 2,000 MG/70 ML BAG IV STA (21:00)
[2021-12-19] MEDS ORDERED: ALBUTEROL HFA 8 GM INHALER INH ONE (21:42)
--- NOTE | 2021-12-19 21:49 | Emergency Department Note ---
Impression & Plan Flu-like symptoms, Acute sore throat, Productive cough, Acute UTI (urinary tract infection), Myalgia ED Provider Note INFORMANT: Patient ED PROVIDER(S): Robin Avila MD CHIEF COMPLAINT: Flulike symptoms PLAN: Disposition: Admitted Condition: Good Outpatient prescription management: none Referral: None MEDICAL DECISION MAKING: Patient presented with flulike symptoms. Chest x-ray performed and did not reveal any acute findings. She had a mild leukocytosis on CBC. Chemistry panel was unremarkable. Urinalysis was concerning for infection. Patient had a negative COVID, flu, and RSV test. She was treated with normal saline, Zofran, Tylenol, and Rocephin due to the UTI, white blood count, and nausea. Patient was reassessed and was still feeling poorly. She did not feel safe going home. I discussed further management in the hospital and patient was in agreement. Bio fire test was ordered. Consultation was made with Dr. Marshal Sparrow of the [facility] service. Patient was evaluated in the ER for further management. Triage Nursing notes reviewed and agree them. Vital Signs: reviewed and remarkable for mild tachycardia Differential diagnosis: Viral syndrome, infection, dehydration, metabolic abnormality, hypo/hyperglycemia, electrolyte disturbance, cardiac sources, toxicologic, neurologic, as well as other pathologies. Diagnostics interpreted by me: ECG: none Cardiac Monitoring: none Imaging studies: Chest x-ray. Findings: A chest x-ray was performed and revealed no pneumothorax, effusion, infiltrate, pulmonary edema, free air under the diaphragm, or wide mediastinum. Impression: No acute disease. HPI: The patient is a 66year old female who presents to the Emergency Room with complaints of flulike symptoms. This started yesterday and is worsening today. The patient also notes the following associated symptoms, productive cough, sore throat, poor p.o. intake, diffuse myalgias, nausea, feeling feverish and chilled, back pain, urinary frequency. The patient has found no relieving factors. Current pain is rated as 10/10 regarding the whole body myalgias. Pt denies LOC, headache, diaphoresis, visual changes, neck stiffness, chest pain, breathing difficulties, vomiting, abdominal pain, melena, hematochezia, urinary symptoms, numbness, weakness, lymphadenopathy, rash, or other complaints. ROS: See above HPI for pertinent positives & negatives. A total of 10 systems reviewed and were otherwise negative. PAST MEDICAL HISTORY:See Below , diabetes PAST SURGICAL HISTORY:See Below, FAMILY HISTORY:See Below SOCIAL HISTORY:See Below, non-smoker HOME MEDICATIONS:See Below ALLERGIES:See Below VITALS:See Below PHYSICAL EXAMINATION: GENERAL: Awake, alert, uncomfortable and mildly ill-appearing, in no distress HENT: Normocephalic, atraumatic. Oropharynx unremarkable except for minimal posterior erythema. Nasal congestion present. EYES: Normal conjunctiva. Sclera non-icteric. NECK: Inspection normal. Non-tender. Supple. No nuchal rigidity. FROM. No masses. RESPIRATORY: Clear to auscultation. No wheezes. No rales. Normal respiratory effort. CARDIAC: Borderline tachycardic rate. Normal rhythm. No murmurs. No rubs. Extremities warm and well perfused. Pulses equal. No JVD. GI: Soft, non-distended. No tenderness to palpation. No rebound or guarding. No masses. MUSCULOSKELETAL: Atraumatic. Diffuse muscle tenderness. Chest examination reveals no tenderness. The back is symmetrical on inspection without obvious abnormality. There is no CVA tenderness to palpation. No joint edema. LOWER EXTREMITIES: Calves are equal size bilaterally. No edema. No discoloration. NEURO: Normal sensorium. No sensory or motor deficits noted. SKIN: No rash or jaundice noted. Robin Avila MD Past Med/Surg History Medical History (Updated 12/19/21 @ 21:49 by Robin Avila MD) Anemia CAD (coronary artery disease) Carpal tunnel syndrome Chronic back pain GETS INJECTIONS Congestive heart failure, unspecified (02/21/12) Depression Diabetes mellitus, type 2 niddm Enlarged liver Fibromyalgia GERD (gastroesophageal reflux disease) Goiter, unspecified (02/21/12) Gout Hyperlipidemia Hypertension Hypothyroidism Intestinal infection due to Clostridium difficile (02/21/12) Lymphedema Morbid obesity with BMI of 40.0-44.9, adult Osteoarthritis Pulmonary nodules Restless leg syndrome Sacroiliitis, not elsewhere classified (02/21/12) Sinusitis Sleep apnea cpap (non-compliant) SOB (shortness of breath) on exertion Spinal stenosis Temporomandibular joint disorder HX RIGHT SIDE-S/P PT/IMPROVED Urinary incontinence Urinary incontinence Vitamin D deficiency Surgical History (Updated 09/10/21 @ 10:10 by Maixm Renee MD) History of appendectomy History of cardiac cath 09/01/2017 @ [facility] by Dr. Russo--follows with Trever Andrade History of carpal tunnel release right hand History of section x2 History of cholecystectomy History of colonoscopy History of dilatation and curettage History of esophagogastroduodenoscopy (EGD) History of tooth extraction wisdom teeth History of total abdominal hysterectomy and bilateral salpingo-oophorectomy S/P epidural steroid injection S/P lumbar fusion 11/15/2020-L5-S1 decompression and fusion-Dr. Gomez Status post right foot surgery Family History (Updated 09/10/21 @ 10:11 by Maxim Renee MD) Father Family history of diabetes mellitus Diabetes Lung cancer Lung disease Heart disease Grandmother (Maternal) Family hx of colon cancer Mother Hypertension Kidney disease Other Colorectal cancer Denies family history of Ovarian cancer Prostate cancer Breast cancer Social History (Updated 09/10/21 @ 10:11 by Maxim Renee MD) Smoking Status: Never smoker Second Hand Exposure: Yes; Hx Alcohol Use: Yes Alcohol type: hard liquor Alcohol Intake Frequency: Monthly or Less Hx Substance Use: No Preferred Language: Qatari Communication Ability: Effective Visual Impairment: Limited Hearing Ability: Hard of Hearing Sql Programmer Required: No Beliefs That Will Affect Care: None marital status: Current Living Situation: Alone current occupational status: retired current occupation: used to work multiple jobs Feels Safe at Home: Yes Childhood Exposure to Second-Hand Smoke: Yes caffeine: Yes during the past year weight has: remained stable Dental Care, Regularly: No Physical Activity Frequency: Does not Exercise Seatbelt Use: always Sunscreen Use: No Assistive Devices: Walker Allergies Allergies Allergy/AdvReac Type Severity Reaction Status Date / Time ketorolac [From Toradol] Allergy Severe throat Verified 12/19/21 22:53 swelling morphine Allergy Severe severe Verified 12/19/21 22:53 back pain, stomach pain propoxyphene Allergy Intermediate itchy,RASH Verified 12/19/21 22:53 hydrocodone AdvReac Intermediate ITCH Verified 12/19/21 22:53 hydromorphone AdvReac Intermediate itchy Verified 12/19/21 22:53 oxycodone AdvReac Intermediate itchy Verified 12/19/21 22:53 tramadol AdvReac Intermediate ITCH Verified 12/19/21 22:53 acetaminophen AdvReac Unknown PT NOT Verified 12/19/21 22:53 [From Beau] SUPPOSED TO TAKE DUE TO LIVER ISSUES Home Meds Home Medications Medication Instructions Recorded Confirmed clotrimazole-betamethasone 1 1 applic topical BID PRN Skin 10/10/20 12/19/21 %-0.05 % topical cream Irritation acetaminophen 500 mg capsule 1,000 mg PO Q6 PRN Pain 11/14/20 12/19/21 cholecalciferol (vitamin D3) 25 2,000 unit PO QAM 10/25/21 12/19/21 mcg (1,000 unit) capsule (Vitamin D3) clonidine HCl 0.1 mg tablet 0.1 mg PO BID 12/13/21 12/19/21 diphenhydramine HCl 25 mg capsule 25 mg PO TID PRN as directed 12/13/21 12/19/21 (Benadryl) duloxetine 60 mg capsule,delayed 60 mg PO DAILY 12/13/21 12/19/21 release ibuprofen 800 mg tablet 800 mg PO TID 12/13/21 12/19/21 indomethacin 25 mg capsule 25 mg PO TID 12/13/21 12/19/21 meclizine 25 mg tablet 25 mg PO DAILY PRN Dizziness 12/13/21 12/19/21 diphenhydramine HCl 25 mg tablet 25 mg PO HS 12/19/21 12/19/21 Previous Rx's Medication Instructions Recorded OneTouch Ultra Test (blood sugar #100 ea 01/14/21 diagnostic) allopurinol 100 mg tablet 100 mg PO DAILY #90 tabs 01/14/21 mirtazapine 7.5 mg tablet 7.5 mg PO HS #90 tabs 02/14/21 glimepiride 2 mg tablet 2 mg PO BID #180 tabs 03/04/21 levothyroxine 112 mcg tablet 112 mcg PO QAM #90 tabs 03/04/21 rosuvastatin 40 mg tablet 40 mg PO HS #90 tabs 03/04/21 lisinopril 30 mg tablet 30 mg PO QAM #90 tabs 06/24/21 montelukast 10 mg tablet 10 mg PO HS #90 tabs 06/24/21 mupirocin 2 % topical ointment 1 applic topical QID #22 grams 08/14/21 ropinirole 0.25 mg tablet 1 mg PO HS #120 tabs 09/09/21 aspirin 325 mg tablet 325 mg PO DAILY #30 tabs 09/10/21 diltiazem HCl 240 mg capsule,24 240 mg PO QAM #90 caps 11/07/21 hr,extended release (Tiadylt ER) pregabalin 75 mg capsule (Lyrica) 75 mg PO BID #60 caps 12/02/21 fesoterodine 8 mg tablet,extended 8 mg PO DAILY #30 tabs 12/13/21 release 24 hr Results & Data (ED) Vital Signs Vital Signs - 24 hr 12/19/21 18:55 12/19/21 21:00 Temperature 37.2 C Temperature Source Temporal Artery Scan Pulse Rate 114 H Pulse Rate [Left Finger] 101 H Pulse Rhythm Regular Pulse Strength Normal Respiratory Rate 20 18 Respiratory Effort / Characteristics Non-Labored Respiratory Depth Normal Blood Pressure 122/69 Blood Pressure [Right Arm] 145/78 H Blood Pressure Mean 86 Blood Pressure Mean [Right Arm] 100 Pulse Oximetry 97 98 Oxygen Delivery Method Room Air Room Air Sepsis Recent Fever Within 48 Hours No Sepsis New/Unexplained Change in Mental Status N/A Sepsis Action Taken by Nursing No Action Required Laboratory Data Result diagrams: 12/19/21 19:08 12/19/21 19:08 Lab Results 12/19/21 12/19/21 12/19/21 Range/Units 19:08 19:08 19:08 WBC 11.59 H (4.8-10.8) K/ul RBC 4.03 (3.93-5.22) M/uL Hgb 12.7 (12.0-16.0) g/dl Hct 37.3 (34.1-44.9) % MCV 92.6 (80.0-100.0) fL MCH 31.5 (25.0-34.0) pg MCHC 34.0 (32.0-36.0) g/dL RDW Std Deviation 49.2 H (36.4-46.3) fL RDW Coeff of Charles 14.6 H (11.5-14.5) % Plt Count 160 (130-400) K/uL MPV 12.0 (9.4-12.3) fL Immature Gran % (Auto) 0.3 % Neut % (Auto) 87.6 % Lymph % (Auto) 7.2 % [place] % (Auto) 4.7 % Eos % (Auto) 0.1 % Baso % (Auto) 0.1 % Neut # (Auto) 10.15 H (1.4-6.5) K/uL Lymph # (Auto) 0.84 L (1.2-3.4) K/uL [place] # (Auto) 0.54 (0.24-0.82) K/uL Eos # (Auto) 0.01 (0-0.50) K/uL Baso # (Auto) 0.01 (0-0.2) K/uL Immature Gran # (Auto) 0.04 H (0.00-0.02) K/uL Sodium 137 (136-145) mmol/L Potassium 4.2 (3.5-5.1) mmol/L Chloride 104 (98-107) mmol/L Carbon Dioxide 24 (21-32) mmol/L Anion Gap 9 (3-11) BUN 14 (6-23) mg/dl Creatinine 1.08 (0.6-1.2) mg/dl Est Cr Clr Drug Dosing Not Reportable Est GFR ( Amer) 61.1 ml/min Est GFR (Non-Af Amer) 52.7 ml/min BUN/Creatinine Ratio 13.0 (10-20) Glucose 137 H (70-99(Fasting)) mg/dl Calcium 9.5 (8.5-10.1) mg/dl Total Bilirubin 0.7 (0.2-1.0) mg/dl AST 17 (13-39) U/L ALT 12 (7-52) U/L Alkaline Phosphatase 68 (34-104) U/L Total Protein 7.8 (6.0-8.3) gm/dl Albumin 4.1 (3.4-5.0) gm/dl Globulin 3.7 (2.5-4.0) gm/dl Albumin/Globulin Ratio 1.1 (0.9-2) Urine Color Yellow Urine Appearance Cloudy A (Clear) Urine pH 5.0 (4.5-7.5) Ur Specific [place] 1.021 (1.000-1.030) Urine Protein 1+ H (Negative) Urine Glucose (UA) Negative (Negative) Urine Ketones Negative (Negative) Urine Blood Negative (Negative) Urine Nitrite Negative (Negative) Urine Bilirubin Negative (Negative) Urine Urobilinogen Negative (Negative) Ur Leukocyte Esterase 2+ H (Negative) Urine WBC (Auto) >30 H (0-5) /hpf Urine RBC (Auto) 0-4 (0-4) /hpf U Hyaline Cast (Auto) 1-5 (0-5) /lpf U Epithel Cells (Auto) >30 H (0-5) /lpf Urine Bacteria (Auto) 1+ H (Negative) SARS-CoV-2 (PCR) (Negative) Influenza Type A (PCR) (Neg) Influenza Type B (PCR) (Neg) RSV (RT-PCR) (Neg) 12/19/21 Range/Units 19:08 WBC (4.8-10.8) K/ul RBC (3.93-5.22) M/uL Hgb (12.0-16.0) g/dl Hct (34.1-44.9) % MCV (80.0-100.0) fL MCH (25.0-34.0) pg MCHC (32.0-36.0) g/dL RDW Std Deviation (36.4-46.3) fL RDW Coeff of Charles (11.5-14.5) % Plt Count (130-400) K/uL MPV (9.4-12.3) fL Immature Gran % (Auto) % Neut % (Auto) % Lymph % (Auto) % [place] % (Auto) % Eos % (Auto) % Baso % (Auto) % Neut # (Auto) (1.4-6.5) K/uL Lymph # (Auto) (1.2-3.4) K/uL [place] # (Auto) (0.24-0.82) K/uL Eos # (Auto) (0-0.50) K/uL Baso # (Auto) (0-0.2) K/uL Immature Gran # (Auto) (0.00-0.02) K/uL Sodium (136-145) mmol/L Potassium (3.5-5.1) mmol/L Chloride (98-107) mmol/L Carbon Dioxide (21-32) mmol/L Anion Gap (3-11) BUN (6-23) mg/dl Creatinine (0.6-1.2) mg/dl Est Cr Clr Drug Dosing Est GFR ( Amer) ml/min Est GFR (Non-Af Amer) ml/min BUN/Creatinine Ratio (10-20) Glucose (70-99(Fasting)) mg/dl Calcium (8.5-10.1) mg/dl Total Bilirubin (0.2-1.0) mg/dl AST (13-39) U/L ALT (7-52) U/L Alkaline Phosphatase (34-104) U/L Total Protein (6.0-8.3) gm/dl Albumin (3.4-5.0) gm/dl Globulin (2.5-4.0) gm/dl Albumin/Globulin Ratio (0.9-2) Urine Color Urine Appearance (Clear) Urine pH (4.5-7.5) Ur Specific [place] (1.000-1.030) Urine Protein (Negative) Urine Glucose (UA) (Negative) Urine Ketones (Negative) Urine Blood (Negative) Urine Nitrite (Negative) Urine Bilirubin (Negative) Urine Urobilinogen (Negative) Ur Leukocyte Esterase (Negative) Urine WBC (Auto) (0-5) /hpf Urine RBC (Auto) (0-4) /hpf U Hyaline Cast (Auto) (0-5) /lpf U Epithel Cells (Auto) (0-5) /lpf Urine Bacteria (Auto) (Negative) SARS-CoV-2 (PCR) NEGATIVE (Negative) Influenza Type A (PCR) Negative (Neg) Influenza Type B (PCR) Negative (Neg) RSV (RT-PCR) Negative (Neg) Administered Medications Discontinued Medications Acetaminophen (Acetaminophen 500 Mg Tab) 1,000 mg PO NOW STA Stop: 12/19/21 21:01 Last Admin: 12/19/21 21:20 Dose: 1,000 mg Documented By: MARZENA Albuterol (Albuterol Hfa 8 Gm Inhaler) 2 puffs INH NOW ONE Stop: 12/19/21 21:43 Last Admin: 12/19/21 21:55 Dose: 2 puffs Documented By: MARZENA Sodium Chloride (Nss 1000ml) 500 mls @ 999 mls/hr IV .Q31M ONE Stop: 12/19/21 21:30 Last Infusion: 12/19/21 21:58 Dose: 0 mls/hr Documented By: Admin: 12/19/21 21:21 Dose: 999 mls/hr Documented By: MARZENA Ceftriaxone Sodium (Rocephin) 2,000 mg in 70 mls @ 140 mls/hr IV NOW STA Stop: 12/19/21 21:29 Last Infusion: 12/19/21 21:58 Dose: 0 mls/hr Documented By: Admin: 12/19/21 21:21 Dose: 140 mls/hr Documented By: MARZENA Ondansetron HCl (Ondansetron Inj 2 Mg/Ml 2 Ml Vial) 4 mg IV NOW STA Stop: 12/19/21 21:01 Last Admin: 12/19/21 21:20 Dose: 4 mg Documented By: MARZENA Discharge Plan Visit Data Chief Complaint: Pain (Generalized) Stated Complaint: BODY ACHES ALL OVER, COLD ED Provider: Robin Avila Discharge Problem: Flu-like symptoms, Acute sore throat, Productive cough, Acute UTI (urinary tract infection), Myalgia Forms Stand Alone Forms: [facility] Prescriptions Prescriptions: No Action clotrimazole-betamethasone 1-0.05 % cream 1 applic topical BID PRN (Reason: Skin Irritation) Rx Instructions: Apply a small amount to abdomen site topical twice a day; (DME) OneTouch Ultra Test Strip See Rx Instructions .Route Qty: 100 3RF Rx Instructions: use to test once daily allopurinol 100 mg tablet 100 mg PO DAILY Qty: 90 3RF mirtazapine 7.5 mg tablet 7.5 mg PO HS Qty: 90 3RF glimepiride 2 mg tablet 2 mg PO BID Qty: 180 3RF rosuvastatin 40 mg tablet 40 mg PO HS Qty: 90 3RF levothyroxine 112 mcg tablet 112 mcg PO QAM Qty: 90 3RF lisinopril 30 mg tablet 30 mg PO QAM Qty: 90 3RF montelukast 10 mg tablet 10 mg PO HS Qty: 90 3RF ropinirole 0.25 mg tablet 1 mg PO HS Qty: 120 5RF Rx Instructions: TAKES 4 TABS. pregabalin [Lyrica] 75 mg capsule 75 mg PO BID Qty: 60 0RF aspirin 325 mg tablet 325 mg PO DAILY Qty: 30 2RF clonidine HCl 0.1 mg tablet 0.1 mg PO BID ibuprofen 800 mg tablet 800 mg PO TID meclizine 25 mg tablet 25 mg PO DAILY PRN (Reason: Dizziness) diphenhydramine HCl [Benadryl] 25 mg capsule 25 mg PO TID PRN (Reason: as directed) indomethacin 25 mg capsule 25 mg PO TID Rx Instructions: administer with food or milk duloxetine 60 mg capsule,delayed release(DR/EC) 60 mg PO DAILY fesoterodine 8 mg tablet extended release 24 hr 8 mg PO DAILY Qty: 30 2RF diltiazem HCl [Tiadylt ER] 240 mg capsule,extended release 24 hr 240 mg PO QAM Qty: 90 0RF cholecalciferol (vitamin D3) [Vitamin D3] 25 mcg (1,000 unit) capsule 2,000 unit PO QAM diphenhydramine HCl [Nervine] 25 mg Tablet 25 mg PO HS acetaminophen 500 mg Capsule 1,000 mg PO Q6 PRN (Reason: Pain) mupirocin 2 % ointment 1 applic topical QID Qty: 22 0RF Referrals Referrals: Maxim Renee MD [Primary Care Provider] -
--- NOTE | 2021-12-19 22:57 | History & Physical Report ---
Date of Service December 19, 2021 Assessment & Plan (1) Flu-like symptoms: Plan: 66yo female with a history of HTN, HLD, CAD, CHF, DM2, obesity, SHAN, OA, hypothyroidism, PMR, RLS, GERD, and fibromyalgia presents with a two-day history of flu-like symptoms including cough, sore throat, poor appetite, generalized body ache, nausea, feeling feverish, chills, and back pain, in addition to increased urinary frequency. Flu-like symptoms Patient presents with a two-day history of cough, sore throat, poor appetite, body aches, nausea, vomiting, feverishness, chills, and back pain Hemodynamically stable, afebrile, spO2 adequate on room air Labs only notable for mild leukocytosis (11.6) CXR without acute process EKG: sinus tachycardia, no overt ischemia; hsTroponin wnl Respiratory biofire negative Patient received a dose of ceftriaxone in the ED NSS @ 60mL/hr (x1 bag ordered) Pain control: ibuprofen 600mg q6h scheduled (pt reports allergies to tramadol, toradol, oxycodone, morphine, hydrocodone, hydromorphone) Procalcitonin, ESR pending Trend CBC, BMP DM2 HbA1c 8.2% (09/10/21), repeat value ordered Patient's home regimen held on admission Continue BSG checks, sliding-scale insulin, hypoglycemic protocol Urinary frequency UA: 1+ protein, 2+ leuk esterase, WBC >30, and 1+ bacteria, though sample was possible contaminated Received a dose of ceftriaxone in the ED Patient reports her urinary frequency is no better or worse compared to normal Low supsicion that this represents a true UTI; will hold off on further antibiotics for now HTN: continue home lisinopril, diltiazem HLD/CAD: continue home rosuvastatin, ASA Hypothyroidism: continue home synthroid Fibromyalgia: continue home lyrica RLS: continue home ropinirole MDD: continue home duloxetine, mirtazapine, clonidine Urinary incontinence: continue home fesoterodine FEN: heart healthy, DM2 diet, NSS @ 60mL/hr (x1 bag ordered) Code status: DNR/DNI DVT ppx: SCDs PT/OT: ordered Dispo: med/surg (2) Acute sore throat: (3) CAD (coronary artery disease): (4) Chronic back pain: (5) Congestive heart failure, unspecified: (6) Depression: (7) Diabetes mellitus, type 2: (8) GERD (gastroesophageal reflux disease): (9) Hyperlipidemia: (10) Hypertension: (11) Hypotension: (12) Hypothyroidism: (13) Insomnia: (14) Neuropathy: (15) Obesity: (16) Restless leg syndrome: (17) Severe sleep apnea: (18) Urinary incontinence: History of Present Illness Primary Care Provider: Maxim Renee MD 66yo female with a history of HTN, HLD, CAD, CHF, DM2, obesity, SHAN, OA, hypothyroidism, PMR, RLS, GERD, urinary incontinence, and fibromyalgia presents with a two-day history of flu-like symptoms including nonproductive cough, sore throat, poor appetite, generalized body ache, nausea, feeling feverish, chills, and back pain, in addition to increased urinary frequency. Patient has had a few episodes of nonbilious/nonbloody vomit. Patient denies vision changes, CP, palpitations, SOB, edema, pain with urination, hematochezia, melena, numbness, tingling, or other symptoms. Denies recent illness and recent travel. Denies known tick exposure. Upon arrival, vitals were notable for slightly elevated BP (145/78) and tachycardia (100-110s); no tachypnea, patient afebrile, spO2 adequate on room air. Initial labs were notable for mild leukocytosis (11.6); no anemia, platelets wnl, no electrolyte abnormalities, creatinine not elevated, LFTs wnl, Tbili not elevated, respiratory biofire negative. UA was notable for 1+ protein, 2+ leuk esterase, WBC >30, and 1+ bacteria, but may have been a contaminated sample. Procalcitonin pending. In the ED, patient received NSS 500mL bolus (x1), ceftriaxone, albuterol, zofran, and acetaminophen. EKG: sinus tachycardia, no overt ischemic change CXR: no acute findings Surrogate decision-maker in case of an emergency: derrick Trevizo (cell: [phone]) Allergies Allergy/AdvReac Type Severity Reaction Status Date / Time ketorolac [From Toradol] Allergy Severe throat Verified 12/19/21 22:53 swelling morphine Allergy Severe severe Verified 12/19/21 22:53 back pain, stomach pain propoxyphene Allergy Intermediate itchy,RASH Verified 12/19/21 22:53 hydrocodone AdvReac Intermediate ITCH Verified 12/19/21 22:53 hydromorphone AdvReac Intermediate itchy Verified 12/19/21 22:53 oxycodone AdvReac Intermediate itchy Verified 12/19/21 22:53 tramadol AdvReac Intermediate ITCH Verified 12/19/21 22:53 Home Medications Medication Instructions Recorded Confirmed Type clotrimazole-betamethasone 1 1 applic topical BID PRN Skin 10/10/20 12/19/21 History %-0.05 % topical cream Irritation acetaminophen 500 mg capsule 1,000 mg PO Q6 PRN Pain 11/14/20 12/19/21 History OneTouch Ultra Test (blood sugar #100 ea 01/14/21 12/19/21 Rx diagnostic) allopurinol 100 mg tablet 100 mg PO DAILY #90 tabs 01/14/21 12/19/21 Rx mirtazapine 7.5 mg tablet 7.5 mg PO HS #90 tabs 02/14/21 12/19/21 Rx glimepiride 2 mg tablet 2 mg PO BID #180 tabs 03/04/21 12/19/21 Rx levothyroxine 112 mcg tablet 112 mcg PO QAM #90 tabs 03/04/21 12/19/21 Rx rosuvastatin 40 mg tablet 40 mg PO HS #90 tabs 03/04/21 12/19/21 Rx lisinopril 30 mg tablet 30 mg PO QAM #90 tabs 06/24/21 12/19/21 Rx montelukast 10 mg tablet 10 mg PO HS #90 tabs 06/24/21 12/19/21 Rx mupirocin 2 % topical ointment 1 applic topical QID #22 grams 08/14/21 12/19/21 Rx ropinirole 0.25 mg tablet 1 mg PO HS #120 tabs 09/09/21 12/19/21 Rx aspirin 325 mg tablet 325 mg PO DAILY #30 tabs 09/10/21 12/19/21 Rx cholecalciferol (vitamin D3) 25 2,000 unit PO QAM 10/25/21 12/19/21 History mcg (1,000 unit) capsule (Vitamin D3) diltiazem HCl 240 mg capsule,24 240 mg PO QAM #90 caps 11/07/21 12/19/21 Rx hr,extended release (Tiadylt ER) pregabalin 75 mg capsule (Lyrica) 75 mg PO BID #60 caps 12/02/21 12/19/21 Rx clonidine HCl 0.1 mg tablet 0.1 mg PO BID 12/13/21 12/19/21 History diphenhydramine HCl 25 mg capsule 25 mg PO TID PRN as directed 12/13/21 12/19/21 History (Benadryl) duloxetine 60 mg capsule,delayed 60 mg PO DAILY 12/13/21 12/19/21 History release fesoterodine 8 mg tablet,extended 8 mg PO DAILY #30 tabs 12/13/21 12/19/21 Rx release 24 hr ibuprofen 800 mg tablet 800 mg PO TID 12/13/21 12/19/21 History indomethacin 25 mg capsule 25 mg PO TID 12/13/21 12/19/21 History meclizine 25 mg tablet 25 mg PO DAILY PRN Dizziness 12/13/21 12/19/21 History diphenhydramine HCl 25 mg tablet 25 mg PO HS 12/19/21 12/19/21 History amoxicillin 875 mg-potassium 1 tab PO BIDM #20 tabs 12/20/21 Rx clavulanate 125 mg tablet Past Med/Surg History Medical History (Updated 12/20/21 @ 12:53 by Lindsey Dhillon PA-C) Anemia CAD (coronary artery disease) Carpal tunnel syndrome Chronic back pain GETS INJECTIONS Congestive heart failure, unspecified (02/21/12) Depression Diabetes mellitus, type 2 niddm Enlarged liver Fibromyalgia GERD (gastroesophageal reflux disease) Goiter, unspecified (02/21/12) Gout Hyperlipidemia Hypertension Hypothyroidism Intestinal infection due to Clostridium difficile (02/21/12) Lymphedema Morbid obesity with BMI of 40.0-44.9, adult Osteoarthritis Pulmonary nodules Restless leg syndrome Sacroiliitis, not elsewhere classified (02/21/12) Sinusitis Sleep apnea cpap (non-compliant) SOB (shortness of breath) on exertion Spinal stenosis Temporomandibular joint disorder HX RIGHT SIDE-S/P PT/IMPROVED Urinary incontinence Urinary incontinence Vitamin D deficiency Surgical History (Updated 09/10/21 @ 10:10 by Maxim Renee MD) History of appendectomy History of cardiac cath 09/01/2017 @ [facility] by Dr. Russo--follows with Trever Andrade History of carpal tunnel release right hand History of section x2 History of cholecystectomy History of colonoscopy History of dilatation and curettage History of esophagogastroduodenoscopy (EGD) History of tooth extraction wisdom teeth History of total abdominal hysterectomy and bilateral salpingo-oophorectomy S/P epidural steroid injection S/P lumbar fusion 11/15/2020-L5-S1 decompression and fusion-Dr. Gomez Status post right foot surgery Family History (Updated 09/10/21 @ 10:11 by Maxim Renee MD) Father Family history of diabetes mellitus Diabetes Lung cancer Lung disease Heart disease Grandmother (Maternal) Family hx of colon cancer Mother Hypertension Kidney disease Other Colorectal cancer Denies family history of Ovarian cancer Prostate cancer Breast cancer Social History (Updated 09/10/21 @ 10:11 by Maxim Renee MD) Smoking Status: Never smoker Second Hand Exposure: No; Hx Alcohol Use: No Hx Substance Use: No Preferred Language: Frisian Communication Ability: Effective Visual Impairment: Limited Hearing Ability: Hard of Hearing Telemarketing Agent Required: No Beliefs That Will Affect Care: None marital status: Current Living Situation: Alone current occupational status: retired current occupation: used to work multiple jobs Feels Safe at Home: Yes Childhood Exposure to Second-Hand Smoke: Yes caffeine: Yes during the past year weight has: remained stable Dental Care, Regularly: No Physical Activity Frequency: Does not Exercise Seatbelt Use: always Sunscreen Use: No Assistive Devices: Cane and Glasses Physical Exam Physical Exam: Constitutional: tired-appearing, no acute distress HEENT: NCAT, no conjunctival injection, MMM CV: regular rhythm, no murmur appreciated, extremities well-perfused, no LE edema Resp: CTABL, no wheezes/rales/rhonchi appreciated, no increased work of breathing GI: soft, nondistended, mild generalized tenderness, BS normoactive MSK: no gross deformities appreciated Skin: warm, dry, no rash appreciated Neuro: alert, oriented, no focal neurologic deficit appreciated Results & Data Results & Data ([facility]) Vital Signs (Past 12 Hours) Vital Signs Temp Pulse Pulse Resp BP BP Pulse Ox 12/19/21 21:00 101 H 18 145/78 H 98 12/19/21 18:55 37.2 C 114 H 20 122/69 97 O2 Del Method 12/19/21 21:00 Room Air 12/19/21 18:55 Room Air Supervising Physician Co-Signing Physician Notes Attending addendum: I have physically seen this patient, have supervised the medical residents activities, and agree with the H&P unless as otherwise noted. Assessment and Plan: Flulike symptoms- Testing negative for COVID-19, RSV and influenza Chest x-ray negative Respiratory bio fire negative No further indication for ceftriaxone after single dose given in the ED NSS at 60 mils per hour Order procalcitonin and ESR Diabetes mellitus- Placed on Accu-Cheks with sliding scale coverage Most recent hemoglobin A1c on 09/10/2021 was 8.2 Urinary frequency- Follow urine culture and sensitivity Status post ceftriaxone from the ED IV fluids as noted above Hypertension/CAD- Continue lisinopril and diltiazem with hold parameters Continue aspirin Remaining orders and notations as noted Resident Activity Tracking Resident Involvement: Resident Care Provided and Fulfillment Coordinator Coverage Note Care Provided: Adult Hospital Medicine (1) Obesity Body mass index: BMI 40.0-44.9 Obesity classification: adult class 3 (BMI >= 40) Obesity type: due to excess calories Serious obesity comorbidity presence: with serious comorbidity Qualified Code(s): E66.01 - Morbid (severe) obesity due to excess calories; Z68.41 - Body mass index [BMI] 40.0-44.9, adult
[2021-12-19] MEDS ORDERED: PREGABALIN 75 MG CAP PO ONE (23:15)
[2021-12-19] MEDS ORDERED: rOPINIRole HCL 1 MG TABLET PO ONE (23:15)
[2021-12-19] MEDS ORDERED: cloNIDine HCL 0.1 MG TAB PO ONE (23:15)
[2021-12-19] MEDS ORDERED: MIRTAZAPINE TAB 15 MG TAB PO ONE (23:15)
[2021-12-19] MEDS ORDERED: ROSUVASTATIN CALCIUM 20 MG TAB PO ONE (23:15)
[2021-12-19] MEDS ORDERED: MONTELUKAST SODIUM 10 MG TABLET PO ONE (23:15)
[2021-12-19] MEDS ORDERED: GLUCOSE 10 TAB/TUBE PO PRN (23:40)
[2021-12-19] MEDS ORDERED: CARBOHYDRATES FOR HYPOGLYCEMIA PO PRN (23:40)
[2021-12-19] MEDS ORDERED: GLUCAGON FOR INJ 1 MG VIAL SQ PRN (23:40)
[2021-12-19] MEDS ORDERED: DEXTROSE 50% 50 ML SYRINGE IV PRN (23:40)
[2021-12-19] MEDS ORDERED: GLUCOSE 40% GEL 15 GM TUBE PO PRN (23:40)
[2021-12-19] MEDS ORDERED: IBUPROFEN 600 MG TAB PO ONE (23:47)
[2021-12-19 23:56] LABS: Adenovirus PCR Not Detected (NotDetected); Bordetella parapertussis PCR Not Detected (NotDetected); Bordetella pertussis PCR Not Detected (NotDetected); Chlamydia pneumoniae PCR Not Detected (NotDetected); Coronavirus 229E PCR Not Detected (NotDetected); Coronavirus CoV-2 (COVID19)PCR Not Detected (NotDetected); Coronavirus HKU1 PCR Not Detected (NotDetected); Coronavirus NL63 PCR Not Detected (NotDetected); Coronavirus OC43PCR Not Detected (NotDetected); Human Metapneumovirus PCR Not Detected (NotDetected); Influenza A PCR Not Detected (NotDetected); Influenza B PCR Not Detected (NotDetected); Mycoplasma pneumoniae PCR Not Detected (NotDetected); Parainfluenza Virus 1 PCR Not Detected (NotDetected); Parainfluenza Virus 2 PCR Not Detected (NotDetected); Parainfluenza Virus 3 PCR Not Detected (NotDetected); Parainfluenza Virus 4 PCR Not Detected (NotDetected); Respiratory Syncytial VirusPCR Not Detected (NotDetected); Rhinovirus/Enterovirus PCR Not Detected (NotDetected)
[2021-12-20] MEDS: IBUPROFEN 600 MG TAB PO SCH ×3 (00:07→12:26)
[2021-12-20] MEDS ORDERED: MELATONIN 3 MG TAB PO PRN (00:27)
[2021-12-20] MEDS ORDERED: POLYETHYLENE (MIRALAX) 17 GM PACK PO PRN (00:27)
[2021-12-20] MEDS ORDERED: ONDANSETRON INJ 2 MG/ML 2 ML VIAL IV PRN (00:27)
[2021-12-20] MEDS ORDERED: rOPINIRole HCL 1 MG TABLET PO ONE (01:00)
[2021-12-20] MEDS ORDERED: SODIUM CHLORIDE 0.9% 1000ML 500 ML IV SCH (01:00)
[2021-12-20] MEDS ORDERED: LEVOTHYROXINE SODIUM 112 MCG TABLET PO SCH (06:30)
--- NOTE | 2021-12-20 07:21 | XRay Report ---
SINGLE VIEW CHEST CLINICAL HISTORY: Flulike symptoms. FINDINGS: An AP, portable, upright chest radiograph is compared to study dated 08/12/2021 and correlate d with chest CT dated 05/29/2021. The examination is degraded by portable technique and patient rotati on. The cardiomediastinal silhouette is unremarkable noting atherosclerotic calcification of the thor acic aorta. Chronic interstitial thickening is similar to previous. There are mild bibasilar airspace opacities. No large pleural effusion or pneumothorax is seen. The skeletal structures are osteopenic . The bony thorax is grossly intact. Calcific tendinopathy is noted in the left shoulder. IMPRESSION: Mild bibasilar opacities likely represent atelectasis. Clinical correlation will be requi red. ACT 112: Negative or not required by law. Electronically signed by: Agustin Elder M.D. 12/20/2021 7:19 AM
[2021-12-20] MEDS ORDERED: COUGH DROP (SUGAR FREE) LOZ 24 LOZ/1 BOX BUCCAL PRN (08:11)
[2021-12-20 08:16] LABS: Hematocrit (blood only) 32.9 % (34.1-44.9); Hemoglobin 10.8 g/dl (12.0-16.0); Mean Corpuscular Hemoglobin 30.8 pg (25.0-34.0); Mean Corpuscular Hgb Conc 32.8 g/dL (32.0-36.0); Mean Corpuscular Volume 93.7 fL (80.0-100.0); Mean Platelet Volume 12.1 fL (9.4-12.3); Platelet Count 106 K/uL (130-400); RDW Coefficient of Variation 15.1 % (11.5-14.5); RDW Standard Deviation 51.7 fL (36.4-46.3); Red Blood Count 3.51 M/uL (3.93-5.22); White Blood Count 8.66 K/ul (4.8-10.8)
[2021-12-20 08:21] LABS: Estimated Average Glucose 200 mg/dl; Hemoglobin A1C 8.6 % (4.5-5.6)
[2021-12-20] MEDS: INSULIN ASPART PER UNIT SC SCH ×2 (08:30→12:25)
[2021-12-20] MEDS ORDERED: dilTIAZem HCL 240 MG CAPCR PO SCH (09:00)
[2021-12-20] MEDS ORDERED: ASPIRIN 325 MG ECTAB PO SCH (09:00)
[2021-12-20] MEDS ORDERED: lisinopril 10 MG TAB PO SCH (09:00)
[2021-12-20] MEDS ORDERED: PREGABALIN 75 MG CAP PO SCH (09:00)
[2021-12-20] MEDS ORDERED: cloNIDine HCL 0.1 MG TAB PO SCH (09:00)
[2021-12-20] MEDS ORDERED: DULoxetine HCL 60 MG CAP PO SCH (09:00)
[2021-12-20 09:54] LABS: Albumin Globulin Ratio 1.2 (0.9-2); Albumin Level 3.6 gm/dl (3.4-5.0); BUN Creatinine Ratio 13.7 (10-20); Bilirubin,Total 0.5 mg/dl (0.2-1.0); Calcium 8.5 mg/dl (8.5-10.1); Chol HDL Ratio 4.6 (0-5); Creatinine Clr Calc Pharmacy 60.5 ml/min; Est GFR (African American) 65.5 ml/min; Est GFR (Non-African American) 56.5 ml/min; Globulin 3.1 gm/dl (2.5-4.0); Magnesium 1.7 mg/dl (1.7-2.4); Phosphorus 3.9 mg/dl (2.5-4.9); Potassium 3.7 mmol/L (3.5-5.1); Total Protein 6.7 gm/dl (6.0-8.3)
--- NOTE | 2021-12-20 13:00 | Discharge Summary ---
Date of Service December 20, 2021 Admission HPI Per Admitting Provider 66yo female with a history of HTN, HLD, CAD, CHF, DM2, obesity, SHAN, OA, hypothyroidism, PMR, RLS, GERD, urinary incontinence, and fibromyalgia presents with a two-day history of flu-like symptoms including nonproductive cough, sore throat, poor appetite, generalized body ache, nausea, feeling feverish, chills, and back pain, in addition to increased urinary frequency. Patient has had a few episodes of nonbilious/nonbloody vomit. Patient denies vision changes, CP, palpitations, SOB, edema, pain with urination, hematochezia, melena, numbness, tingling, or other symptoms. Denies recent illness and recent travel. Denies known tick exposure. Upon arrival, vitals were notable for slightly elevated BP (145/78) and tachycardia (100-110s); no tachypnea, patient afebrile, spO2 adequate on room air. Initial labs were notable for mild leukocytosis (11.6); no anemia, platelets wnl, no electrolyte abnormalities, creatinine not elevated, LFTs wnl, Tbili not elevated, respiratory biofire negative. UA was notable for 1+ protein, 2+ leuk esterase, WBC >30, and 1+ bacteria, but may have been a contaminated sample. Procalcitonin pending. In the ED, patient received NSS 500mL bolus (x1), ceftriaxone, albuterol, zofran, and acetaminophen. EKG: sinus tachycardia, no overt ischemic change CXR: no acute findings Surrogate decision-maker in case of an emergency: derrick Trevizo (cell: [phone]) Principal Diagnosis Flu-like symptoms, likely viral URI Discharge Exam GENERAL: 66 yo Well-developed, well-nourished obese WF. NAD. HENT: Moist mucous membranes. No scleral icterus. Mild ACC lymphadenopathy. LUNGS: Clear to auscultation bilaterally. No accessory muscle use. No W/R/R. CARDIOVASCULAR: Regular rate and rhythm. No M/G/R. No JVD. ABDOMEN: Soft, non-tender and non-distended. No palpable masses. Bowel sounds normoactive x 4 quad. EXTREMITIES: No edema. Non-tender. Peripheral pulses +2/4. NEUROLOGIC: A&O x3. Nonfocal PSYCHIATRIC: Cooperative. Appropriate mood and affect. SKIN: Warm, dry, intact. No rashes or lesions. Discharge Data Allergies Allergy/AdvReac Type Severity Reaction Status Date / Time ketorolac [From Toradol] Allergy Severe throat Verified 12/19/21 22:53 swelling morphine Allergy Severe severe Verified 12/19/21 22:53 back pain, stomach pain propoxyphene Allergy Intermediate itchy,RASH Verified 12/19/21 22:53 hydrocodone AdvReac Intermediate ITCH Verified 12/19/21 22:53 hydromorphone AdvReac Intermediate itchy Verified 12/19/21 22:53 oxycodone AdvReac Intermediate itchy Verified 12/19/21 22:53 tramadol AdvReac Intermediate ITCH Verified 12/19/21 22:53 Consultations 12/19/21 22:26 ED Decision to Admit Stat Ordered Studies Chest X-Ray 12/19/21 20:50 SINGLE VIEW CHEST CLINICAL HISTORY: Flulike symptoms. FINDINGS: An AP, portable, upright chest radiograph is compared to study dated 08/12/2021 and correlated with chest CT dated 05/29/2021. The examination is degraded by portable technique and patient rotation. The cardiomediastinal silhouette is unremarkable noting atherosclerotic calcification of the thoracic aorta. Chronic interstitial thickening is similar to previous. There are mild bibasilar airspace opacities. No large pleural effusion or pneumothorax is seen. The skeletal structures are osteopenic. The bony thorax is grossly intact. Calcific tendinopathy is noted in the left shoulder. IMPRESSION: Mild bibasilar opacities likely represent atelectasis. Clinical correlation will be required. ACT 112: Negative or not required by law. Electronically signed by: Agustin Elder M.D. 12/20/2021 7:19 AM Hospital Course (1) Viral URI: - Presented with 2-day history of cough, sore throat, body aches - Biofire negative (neg for covid, rsv, influenza) - Mild leukocytosis of 11.6 on admit and isolated temp of 38.3C overnight around 11pm - WBC normal this AM and afebrile - Given a dose of Rocephin in ED, no further abx ordered - Sinus congestion and headache -- suspect viral URI with sinusitis, will treat with 10 day course of Augmentin - UA dirty but suspect contaminated with skin cells - CXR negative for PNA - Procal minimal increase at 0.6, ESR elevated, and shift on cbc differential - Thrombocytopenia also noted with platelet count of 106, will add tick borne illness w/u today (of note, LFTs wnl) (2) Headache: - Suspect secondary to sinusitis - Treat as outlined above - Can also use apap as needed for headache (3) Hypertension: - Stable, continue meds (4) Hyperlipidemia: - Continue crestor (5) Hypothyroidism: - Continue Synthroid (6) GERD (gastroesophageal reflux disease): - does not appear to be on PPI (7) CAD (coronary artery disease): - Continue ASA, no cp (8) Diabetes mellitus, type 2: - Poorly controlled, a1c 8.6% - Continue meds, PCP follow up Plan At this time, pt is not septic, blood cultures are pending but not persistently febrile. Given h/o sinusitis and clinical presentation, will treat with 10 day course of Augmentin. Tick borne w/u also ordered and will need to be followed up by her PCP. I did personally contact pt's PCP with whom she follows (Erika Thibodeaux). She will follow up with pt in office and f/u on labs ordered. Plan d/w Dr. Gonzalez. Total Time Total Time Spent Total Time Spent (In Minutes): <30 minutes Discharge Plan Discharge Items Patient Disposition: Home - Self-Care Reason For Visit: FLU-LIKE SYMPTOMS Discharge Diagnosis: flu-like symptoms, suspect viral upper respiratory infection Activity: Resume your previous activity Non-emergency contact: Primary Care Provider Call non-emergency contact if: you have any medication questions Follow-up/Referrals: Maxim Renee MD [Primary Care Provider] - 12/25/21 2:00 pm (APPT WITH ALEJANDRO ABRAHAM) Diet: Carb Consistent or DM2 Addtl Attending Provider Instructions: You were hospitalized due to flu-like symptoms. Fortunately, your viral panel was negative (you were negative for RSV, influenza A and B, and COVID). You likely have a viral upper respiratory infection with associated inflammation in your sinuses which is contributing to your sinus congestion and headache. Will start you on a 10 day course of Augmentin. You can start this medication this evening with dinner. You should always take it with food or milk to minimize upset stomach. Also, diarrhea is a common side effect. You will take the Augmentin twice a day. Please complete the course, no pills should be left behind. You can also take Mucinex or Pseudophed over the counter to help with the congestion. You can take Tylenol or Motrin as needed for headache. We have also tested you for tick borne illnesses such as Lyme disease or anaplasmosis. You will need to follow up with your primary care provider, ALEJANDRO Tom, for these results. Ideally, you should be seen by her within 7-10 days of your hospital discharge. If you have any questions or concerns following your discharge, please call the nonemergency contact number listed on your discharge paperwork. In the event of a medical emergency, call 911. Pending Studies at Discharge: Yes Studies:: tick borne illness tests Stand-Alone Forms: My [facility], Smoking Cessation Medications and DC Order Prescriptions: New amoxicillin-pot clavulanate 875-125 mg Tablet 1 tab PO BIDM Qty: 20 0RF Continued clotrimazole-betamethasone 1-0.05 % cream 1 applic topical BID PRN (Reason: Skin Irritation) Rx Instructions: Apply a small amount to abdomen site topical twice a day; (DME) OneTouch Ultra Test Strip See Rx Instructions .Route Qty: 100 3RF Rx Instructions: use to test once daily allopurinol 100 mg tablet 100 mg PO DAILY Qty: 90 3RF mirtazapine 7.5 mg tablet 7.5 mg PO HS Qty: 90 3RF glimepiride 2 mg tablet 2 mg PO BID Qty: 180 3RF rosuvastatin 40 mg tablet 40 mg PO HS Qty: 90 3RF levothyroxine 112 mcg tablet 112 mcg PO QAM Qty: 90 3RF lisinopril 30 mg tablet 30 mg PO QAM Qty: 90 3RF montelukast 10 mg tablet 10 mg PO HS Qty: 90 3RF ropinirole 0.25 mg tablet 1 mg PO HS Qty: 120 5RF Rx Instructions: TAKES 4 TABS. pregabalin [Lyrica] 75 mg capsule 75 mg PO BID Qty: 60 0RF aspirin 325 mg tablet 325 mg PO DAILY Qty: 30 2RF clonidine HCl 0.1 mg tablet 0.1 mg PO BID ibuprofen 800 mg tablet 800 mg PO TID meclizine 25 mg tablet 25 mg PO DAILY PRN (Reason: Dizziness) diphenhydramine HCl [Benadryl] 25 mg capsule 25 mg PO TID PRN (Reason: as directed) indomethacin 25 mg capsule 25 mg PO TID Rx Instructions: administer with food or milk duloxetine 60 mg capsule,delayed release(DR/EC) 60 mg PO DAILY fesoterodine 8 mg tablet extended release 24 hr 8 mg PO DAILY Qty: 30 2RF diltiazem HCl [Tiadylt ER] 240 mg capsule,extended release 24 hr 240 mg PO QAM Qty: 90 0RF cholecalciferol (vitamin D3) [Vitamin D3] 25 mcg (1,000 unit) capsule 2,000 unit PO QAM diphenhydramine HCl 25 mg Tablet 25 mg PO HS acetaminophen 500 mg Capsule 1,000 mg PO Q6 PRN (Reason: Pain) mupirocin 2 % ointment 1 applic topical QID Qty: 22 0RF Discharge Orders: Discharge Order (Routine); Ordered 12/20/21 Ordered By: Lindsey Sexton/Other Patient Handouts: Managing Type 2 Diabetes Admission Data Admit Date/Time: 12/19/21 23:38 Attending Provider: Beau Gonzalez Admit Provider: Tomasz Nair Primary Care Provider: Maxim Renee Other Providers: Marshal Sparrow Other Interventions: Discharge Summary Assessment (RN) Last Done: 12/20/21 13:06 Supervising Physician Co-Signing Physician Notes I supervised Lindsey Dhillon PA-C on the care of this patient. I did not see the patient as she had been admitted <24 hours and seen by an attending in that time. The plan is as written in her note except for any following changes/exceptions: None 66yo F w/ DM who presents for flu-like symptoms. No bacterial cause noted other than possible sinusitis. D/c on Augmentin and PCP follow-up. Coding Level of Care Code 70206 OBS Care - Discharge Diagnoses Viral URI J06.9 Headache R51.9 Headache chronicity pattern: acute headache Headache type: unspecified Intractability: not intractable Hypertension I10 Hyperlipidemia E78.5 Hypothyroidism E03.9 GERD (gastroesophageal reflux disease) K21.9 CAD (coronary artery disease) I25.10 Diabetes mellitus, type 2 E11.9
[2021-12-20 14:23] LABS: Lyme Ab IgG w/WB Rflx Negative (Negative); Lyme Ab IgM w/WB Rflx Negative (Negative)
--- NOTE | 2021-12-20 15:25 | Electrocardiogram Report ---
Test Reason : Blood Pressure : / mmHG Vent. Rate : 101 BPM Atrial Rate : 101 BPM P-R Int : 152 ms QRS Dur : 094 ms QT Int : 380 ms P-R-T Axes : 053 034 040 degrees QTc Int : 492 ms Sinus tachycardia Otherwise normal ECG When compared with ECG of 12-MAY-2021 18:45, No significant change was found Confirmed by Leo Ibarra ([id number]) on 12/20/2021 3:25:31 PM Referred By: REFERRED SELF Confirmed By:Leo Ibarra
[2021-12-20] MEDS ORDERED: AMOXICILLIN/CLAVULANATE 875 MG TAB PO SCH (17:00)
[2021-12-20] MEDS ORDERED: MONTELUKAST SODIUM 10 MG TABLET PO SCH (21:00)
[2021-12-20] MEDS ORDERED: MIRTAZAPINE TAB 15 MG TAB PO SCH (21:00)
[2021-12-20] MEDS ORDERED: rOPINIRole HCL 1 MG TABLET PO SCH ×2 (21:00)
[2021-12-20] MEDS ORDERED: ROSUVASTATIN CALCIUM 20 MG TAB PO SCH (21:00)
--- NOTE | 2021-12-20 21:02 | Billing Data ---
Date of Service December 20, 2021 Coding Level of Care Code INT OBSERVATION CARE 68M LVL 3
--- NOTE | 2021-12-20 21:02 | Billing Data ---
Date of Service December 20, 2021 Coding Level of Care Code INT OBSERVATION CARE 68M LVL 3
[2021-12-23 21:51] LABS: Babesia microti DNA Not Detected (Not Detected)
== END 2021-12-20 14:10 | disposition home or self-care (01) ==
LOC: ED 18:28 → 3E 18:28 → SUATTDRO 23:38 → 3E 12-20 00:12